=== PATIENT | female | born 1960 | race American Indian/Alaskan Native ===

== ENCOUNTER 2020-07-29 17:53 | Inpatient (IN) | payer MEDICAID ==
[2020-07-29] MEDS ORDERED: Morphine 4 MG/ML Syringe IVPUSH PRN (18:49)
[2020-07-29] MEDS ORDERED: Sodium Chloride 0.9% 10 ML Syringe FLUSH PRN (18:49)
[2020-07-29] MEDS ORDERED: Ondansetron 4 MG/2 ML SDV IVPUSH PRN (18:50)
[2020-07-29] MEDS ORDERED: Morphine 4 MG/ML Syringe IVPUSH ONE (19:54)
--- NOTE | 2020-07-29 20:31 | CRLCR ---
INDICATION: Right hip injury. Fell. TECHNIQUE: Two views of the right hip. COMPARISON: None. FINDINGS: No fracture or other abnormality. IMPRESSION: Negative right hip. Dictated by Jh Baca MD @ Jul 29 2020 8:28PM Signed by Dr. Jh Baca @ Jul 29 2020 8:29PM
[2020-07-29] MEDS ORDERED: Cyclobenzaprine 10 MG Tab PO ONE (21:18)
--- NOTE | 2020-07-29 21:26 | EDM.PDOC ---
ED HPI GENERAL MEDICAL PROBLEM - General Chief Complaint: Lower Extremity Injury/Pain Stated Complaint: RIGHT HIP PAIN Time Seen by Provider: 07/29/20 18:04 - History of Present Illness INITIAL COMMENTS - FREE TEXT/NARRATIVE: patient presents via POV from home due to fall approx 1830. She states she was getting out of vehicle and trying to step over dog leash when she slipped on ice and fell on right hip. she was unable to get up/bear weight after fall, she was/is unable to move anything except foot on right LE--can not lift leg, bend knee or otherwise move except wiggle foot/toes secondary to pain. she states that pain is 8-9/10 sharp stabbing in nature pointing to right hip/greater trochanter area. of note, daughter who patient is with tested + COVID 07/10, she states her isolation ended 07/24 PMH--COPD, DM2 oral meds, vertigo, HTN, HLP-doesnt take her meds for chol, GERD Meds--reviewed in EMR Allergies--compazine, PCN, codien, lortab, gabapentin; states she can take Morphine without any problems Tob-former smoker EtOH--rare Drugs--denies Right Hip Pain Score (Numeric/FACES): 10 - Related Data Allergies Allergy/AdvReac Type Severity Reaction Status Date / Time acetaminophen [From Lortab] Allergy Rash Verified 07/29/20 18:00 codeine Allergy Rash Verified 07/29/20 18:00 gabapentin Allergy Confusion Verified 07/29/20 18:00 hydrocodone [From Lortab] Allergy Rash Verified 07/29/20 18:00 Penicillins Allergy Rash Verified 07/29/20 18:00 prochlorperazine Allergy Anxiety Verified 07/29/20 18:00 [From Compazine] Home Meds: Home Meds Amitriptyline [Elavil] 10 mg PO BEDTIME 07/29/20 [History] DULoxetine [Cymbalta] 30 mg PO BEDTIME 07/29/20 [History] Meclizine [Antivert] 25 mg PO Q6H PRN 07/29/20 [History] glyBURIDE [Glyburide] 5 mg PO BID 07/29/20 [History] metFORMIN [Glucophage] 1,000 mg PO BIDMEALS 07/29/20 [History] Past Medical History Psychiatric History: Reports: Anxiety Endocrine/Metabolic History: Reports: Diabetes, Type II Other Endocrine/Metabolic History: vertigo - Past Surgical History Other Neurological Surgeries/Procedures: diabetic nerve fletcher Social & Family History - Tobacco Use Tobacco Use Status *Q: Never Tobacco User - Recreational Drug Use Recreational Drug Use: No Review of Systems - Review of Systems Review Of Systems: Comprehensive ROS is negative, except as noted in HPI. Constitutional: Reports: No Symptoms Eyes: Reports: No Symptoms Ears: Reports: No Symptoms Nose: Reports: No Symptoms Mouth/Throat: Reports: No Symptoms Respiratory: Reports: No Symptoms Cardiovascular: Reports: No Symptoms GI/Abdominal: Reports: No Symptoms Genitourinary: Reports: No Symptoms Musculoskeletal: Reports: Leg Pain, Joint Pain Skin: Reports: No Symptoms Neurological: Reports: No Symptoms (denies LOC/head injury) Psychiatric: Reports: No Symptoms ED EXAM, GENERAL - Physical Exam Exam: See Below Exam Limited By: No Limitations General Appearance: Alert, WD/WN, Moderate Distress (rates pain 8-9/10 especially sharp with movement) Eye Exam: Bilateral Eye: EOMI, Normal Inspection, PERRL Ears: Normal External Exam, Hearing Grossly Normal Nose: Normal Inspection Throat/Mouth: Normal Inspection, Normal Lips, Normal Oropharynx, No Airway Compromise Head: Atraumatic, Normocephalic Neck: Normal Inspection, Supple, Non-Tender, Full Range of Motion. No: Lymphadenopathy (R), Lymphadenopathy (L) Respiratory/Chest: No Respiratory Distress, Lungs Clear, Normal Breath Sounds, No Accessory Muscle Use, Chest Non-Tender Cardiovascular: Normal Peripheral Pulses, Regular Rate, Rhythm, No Edema, No Murmur GI/Abdominal: Normal Bowel Sounds, Non-Tender, No Distention, Other (obese) (Female) Exam: Deferred Rectal (Female) Exam: Deferred Back Exam: Normal Inspection. No: Paraspinal Tenderness, Vertebral Tenderness Extremities: No Pedal Edema, Normal Capillary Refill, Leg Pain (right greater trochanter/hip tender to light palpitation), Limited Range of Motion (R-LE unable to move at hip, lift off gurney/bend at knee-hip; able to wiggle toes/foot) Neurological: Alert, Oriented, Normal Cognition, Other (no sensory deficit noted on exam of LE-B) Psychiatric: Normal Affect, Normal Mood Skin Exam: Warm, Dry, Intact, Normal Color (no noted eccymosis of right hip area) Course - Vital Signs Text/Narrative:: 2039--update to patient/daughter at bedside; negative plain film of R-hip but due to continued inability to move recommend CT hip/pelvis for further evaluation. verbalized understanding/agreement 2155--case d/w Glen Casanova PA-C Orthopedics @ [facility]; recommended outpatient f/u in 1 week for nondisplaced acetabular fracture/repeat CT for stability at that time 2199--d/w Charlene Jorgensen NP Art Instructor service for admission here at [facility] for pain control, PT/OT evaluation, need for rehab evaluation/placement as patient is unable to be home byself as she currently is living. accepts for admission at this time 2209--d/w patient and daughter at bedside today's ER findings and recommendations in plan of care to include admission for pain control and further rehab evaluation/placement. verbalized understanding/agreement with plan of care at this time Last Recorded V/S: Last Vital Signs Temp 96.8 F L 07/29/20 18:04 Pulse 80 07/29/20 18:44 Resp 16 07/29/20 18:04 BP 125/73 07/29/20 18:44 Pulse Ox 94 L 07/29/20 18:44 - Orders/Labs/Meds Orders: Active Orders 24 hr Category Date Time Status Blood Glucose Check, Bedside [RC] ONETIME Care 07/29/20 18:49 Active Morphine Med 07/29/20 18:49 Active 4 mg IVPUSH Q4H PRN Ondansetron [Zofran] Med 07/29/20 18:50 Active 4 mg IVPUSH Q6H PRN Sodium Chloride 0.9% [Saline Flush] Med 07/29/20 18:49 Active 10 ml FLUSH ASDIRECTED PRN Saline Lock Insert [OM.PC] Routine Oth 07/29/20 18:49 Ordered Medication Orders Morphine Sulfate (Morphine) 4 mg IVPUSH Q4H PRN PRN Reason: Pain (moderate 4-6) Last Admin: 07/29/20 19:09 Dose: 4 mg Documented by: LUCILA Ondansetron HCl (Zofran) 4 mg IVPUSH Q6H PRN PRN Reason: Nausea/Vomiting Last Admin: 07/29/20 19:09 Dose: 4 mg Documented by: LUCILA Sodium Chloride (Saline Flush) 10 ml FLUSH ASDIRECTED PRN PRN Reason: Keep Vein Open Last Admin: 07/29/20 19:14 Dose: 10 ml Documented by: LUCILA Labs: Laboratory Tests 07/29/20 07/29/20 Range/Units 19:09 19:09 WBC 12.0 H (4.5-11.0) K/uL RBC 5.62 H (3.30-5.50) M/uL Hgb 15.7 H (12.0-15.0) g/dL Hct 47.3 (36.0-48.0) % MCV 84 (80-98) fL MCH 28 (27-31) pg MCHC 33 (32-36) % Plt Count 271 (150-400) K/uL Neut % (Auto) 76 H (36-66) % Lymph % (Auto) 17 L (24-44) % [place] % (Auto) 6 (2-6) % Eos % (Auto) 2 (2-4) % Baso % (Auto) 0 (0-1) % Sodium 134 L (140-148) mmol/L Potassium 4.3 (3.6-5.2) mmol/L Chloride 99 L (100-108) mmol/L Carbon Dioxide 25 (21-32) mmol/L Anion Gap 14.3 H (5.0-14.0) mmol/L BUN 19 H (7-18) mg/dL Creatinine 0.9 (0.6-1.0) mg/dL Est Cr Clr Drug Dosing 60.67 mL/min Estimated GFR (MDRD) > 60 (>60) Glucose 432 H* (74-106) mg/dL Calcium 8.6 (8.5-10.1) mg/dL Total Bilirubin 0.6 (0.2-1.0) mg/dL AST 18 (15-37) U/L ALT 37 (12-78) U/L Alkaline Phosphatase 144 H (46-116) U/L Total Protein 7.3 (6.4-8.2) g/dL Albumin 3.3 L (3.4-5.0) g/dL Globulin 4.0 H (2.3-3.5) g/dL Albumin/Globulin Ratio 0.8 L (1.2-2.2) Meds: Medications Generic Name Dose Route Start Last Admin Trade Name Freq PRN Reason Stop Dose Admin Morphine Sulfate 4 mg 07/29/20 18:49 07/29/20 19:09 Morphine IVPUSH 4 mg Q4H PRN Administration Pain (moderate 4-6) Ondansetron HCl 4 mg 07/29/20 18:50 07/29/20 19:09 Zofran IVPUSH 4 mg Q6H PRN Administration Nausea/Vomiting Sodium Chloride 10 ml 07/29/20 18:49 07/29/20 19:14 Saline Flush FLUSH 10 ml ASDIRECTED PRN Administration Keep Vein Open Discontinued Medications Generic Name Dose Route Start Last Admin Trade Name Freq PRN Reason Stop Dose Admin Cyclobenzaprine HCl 10 mg 07/29/20 21:18 07/29/20 21:24 Flexeril PO 07/29/20 21:19 10 mg ONETIME ONE Administration Morphine Sulfate 4 mg 07/29/20 19:54 07/29/20 20:00 Morphine IVPUSH 07/29/20 19:55 4 mg ONETIME ONE Administration - Radiology Interpretation Free Text/Narrative:: radiology report of CT pelvis/hip--1. acute near anatomically aligned R-ischial tuberosity fracture, 2. unusual acute nondisplaced fracture involving R-superior ischiopubic ring, R-acetabular roof & R-ileum CT Results Date: 07/29/20 Departure - Departure Time of Disposition: 22:17 Disposition: Admitted As Inpatient 64 Condition: Good Clinical Impression: Pelvic fracture, Fall on same level from tripping as cause of accidental injury, Type 2 diabetes mellitus with hyperglycemia, without long-term current use of insulin - Discharge Information *PRESCRIPTION DRUG MONITORING PROGRAM REVIEWED*: Not Applicable *COPY OF PRESCRIPTION DRUG MONITORING REPORT IN PATIENT KAEL: Not Applicable Referrals: PCP,None [Primary Care Provider] - Forms: ED Department Discharge Sepsis Event Note (ED) - Evaluation Sepsis Screening Result: No Definite Risk - Focused Exam Vital Signs: Vital Signs Temp Pulse Resp BP Pulse Ox 07/29/20 18:44 80 125/73 94 L 07/29/20 18:04 96.8 F L 88 16 143/92 H 95 07/29/20 17:58 96.8 F L 88 16 143/92 H 95 - My Orders Last 24 Hours: My Active Orders 07/29/20 18:49 Blood Glucose Check, Bedside [RC] ONETIME Morphine 4 mg IVPUSH Q4H PRN Sodium Chloride 0.9% [Saline Flush] 10 ml FLUSH ASDIRECTED PRN Saline Lock Insert [OM.PC] Routine 07/29/20 18:50 Ondansetron [Zofran] 4 mg IVPUSH Q6H PRN - Assessment/Plan Last 24 Hours: My Active Orders 07/29/20 18:49 Blood Glucose Check, Bedside [RC] ONETIME Morphine 4 mg IVPUSH Q4H PRN Sodium Chloride 0.9% [Saline Flush] 10 ml FLUSH ASDIRECTED PRN Saline Lock Insert [OM.PC] Routine 07/29/20 18:50 Ondansetron [Zofran] 4 mg IVPUSH Q6H PRN
--- NOTE | 2020-07-29 21:45 | CRLCT ---
INDICATION: Right hip pain post fall. Plain films negative. COMPARISON: Today`s right hip x-rays. TECHNIQUE: Volumetric helical scanning of the pelvis was performed without IV contrast material. FINDINGS: An acute near-anatomically aligned right ischial tuberosity fracture is demonstrated. An additional acute nondisplaced fracture extends from the right superior ischiopubic ring apparently across the roof of the acetabulum and into the right ilium. No other fracture is apparent. No subluxation/diastasis is noted. No free intraperitoneal blood is evident. The uterus and ovaries are grossly negative. No bowel abnormality or lymphadenopathy is apparent. IMPRESSION: 1. Acute near-anatomically aligned right ischial tuberosity fracture. 2. Unusual acute nondisplaced fracture involving the right superior ischiopubic ring, right acetabular roof and right ilium. Please note that all CT scans at this facility use dose modulation, iterative reconstruction, and/or weight-based dosing when appropriate to reduce radiation dose to as low as reasonably achievable. Dictated by Jh Baca MD @ Jul 29 2020 9:37PM Signed by Dr. Jh Baca @ Jul 29 2020 9:44PM
[2020-07-29] MEDS ORDERED: Glucagon,Human Recombinant 1 MG Vial IM PRN (22:22)
[2020-07-29] MEDS ORDERED: Insulin Regular, Human 100 Units/ML 3 ML Vial SUBCUT ONE (22:22)
[2020-07-29] MEDS ORDERED: 50% Dextrose in Water 50 ML Syringe IVPUSH PRN (22:22)
--- NOTE | 2020-07-29 23:48 | PCM.HP.2 ---
H&P History of Present Illness - General Date of Service: 07/29/20 Admit Problem/Dx: Admission Diagnosis/Problem Admission Diagnosis/Problem Fracture of pelvis Source of Information: Patient, Family (Daughter) History Limitations: Reports: No Limitations - History of Present Illness Initial Comments - Free Text/Narative: chief complaint: Fracture Pelvis, admission for PT/OT This is a 60 year old female present to ER via POV, reports at 5:15 pm today fell getting out of a car, tripped on the dog leash, since injury unable to stand or put any weight on right leg. Injury occurred at Daughter's home. Covid - reports daughter and her family had Covid on Jul 10 and were quarantine til July 24, 2020. report her House has 4 members all negative covid. Onset of Symptoms: Reports: Sudden Symptom Onset Date: 07/29/20 Symptom Onset Time: 17:15 Duration of Symptoms: Reports: Constant Location: Reports: Lower Extremity, Right Quality: Reports: Sharp, Stabbing Severity: Severe Improves with: Reports: Immobilization Worsens with: Reports: Movement Context: Reports: Other (fall at daughter's house) Associated Symptoms: Reports: No Other Symptoms Right Hip Pain Score (Numeric/FACES): 10 - Related Data Allergies/Adverse Reactions: Allergies Allergy/AdvReac Type Severity Reaction Status Date / Time acetaminophen [From Lortab] Allergy Rash Verified 07/29/20 18:00 codeine Allergy Rash Verified 07/29/20 18:00 gabapentin Allergy Confusion Verified 07/29/20 18:00 hydrocodone [From Lortab] Allergy Rash Verified 07/29/20 18:00 Penicillins Allergy Rash Verified 07/29/20 18:00 prochlorperazine Allergy Anxiety Verified 07/29/20 18:00 [From Compazine] Home Medications: Home Meds Amitriptyline [Elavil] 10 mg PO BEDTIME 07/29/20 [History] DULoxetine [Cymbalta] 30 mg PO BEDTIME 07/29/20 [History] Meclizine [Antivert] 25 mg PO Q6H PRN 07/29/20 [History] glyBURIDE [Glyburide] 5 mg PO BID 07/29/20 [History] metFORMIN [Glucophage] 1,000 mg PO BIDMEALS 07/29/20 [History] Past Medical History Psychiatric History: Reports: Anxiety Endocrine/Metabolic History: Reports: Diabetes, Type II Other Endocrine/Metabolic History: vertigo - Past Surgical History Other Neurological Surgeries/Procedures: diabetic nerve fletcher Social & Family History - Tobacco Use Tobacco Use Status *Q: Never Tobacco User - Recreational Drug Use Recreational Drug Use: No - Living Situation & Occupation Living situation: Reports: with Significant Other, with Family Occupation: Retired (lives with Partner of 27 years, 7 year old nephew, cousin, all in [place], [place].) H&P Review of Systems - Review of Systems: Review Of Systems: See Below General: Reports: Other (pelvis and right leg pain) HEENT: Reports: No Symptoms Pulmonary: Reports: No Symptoms Cardiovascular: Reports: No Symptoms Gastrointestinal: Reports: No Symptoms Genitourinary: Reports: No Symptoms Musculoskeletal: Reports: Muscle Pain (muscle spasm in right leg), Other (CT scan non displaced acetabular fracture) Skin: Reports: No Symptoms Psychiatric: Reports: No Symptoms Neurological: Reports: Difficulty Walking (due to pelvic fracture) Hematologic/Lymphatic: Reports: No Symptoms Immunologic: Reports: Other (multi drug allergies) Exam - Exam Exam: See Below - Vital Signs Vital Signs: Last Vital Signs Temp 36.0 C L 07/29/20 18:04 Pulse 88 07/29/20 23:30 Resp 16 07/29/20 18:04 BP 93/60 07/29/20 23:30 Pulse Ox 92 L 07/29/20 23:30 Weight: 86.183 kg - Exam Quality Assessment: Supplemental Oxygen, DVT Prophylaxis General: Sedated (given IV Valium 5 mg for muscle spasm, now sleepy) HEENT: PERRLA, EOMI, Hearing Intact, Mucosa Moist & Angostura, Nares Patent, Normal Nasal Septum, Posterior Pharynx Clear, TMs Clear Neck: Supple, Trachea Midline Lungs: Clear to Auscultation, Normal Respiratory Effort Cardiovascular: Regular Rate, Regular Rhythm, Normal S1, Normal S2 GI/Abdominal Exam: Normal Bowel Sounds, Soft, Non-Tender, Other (low abdomen severe pain with movement) (Female) Exam: Deferred Rectal (Female) Exam: Deferred Extremities: Normal Inspection, Leg Pain (rt), Limited Range of Motion (unable to perform ROM right leg due to pelvis fracture-Pain) Skin: Warm, Dry, Intact Neuro Extensive - Mental Status: Alert, Oriented x3, Normal Mood/Affect, Normal Cognition, Memory Intact Neuro Extensive - Motor, Sensory, Reflexes: Motor/Sensory Deficits Psychiatric: Alert, Normal Affect, Normal Mood Physical Exam Comments:: Lab: Covid-19 negative - Patient Data Lab Results Last 24 hrs: Laboratory Results - last 24 hr 07/29/20 07/29/20 Range/Units 19:09 19:09 WBC 12.0 H (4.5-11.0) K/uL RBC 5.62 H (3.30-5.50) M/uL Hgb 15.7 H (12.0-15.0) g/dL Hct 47.3 (36.0-48.0) % MCV 84 (80-98) fL MCH 28 (27-31) pg MCHC 33 (32-36) % Plt Count 271 (150-400) K/uL Neut % (Auto) 76 H (36-66) % Lymph % (Auto) 17 L (24-44) % [place] % (Auto) 6 (2-6) % Eos % (Auto) 2 (2-4) % Baso % (Auto) 0 (0-1) % Sodium 134 L (140-148) mmol/L Potassium 4.3 (3.6-5.2) mmol/L Chloride 99 L (100-108) mmol/L Carbon Dioxide 25 (21-32) mmol/L Anion Gap 14.3 H (5.0-14.0) mmol/L BUN 19 H (7-18) mg/dL Creatinine 0.9 (0.6-1.0) mg/dL Est Cr Clr Drug Dosing 60.67 mL/min Estimated GFR (MDRD) > 60 (>60) Glucose 432 H* (74-106) mg/dL Calcium 8.6 (8.5-10.1) mg/dL Total Bilirubin 0.6 (0.2-1.0) mg/dL AST 18 (15-37) U/L ALT 37 (12-78) U/L Alkaline Phosphatase 144 H (46-116) U/L Total Protein 7.3 (6.4-8.2) g/dL Albumin 3.3 L (3.4-5.0) g/dL Globulin 4.0 H (2.3-3.5) g/dL Albumin/Globulin Ratio 0.8 L (1.2-2.2) Result Diagrams: 07/29/20 19:09 07/29/20 19:09 Sepsis Event Note - Evaluation Sepsis Screening Result: No Definite Risk - Focused Exam Vital Signs: Vital Signs Temp Pulse Resp BP Pulse Ox 07/29/20 23:30 88 93/60 92 L 07/29/20 21:55 96 90/68 88 L 07/29/20 21:25 90 123/76 90 L 07/29/20 20:56 90 117/65 90 L 07/29/20 20:25 85 138/85 90 L 07/29/20 19:55 84 125/77 90 L 07/29/20 19:52 85 149/79 H 94 L 07/29/20 18:55 85 145/87 H 94 L 07/29/20 18:44 80 125/73 94 L 07/29/20 18:04 36.0 C L 88 16 143/92 H 95 07/29/20 17:58 36.0 C L 88 16 143/92 H 95 - Problem List (1) Pelvic fracture SNOMED Code(s): 48515911 ICD Code: S32.9XXA - FRACTURE OF UNSP PARTS OF LUMBOSACRAL SPINE AND PELVIS, INIT Status: Acute Priority: High Current Visit: Yes Qualifiers: Encounter type: initial encounter Pelvic bone location: multiple parts Fracture type: closed Fracture alignment: with stable disruption of pelvic ring Qualified Code(s): S32.810A - Multiple fractures of pelvis with stable disruption of pelvic ring, initial encounter for closed fracture (2) Type 2 diabetes mellitus with hyperglycemia, without long-term current use of insulin SNOMED Code(s): 36843730, 33349760 ICD Code: E11.65 - TYPE 2 DIABETES MELLITUS WITH HYPERGLYCEMIA Status: Acute Priority: High Current Visit: Yes Problem List Initiated/Reviewed/Updated: Yes Orders Last 24hrs: Active Orders 24 hr Category Date Time Status Patient Status Manage Transfer [TRANSFER] Routine ADT 07/29/20 23:34 Ordered Blood Glucose Check, Bedside [RC] ONETIME Care 07/29/20 18:49 Active CORONAVIRUS COVID-19 JUNG [MOLEC] Routine Lab 07/29/20 23:17 Received GLYCOSYLATED HEMOGLOBIN,HGBA1C [CHEM] Stat Lab 07/29/20 22:00 Received Dextrose 50% in Water Med 07/29/20 22:22 Active 50 ml IVPUSH ASDIRECTED PRN Glucagon,Human Recombinant [GlucaGen] Med 07/29/20 22:22 Active 1 mg IM ASDIRECTED PRN Morphine Med 07/29/20 18:49 Active 4 mg IVPUSH Q4H PRN Ondansetron [Zofran] Med 07/29/20 18:50 Active 4 mg IVPUSH Q6H PRN Sodium Chloride 0.9% [Saline Flush] Med 07/29/20 18:49 Active 10 ml FLUSH ASDIRECTED PRN Saline Lock Insert [OM.PC] Routine Oth 07/29/20 18:49 Ordered Resuscitation Status Routine Resus Stat 07/29/20 23:35 Ordered Medication Orders Dextrose/Water (Dextrose 50% In Water) 50 ml IVPUSH ASDIRECTED PRN PRN Reason: Hypoglycemia Glucagon (Glucagen) 1 mg IM ASDIRECTED PRN PRN Reason: Hypoglycemia Morphine Sulfate (Morphine) 4 mg IVPUSH Q4H PRN PRN Reason: Pain (moderate 4-6) Last Admin: 07/29/20 19:09 Dose: 4 mg Documented by: LUCILA Ondansetron HCl (Zofran) 4 mg IVPUSH Q6H PRN PRN Reason: Nausea/Vomiting Last Admin: 07/29/20 19:09 Dose: 4 mg Documented by: LUCILA Sodium Chloride (Saline Flush) 10 ml FLUSH ASDIRECTED PRN PRN Reason: Keep Vein Open Last Admin: 07/29/20 19:14 Dose: 10 ml Documented by: LUCILA Assessment/Plan Comment:: ASSESSMENT AND PLAN OF CARE - PELVIC FRACTURE This is a 60 year old female present to ER via POV, reports at 5:15 pm today fell getting out of a car, tripped on the dog leash, since injury unable to stand or put any weight on right leg. Injury occurred at Daughter's home. Covid - reports daughter and her family had Covid on Jul 10 and were quarantine til July 24, 2020. report her House has 4 members all negative covid. Imaging CT Scan of Pelvis An acute near-anatomically aligned right ischial tuberosity fracture is demonstrated. An additional acute nondisplaced fracture extends from the right superior ischiopubic ring apparently across the roof of the acetabulum and into the right ilium. No other fracture is apparent. No subluxation/diastasis is noted. No free intraperitoneal blood is evident. The uterus and ovaries are grossly negative. No bowel abnormality or lymphadenopathy is apparent. IMPRESSION: 1. Acute near-anatomically aligned right ischial tuberosity fracture. 2. Unusual acute nondisplaced fracture involving the right superior ischiopubic ring, right acetabular roof and right ilium. discussed with Mrs. Key and Daughter will admit for PT/OT and Pain Control. g iven IV Valium 5mg for muscle spasm and pain. She became sedated and comfortable. PELVIC FRACTURE secondary to fall at home. -pain control -Physical Therapy consult -Occupational Therapy consult -Pressure reduction mattress DIABETES TYPE 2 OUT OF CONTROL, NON INSULIN DEPENDENT- reports has had diabetes since age 23 years old (25 yrs), doesn't follow diet, has medications but doesn't always take as prescribed. No insulin at this time. blood glucose at ER 432- given Insulin regular 15 units. creat 0.9 anion gap 14.3 BUN 19, cl 99, K+ 4.3, Na++134, co2 25. hemoglobin A1c pending. -IV Normal Saline 125ml/hr -Insulin short acting medium dose sliding scale coverage -Blood glucose testing before meals and at bedtime Maintenance issues -Orders home meds: chronic medication -Nutrition: consistent carb diet -Sam catheter -not indicated at this time -DVT: SCD -PPI; IV Protonix 40mg daily -Covid Negative CODE STATUS: FULL Admission status: Admit to [address] [place] [address] Admission justification. This patient will be admitted for inpatient services and is medically appropriate meeting medical necessity for inpatient admission as outlined in my documentation. I reasonably expect the patient will require inpatient services that span. Time over 2 midnights. I reasonably expect this patient to be discharged or transferred within 96 hours after admission to the critical [facility]. Disposition: home with Family or Rehab [facility] [place]. Hospitalist: Dr. Lara - Mortality Measure Prognosis:: Good - Mortality Measure Prognosis:: Good
[2020-07-30] MEDS ORDERED: Meclizine 25 MG Tab PO PRN (00:23)
[2020-07-30] MEDS ORDERED: Albuterol 0.083% 2.5 MG/3 ML Neb Soln NEB PRN (00:23)
[2020-07-30] MEDS ORDERED: Bisacodyl 5 MG Tab PO PRN (00:23)
[2020-07-30] MEDS ORDERED: Sodium Chloride 0.9% 1,000 ML IV SCH (00:23)
[2020-07-30] MEDS ORDERED: Albuterol/Ipratropium 3.0-0.5 MG/3 ML Neb Soln NEB PRN (00:23)
[2020-07-30] MEDS: Morphine 2 MG/ML SYRINGE IVPUSH PRN ×4 (00:57→12:05)
[2020-07-30] MEDS ORDERED: LORazepam 2 MG/ML SDV IVPUSH PRN (01:05)
[2020-07-30] MEDS: Ketorolac 30 MG/ML SDV IVPUSH PRN ×3 (01:30→16:13)
[2020-07-30] MEDS ORDERED: Pantoprazole 40 MG Vial IV SCH (07:30)
[2020-07-30] MEDS: Insulin Lispro 100 Unit/ML 3 ML KwikPen SUBCUT SCH ×4 (08:03→21:20)
[2020-07-30] MEDS: Docusate Sodium 100 MG Cap PO SCH ×2 (08:04→21:20)
[2020-07-30 10:13] LABS: HEMOGLOBIN A1C > 14.0 % (4.5-6.2)
[2020-07-30] MEDS ORDERED: 50% Dextrose in Water 50 ML Syringe IVPUSH PRN (11:50)
[2020-07-30] MEDS ORDERED: Insulin Lispro 100 Units/ML 3 ML Vial SUBCUT ONE (11:50)
[2020-07-30] MEDS ORDERED: Glucagon,Human Recombinant 1 MG Vial IM PRN (11:50)
--- NOTE | 2020-07-30 13:43 | PCM.PN ---
- General Info Date of Service: 07/30/20 Subjective Update: Ms. Key is a 60-year-old woman who was admitted through the emergency department last night after she fell at home and experience significant pelvic pain. On evaluation in the emergency department was found to have evidence of a pelvic fracture and was admitted for pain control as well as intermediate placement. Does have a known and longstanding history of type 2 diabetes mellitus with very poor control, blood sugars have been significantly elevated since admission. Functional Status: Reports: Tolerating Diet, Urinating. Denies: Ambulating - Review of Systems General: Reports: Weakness, Fatigue. Denies: Fever, Chills Pulmonary: Reports: No Symptoms Cardiovascular: Reports: No Symptoms Gastrointestinal: Reports: No Symptoms Genitourinary: Reports: No Symptoms Musculoskeletal: Reports: Other (Pelvic pain) - Patient Data Vitals - Most Recent: Last Vital Signs Temp 96.8 F L 07/30/20 11:36 Pulse 69 07/30/20 11:36 Resp 16 07/30/20 11:36 BP 96/62 07/30/20 11:36 Pulse Ox 96 07/30/20 13:30 Weight - Most Recent: 213 lb 9.6 oz I&O - Last 24 Hours: Intake & Output 07/29/20 07/30/20 07/30/20 22:59 06:59 14:59 Intake Total 1087 Output Total 900 Balance 187 Lab Results Last 24 Hours: Laboratory Results - last 24 hr 07/29/20 07/29/20 07/29/20 Range/Units 19:09 19:09 22:00 WBC 12.0 H (4.5-11.0) K/uL RBC 5.62 H (3.30-5.50) M/uL Hgb 15.7 H (12.0-15.0) g/dL Hct 47.3 (36.0-48.0) % MCV 84 (80-98) fL MCH 28 (27-31) pg MCHC 33 (32-36) % Plt Count 271 (150-400) K/uL Neut % (Auto) 76 H (36-66) % Lymph % (Auto) 17 L (24-44) % [place] % (Auto) 6 (2-6) % Eos % (Auto) 2 (2-4) % Baso % (Auto) 0 (0-1) % Sodium 134 L (140-148) mmol/L Potassium 4.3 (3.6-5.2) mmol/L Chloride 99 L (100-108) mmol/L Carbon Dioxide 25 (21-32) mmol/L Anion Gap 14.3 H (5.0-14.0) mmol/L BUN 19 H (7-18) mg/dL Creatinine 0.9 (0.6-1.0) mg/dL Est Cr Clr Drug Dosing 60.67 mL/min Estimated GFR (MDRD) > 60 (>60) Glucose 432 H* (74-106) mg/dL POC Glucose (74-106) MG/DL Hemoglobin A1c > 14.0 H (4.5-6.2) % Calcium 8.6 (8.5-10.1) mg/dL Total Bilirubin 0.6 (0.2-1.0) mg/dL AST 18 (15-37) U/L ALT 37 (12-78) U/L Alkaline Phosphatase 144 H (46-116) U/L Total Protein 7.3 (6.4-8.2) g/dL Albumin 3.3 L (3.4-5.0) g/dL Globulin 4.0 H (2.3-3.5) g/dL Albumin/Globulin Ratio 0.8 L (1.2-2.2) SARS-CoV-2 RNA (JUNG) (NEGATIVE) 07/29/20 07/30/20 07/30/20 Range/Units 23:17 00:30 05:10 WBC 11.2 H (4.5-11.0) K/uL RBC 5.03 (3.30-5.50) M/uL Hgb 14.1 (12.0-15.0) g/dL Hct 43.0 (36.0-48.0) % MCV 86 (80-98) fL MCH 28 (27-31) pg MCHC 33 (32-36) % Plt Count 256 (150-400) K/uL Neut % (Auto) 68 H (36-66) % Lymph % (Auto) 23 L (24-44) % [place] % (Auto) 7 H (2-6) % Eos % (Auto) 1 L (2-4) % Baso % (Auto) 0 (0-1) % Sodium (140-148) mmol/L Potassium (3.6-5.2) mmol/L Chloride (100-108) mmol/L Carbon Dioxide (21-32) mmol/L Anion Gap (5.0-14.0) mmol/L BUN (7-18) mg/dL Creatinine (0.6-1.0) mg/dL Est Cr Clr Drug Dosing mL/min Estimated GFR (MDRD) (>60) Glucose (74-106) mg/dL POC Glucose 345 H (74-106) MG/DL Hemoglobin A1c (4.5-6.2) % Calcium (8.5-10.1) mg/dL Total Bilirubin (0.2-1.0) mg/dL AST (15-37) U/L ALT (12-78) U/L Alkaline Phosphatase (46-116) U/L Total Protein (6.4-8.2) g/dL Albumin (3.4-5.0) g/dL Globulin (2.3-3.5) g/dL Albumin/Globulin Ratio (1.2-2.2) SARS-CoV-2 RNA (JUNG) Negative (NEGATIVE) 07/30/20 07/30/20 07/30/20 Range/Units 05:10 07:30 11:45 WBC (4.5-11.0) K/uL RBC (3.30-5.50) M/uL Hgb (12.0-15.0) g/dL Hct (36.0-48.0) % MCV (80-98) fL MCH (27-31) pg MCHC (32-36) % Plt Count (150-400) K/uL Neut % (Auto) (36-66) % Lymph % (Auto) (24-44) % [place] % (Auto) (2-6) % Eos % (Auto) (2-4) % Baso % (Auto) (0-1) % Sodium 137 L (140-148) mmol/L Potassium 4.2 (3.6-5.2) mmol/L Chloride 103 (100-108) mmol/L Carbon Dioxide 26 (21-32) mmol/L Anion Gap 12.2 (5.0-14.0) mmol/L BUN 23 H (7-18) mg/dL Creatinine 1.2 H (0.6-1.0) mg/dL Est Cr Clr Drug Dosing 45.50 mL/min Estimated GFR (MDRD) 46 L (>60) Glucose 349 H (74-106) mg/dL POC Glucose 303 H 466 H (74-106) MG/DL Hemoglobin A1c (4.5-6.2) % Calcium 8.1 L (8.5-10.1) mg/dL Total Bilirubin (0.2-1.0) mg/dL AST (15-37) U/L ALT (12-78) U/L Alkaline Phosphatase (46-116) U/L Total Protein (6.4-8.2) g/dL Albumin (3.4-5.0) g/dL Globulin (2.3-3.5) g/dL Albumin/Globulin Ratio (1.2-2.2) SARS-CoV-2 RNA (JUNG) (NEGATIVE) Med Orders - Current: Current Medications Acetaminophen (Tylenol) 650 mg PO Q4H PRN PRN Reason: Pain Albuterol (Proventil Neb Soln) 2.5 mg NEB Q4H PRN PRN Reason: Shortness Of Breath/wheezing Albuterol/Ipratropium (Duoneb 3.0-0.5 Mg/3 Ml) 3 ml NEB QID PRN PRN Reason: Shortness Of Breath/wheezing Amitriptyline HCl (Elavil) 10 mg PO BEDTIME ULYSSES Bisacodyl (Dulcolax) 5 mg PO DAILY PRN PRN Reason: Constipation Dextrose/Water (Dextrose 50% In Water) 50 ml IVPUSH ASDIRECTED PRN PRN Reason: Hypoglycemia Docusate Sodium (Colace) 100 mg PO BID [facility] Last Admin: 07/30/20 08:04 Dose: 100 mg Documented by: Duloxetine HCl (Cymbalta) 30 mg PO BEDTIME [facility] Glucagon (Glucagen) 1 mg IM ASDIRECTED PRN PRN Reason: Hypoglycemia Glyburide (Micronase) 5 mg PO BIDMEALS [facility] Last Admin: 07/30/20 08:04 Dose: 5 mg Documented by: Influenza Virus Vaccine (Fluzone Quad [id number] Syringe) 60 mcg IM .ONCE ONE Stop: 07/31/20 09:01 Insulin Glargine (Lantus Solostar) 24 units SUBCUT BEDTIME [facility] Insulin Human Lispro (Humalog) 0 unit SUBCUT QIDACANDBED [facility]; Protocol Ketorolac Tromethamine (Toradol) 30 mg IVPUSH Q6H PRN PRN Reason: Pain Stop: 08/04/20 01:04 Last Admin: 07/30/20 08:30 Dose: 30 mg Documented by: Meclizine HCl (Antivert) 25 mg PO Q6H PRN PRN Reason: Dizziness Metformin [facility] (Glucophage) [facility] Ondansetron HCl (Zofran) 4 mg IVPUSH Q6H PRN PRN Reason: Nausea/Vomiting Last Admin: 07/29/20 19:09 Dose: 4 mg Documented by: Ondansetron HCl (Zofran Odt) 4 mg PO Q6H PRN PRN Reason: Nausea able to take PO Oxycodone HCl (Oxycodone) 10 mg PO Q4H PRN PRN Reason: Pain Pantoprazole Sodium (Protonix) 40 mg PO ACBREAKFAST [facility] Discontinued Medications Cyclobenzaprine HCl (Flexeril) 10 mg PO ONETIME ONE Stop: 07/29/20 21:19 Last Admin: 07/29/20 21:24 Dose: 10 mg Documented by: Diazepam (Valium) 5 mg IVPUSH ONETIME ONE Stop: 07/29/20 22:41 Last Admin: 07/29/20 22:46 Dose: 5 mg Documented by: Sodium Chloride (Normal Saline) 1,000 mls @ 125 mls/hr IV ASDIRECTED [facility] Last Admin: 07/30/20 01:23 Dose: 125 mls/hr Documented by: Influenza Virus Vaccine (Pharmacy To Dose - Influenza Vaccine) 1 each IM ONETIME ONE Stop: 07/31/20 09:01 Insulin Human Lispro (Humalog) 0 unit SUBCUT QIDACANDBED [facility]; Protocol Last Admin: 07/30/20 11:51 Dose: Not Given Documented by: Insulin Human Lispro (Humalog) 12 unit SUBCUT ONETIME ONE Stop: 07/30/20 11:51 Last Admin: 07/30/20 12:02 Dose: 12 units Documented by: Insulin Human Regular (Humulin R) 15 unit SUBCUT ONETIME ONE Stop: 07/29/20 22:23 Last Admin: 07/29/20 22:47 Dose: 15 units Documented by: Lorazepam (Ativan) 0.5 - 1 mg IVPUSH Q4H PRN PRN Reason: Anxiety Last Admin: 07/30/20 01:30 Dose: 1 mg Documented by: Morphine Sulfate (Morphine) 4 mg IVPUSH Q4H PRN PRN Reason: Pain (moderate 4-6) Last Admin: 07/29/20 19:09 Dose: 4 mg Documented by: Morphine Sulfate (Morphine) 4 mg IVPUSH ONETIME ONE Stop: 07/29/20 19:55 Last Admin: 07/29/20 20:00 Dose: 4 mg Documented by: Morphine Sulfate (Morphine) 2 mg IVPUSH Q2H PRN PRN Reason: Pain (severe 7-10) Last Admin: 07/30/20 12:05 Dose: 2 mg Documented by: Pantoprazole Sodium (Protonix Iv) 40 mg IV ACBREAKFAST ULYSSES Last Admin: 07/30/20 08:04 Dose: 40 mg Documented by: Sodium Chloride (Saline Flush) 10 ml FLUSH ASDIRECTED PRN PRN Reason: Keep Vein Open Last Admin: 07/29/20 19:14 Dose: 10 ml Documented by: - Exam Quality Assessment: DVT Prophylaxis General: Alert, Oriented, Cooperative, Moderate Distress Lungs: Clear to Auscultation, Normal Respiratory Effort Cardiovascular: Regular Rate, Regular Rhythm, No Murmurs GI/Abdominal Exam: Soft, Non-Tender, No Organomegaly, No Distention Extremities: Non-Tender, No Pedal Edema Sepsis Event Note - Evaluation Sepsis Screening Result: No Definite Risk - Focused Exam Vital Signs: Vital Signs Temp Pulse Resp BP Pulse Ox 07/30/20 13:30 96 07/30/20 11:36 96.8 F L 69 16 96/62 96 07/30/20 07:03 96 F L 67 16 95/55 L 97 - Problem List Review Problem List Initiated/Reviewed/Updated: Yes - My Orders Last 24 Hours: My Active Orders 07/30/20 13:38 Acetaminophen [TylenoL] 650 mg PO Q4H PRN oxyCODONE 10 mg PO Q4H PRN 07/30/20 13:40 Convert IV to Saline Lock [OM.PC] Routine 07/30/20 16:30 GLUCOSE POC LAB TO COLLECT JPM [POC] QIDACANDBED 07/30/20 17:00 Insulin Lispro [HumaLOG] See Protocol SUBCUT QIDACANDBED metFORMIN [Glucophage] 500 mg PO BIDMEALS 07/30/20 21:00 GLUCOSE POC LAB TO COLLECT JPM [POC] QIDACANDBED Insulin Glarg,Human.Rec.Analog [LantUS Solostar] 24 units SUBCUT BEDTIME 07/31/20 05:00 BASIC METABOLIC PANEL,BMP [CHEM] Timed CBC WITH AUTO DIFF [HEME] Timed 07/31/20 07:30 GLUCOSE POC LAB TO COLLECT JPM [POC] QIDACANDBED 07/31/20 09:00 Flu Vacc [id number](6Mos Up)/Pf [Fluzone Quad Syringe] 60 mcg IM .ONCE ONE 07/31/20 11:30 GLUCOSE POC LAB TO COLLECT JPM [POC] QIDACANDBED 07/31/20 16:30 GLUCOSE POC LAB TO COLLECT JPM [POC] QIDACANDBED 07/31/20 21:00 GLUCOSE POC LAB TO COLLECT JPM [POC] QIDACANDBED 08/01/20 07:30 GLUCOSE POC LAB TO COLLECT JPM [POC] QIDACANDBED 08/01/20 11:30 GLUCOSE POC LAB TO COLLECT JPM [POC] QIDACANDBED 08/01/20 16:30 GLUCOSE POC LAB TO COLLECT JPM [POC] QIDACANDBED 08/01/20 21:00 GLUCOSE POC LAB TO COLLECT JPM [POC] QIDACANDBED 08/02/20 07:30 GLUCOSE POC LAB TO COLLECT JPM [POC] QIDACANDBED 08/02/20 11:30 GLUCOSE POC LAB TO COLLECT JPM [POC] QIDACANDBED 08/02/20 16:30 GLUCOSE POC LAB TO COLLECT JPM [POC] QIDACANDBED 08/02/20 21:00 GLUCOSE POC LAB TO COLLECT JPM [POC] QIDACANDBED 08/03/20 07:30 GLUCOSE POC LAB TO COLLECT JPM [POC] QIDACANDBED 08/03/20 11:30 GLUCOSE POC LAB TO COLLECT JPM [POC] QIDACANDBED 08/03/20 16:30 GLUCOSE POC LAB TO COLLECT JPM [POC] QIDACANDBED 08/03/20 21:00 GLUCOSE POC LAB TO COLLECT JPM [POC] QIDACANDBED 08/04/20 07:30 GLUCOSE POC LAB TO COLLECT JPM [POC] QIDACANDBED - Plan Plan:: ASSESSMENT AND PLAN OF CARE PELVIC FRACTURE secondary to fall at home. Reviewed by orthopedic surgery, no surgical indication -Conservative management -pain control -Physical Therapy consult -Occupational Therapy consult -Pressure reduction mattress DIABETES TYPE 2 OUT OF CONTROL, NON INSULIN DEPENDENT- reports has had diabetes since age 23 years old (25 yrs), doesn't follow diet, has medications but doesn't always take as prescribed. A1c significantly elevated at 14, blood sugars elevated since admission -Start Lantus 24 units subcu nightly -Start Metformin 500 mg p.o. twice daily -Saline lock IV -Insulin short acting medium dose sliding scale coverage -Blood glucose testing before meals and at bedtime Maintenance issues -Nutrition: consistent carb diet -Sam catheter -not indicated at this time -DVT: Over Bear 40 mg subcu daily -PPI; IV Protonix 40mg daily -Covid Negative CODE STATUS: FULL Admission justification. This patient will be admitted for inpatient services and is medically appropriate meeting medical necessity for inpatient admission as outlined in my documentation. I reasonably expect the patient will require inpatient services that span. Time over 2 midnights. I reasonably expect this patient to be discharged or transferred within 96 hours after admission to the critical access hospital. Disposition: Will require intermediate placement for acute rehab Primary care provider: Dr. Nandini Montoya, [facility] [place]. and [facility] [place]. Hospitalist: Dr. Lara - Mortality Measure Prognosis:: Good
[2020-07-30] MEDS: oxyCODONE 5 MG Tab PO PRN ×2 (13:52→19:50)
[2020-07-30] MEDS: Enoxaparin 40 MG/0.4 ML Syringe SUBCUT SCH (13:53)
[2020-07-30] MEDS: metFORMIN 500 MG Tab PO SCH (17:12)
[2020-07-30] MEDS: Acetaminophen 325 MG Tab PO PRN (19:50)
[2020-07-30] MEDS ORDERED: Insulin Glargine,Human Rec. Analog 100 Units/ML 3 ML Pen SUBCUT SCH (21:00)
[2020-07-30] MEDS: Amitriptyline 10 MG Tab PO SCH (21:21)
[2020-07-30] MEDS: DULoxetine 30 MG Cap PO SCH (21:21)
[2020-07-31] MEDS: Ketorolac 30 MG/ML SDV IVPUSH PRN ×2 (00:13→06:02)
[2020-07-31] MEDS: Acetaminophen 325 MG Tab PO PRN ×2 (00:14→06:02)
[2020-07-31] MEDS: oxyCODONE 5 MG Tab PO PRN ×3 (00:14→09:57)
[2020-07-31] MEDS: Pantoprazole 40 MG Tab.CR PO SCH (07:55)
[2020-07-31] MEDS: Insulin Lispro 100 Unit/ML 3 ML KwikPen SUBCUT SCH ×4 (08:24→21:36)
[2020-07-31] MEDS: metFORMIN 500 MG Tab PO SCH ×2 (08:25→17:24)
[2020-07-31] MEDS: Docusate Sodium 100 MG Cap PO SCH ×2 (08:26→20:40)
[2020-07-31] MEDS ORDERED: FLU VACC QS2020-21(6MOS UP)/PF 60 MCG/0.5 ML SYRINGE IM ONE (09:00)
[2020-07-31] MEDS: Ondansetron 4 MG Tab.DIS PO PRN ×2 (10:55→15:41)
[2020-07-31] MEDS ORDERED: tiZANidine 4 MG Tab PO PRN (11:39)
--- NOTE | 2020-07-31 11:41 | PCM.PN ---
- General Info Date of Service: 07/31/20 Subjective Update: No acute events overnight. Pain is a little better today but still having a fair amount of pain in the right hip and groin area. She is struggling with vertigo today and has significant nausea and dizziness. Both of these are better when she lays down and keeps her eyes closed. She still is having difficulty bearing weight on the right hip. Blood sugars are still quite elevated but seem to be slowly coming down. Functional Status: Reports: Pain Controlled, Tolerating Diet - Review of Systems Gastrointestinal: Reports: Nausea Neurological: Reports: Dizziness - Patient Data Vitals - Most Recent: Last Vital Signs Temp 36.0 C L 07/31/20 07:47 Pulse 67 07/31/20 07:47 Resp 18 07/31/20 07:47 BP 102/63 07/31/20 07:47 Pulse Ox 97 07/31/20 07:47 Weight - Most Recent: 96.887 kg I&O - Last 24 Hours: Intake & Output 07/30/20 07/31/20 07/31/20 22:59 06:59 14:59 Intake Total 1700 450 Output Total 700 600 100 Balance -700 1100 350 Lab Results Last 24 Hours: Laboratory Results - last 24 hr 07/30/20 07/30/20 07/30/20 Range/Units 11:45 16:54 21:08 WBC (4.5-11.0) K/uL RBC (3.30-5.50) M/uL Hgb (12.0-15.0) g/dL Hct (36.0-48.0) % MCV (80-98) fL MCH (27-31) pg MCHC (32-36) % Plt Count (150-400) K/uL Neut % (Auto) (36-66) % Lymph % (Auto) (24-44) % [place] % (Auto) (2-6) % Eos % (Auto) (2-4) % Baso % (Auto) (0-1) % Sodium (140-148) mmol/L Potassium (3.6-5.2) mmol/L Chloride (100-108) mmol/L Carbon Dioxide (21-32) mmol/L Anion Gap (5.0-14.0) mmol/L BUN (7-18) mg/dL Creatinine (0.6-1.0) mg/dL Est Cr Clr Drug Dosing mL/min Estimated GFR (MDRD) (>60) Glucose (74-106) mg/dL POC Glucose 466 H 325 H 320 H (74-106) MG/DL Calcium (8.5-10.1) mg/dL 07/31/20 07/31/20 07/31/20 Range/Units 03:55 03:55 07:30 WBC 10.8 (4.5-11.0) K/uL RBC 4.84 (3.30-5.50) M/uL Hgb 13.7 (12.0-15.0) g/dL Hct 42.0 (36.0-48.0) % MCV 87 (80-98) fL MCH 28 (27-31) pg MCHC 33 (32-36) % Plt Count 222 (150-400) K/uL Neut % (Auto) 64 (36-66) % Lymph % (Auto) 25 (24-44) % [place] % (Auto) 8 H (2-6) % Eos % (Auto) 3 (2-4) % Baso % (Auto) 0 (0-1) % Sodium 135 L (140-148) mmol/L Potassium 4.0 (3.6-5.2) mmol/L Chloride 101 (100-108) mmol/L Carbon Dioxide 25 (21-32) mmol/L Anion Gap 13.0 (5.0-14.0) mmol/L BUN 26 H (7-18) mg/dL Creatinine 1.0 (0.6-1.0) mg/dL Est Cr Clr Drug Dosing 54.60 mL/min Estimated GFR (MDRD) 56 L (>60) Glucose 281 H (74-106) mg/dL POC Glucose 391 H (74-106) MG/DL Calcium 7.9 L (8.5-10.1) mg/dL 07/31/20 Range/Units 11:30 WBC (4.5-11.0) K/uL RBC (3.30-5.50) M/uL Hgb (12.0-15.0) g/dL Hct (36.0-48.0) % MCV (80-98) fL MCH (27-31) pg MCHC (32-36) % Plt Count (150-400) K/uL Neut % (Auto) (36-66) % Lymph % (Auto) (24-44) % [place] % (Auto) (2-6) % Eos % (Auto) (2-4) % Baso % (Auto) (0-1) % Sodium (140-148) mmol/L Potassium (3.6-5.2) mmol/L Chloride (100-108) mmol/L Carbon Dioxide (21-32) mmol/L Anion Gap (5.0-14.0) mmol/L BUN (7-18) mg/dL Creatinine (0.6-1.0) mg/dL Est Cr Clr Drug Dosing mL/min Estimated GFR (MDRD) (>60) Glucose (74-106) mg/dL POC Glucose 286 H (74-106) MG/DL Calcium (8.5-10.1) mg/dL Med Orders - Current: Current Medications Acetaminophen (Tylenol) 650 mg PO Q4H PRN PRN Reason: Pain Last Admin: 07/31/20 06:02 Dose: 650 mg Documented by: Albuterol (Proventil Neb Soln) 2.5 mg NEB Q4H PRN PRN Reason: Shortness Of Breath/wheezing Albuterol/Ipratropium (Duoneb 3.0-0.5 Mg/3 Ml) 3 ml NEB QID PRN PRN Reason: Shortness Of Breath/wheezing Amitriptyline HCl (Elavil) 10 mg PO BEDTIME [facility] Last Admin: 07/30/20 21:21 Dose: 10 mg Documented by: Bisacodyl (Dulcolax) 5 mg PO DAILY PRN PRN Reason: Constipation Dextrose/Water (Dextrose 50% In Water) 50 ml IVPUSH ASDIRECTED PRN PRN Reason: Hypoglycemia Docusate Sodium (Colace) 100 mg PO BID [facility] Last Admin: 07/31/20 08:26 Dose: 100 mg Documented by: Duloxetine HCl (Cymbalta) 30 mg PO BEDTIME [facility] Last Admin: 07/30/20 21:21 Dose: 30 mg Documented by: Enoxaparin Sodium (Lovenox) 40 mg SUBCUT Q24H [facility] Last Admin: 07/30/20 13:53 Dose: 40 mg Documented by: Glucagon (Glucagen) 1 mg IM ASDIRECTED PRN PRN Reason: Hypoglycemia Glyburide (Micronase) 5 mg PO BIDMEALS [facility] Last Admin: 07/31/20 08:25 Dose: 5 mg Documented by: Ketorolac Tromethamine (Toradol) 30 mg IVPUSH Q6H PRN PRN Reason: Pain Stop: 08/04/20 01:04 Last Admin: 07/31/20 06:02 Dose: 30 mg Documented by: Meclizine HCl (Antivert) 25 mg PO Q6H PRN PRN Reason: Dizziness Metformin HCl (Glucophage) 500 mg PO BIDMEALS [facility] Last Admin: 07/31/20 08:25 Dose: 500 mg Documented by: Ondansetron HCl (Zofran) 4 mg IVPUSH Q6H PRN PRN Reason: Nausea/Vomiting Last Admin: 07/29/20 19:09 Dose: 4 mg Documented by: Ondansetron HCl (Zofran Odt) 4 mg PO Q6H PRN PRN Reason: Nausea able to take PO Last Admin: 07/31/20 10:55 Dose: 4 mg Documented by: Oxycodone HCl (Oxycodone) 10 mg PO Q4H PRN PRN Reason: Pain Last Admin: 07/31/20 09:57 Dose: 10 mg Documented by: Pantoprazole [facility]ix) [facility] Last Admin: 07/31/20 07:55 Dose: 40 mg Documented by: Discontinued Medications Cyclobenzaprine HCl (Flexeril) 10 mg PO ONETIME ONE Stop: 07/29/20 21:19 Last Admin: 07/29/20 21:24 Dose: 10 mg Documented by: Diazepam (Valium) 5 mg IVPUSH ONETIME ONE Stop: 07/29/20 22:41 Last Admin: 07/29/20 22:46 Dose: 5 mg Documented by: Sodium Chloride (Normal Saline) 1,000 mls @ 125 mls/hr IV ASDIRECTED [facility] Last Admin: 07/30/20 01:23 Dose: 125 mls/hr Documented by: Influenza Virus Vaccine (Pharmacy To Dose - Influenza Vaccine) 1 each IM ONETIME ONE Stop: 07/31/20 09:01 Influenza Virus Vaccine (Fluzone Quad [id number] Syringe) 60 mcg IM .ONCE ONE Stop: 07/31/20 09:01 Last Admin: 07/31/20 09:50 Dose: 60 mcg Documented by: Insulin Glargine (Lantus Solostar) 24 units SUBCUT BEDTIME ULYSSES Last Admin: 07/30/20 21:21 Dose: 24 units Documented by: Insulin Human Lispro (Humalog) 0 unit SUBCUT QIDACANDBED [facility]; Protocol Last Admin: 07/30/20 11:51 Dose: Not Given Documented by: Insulin Human Lispro (Humalog) 12 unit SUBCUT ONETIME ONE Stop: 07/30/20 11:51 Last Admin: 07/30/20 12:02 Dose: 12 units Documented by: Insulin Human Lispro (Humalog) 0 unit SUBCUT QIDACANDBED [facility]; Protocol Last Admin: 07/31/20 08:24 Dose: 10 units Documented by: Insulin Human Regular (Humulin R) 15 unit SUBCUT ONETIME ONE Stop: 07/29/20 22:23 Last Admin: 07/29/20 22:47 Dose: 15 units Documented by: Lorazepam (Ativan) 0.5 - 1 mg IVPUSH Q4H PRN PRN Reason: Anxiety Last Admin: 07/30/20 01:30 Dose: 1 mg Documented by: Morphine Sulfate (Morphine) 4 mg IVPUSH Q4H PRN PRN Reason: Pain (moderate 4-6) Last Admin: 07/29/20 19:09 Dose: 4 mg Documented by: Morphine Sulfate (Morphine) 4 mg IVPUSH ONETIME ONE Stop: 07/29/20 19:55 Last Admin: 07/29/20 20:00 Dose: 4 mg Documented by: Morphine Sulfate (Morphine) 2 mg IVPUSH Q2H PRN PRN Reason: Pain (severe 7-10) Last Admin: 07/30/20 12:05 Dose: 2 mg Documented by: Pantoprazole Sodium (Protonix Iv) 40 mg IV ACBREAKFAST ULYSSES Last Admin: 07/30/20 08:04 Dose: 40 mg Documented by: Sodium Chloride (Saline Flush) 10 ml FLUSH ASDIRECTED PRN PRN Reason: Keep Vein Open Last Admin: 07/29/20 19:14 Dose: 10 ml Documented by: - Exam Quality Assessment: No: Supplemental Oxygen General: Alert, Cooperative, Mild Distress Lungs: Normal Respiratory Effort. No: Wheezing GI/Abdominal Exam: Soft, No Distention Extremities: No Pedal Edema. No: Increased Warmth Skin: Warm, Dry Psy/Mental Status: Alert, Normal Affect Sepsis Event Note - Evaluation Sepsis Screening Result: No Definite Risk - Focused Exam Vital Signs: Vital Signs Temp Pulse Resp BP Pulse Ox 07/31/20 07:47 36.0 C L 67 18 102/63 97 07/31/20 04:00 35.7 C L 81 16 120/68 96 07/31/20 00:00 36.7 C 71 18 130/53 L 96 - Problem List Review Problem List Initiated/Reviewed/Updated: Yes - My Orders Last 24 Hours: My Active Orders 07/31/20 11:39 tiZANidine [Zanaflex] 2 mg PO Q6H PRN 07/31/20 17:00 Insulin Lispro [HumaLOG] See Protocol SUBCUT QIDACANDBED 07/31/20 21:00 Insulin Glarg,Human.Rec.Analog [LantUS Solostar] 30 units SUBCUT BEDTIME 08/01/20 01:15 Insert Sam Catheter [Insert Urinary Catheter] [OM.PC] Q24H 08/01/20 05:00 BASIC METABOLIC PANEL,BMP [CHEM] Timed - Plan Plan:: ASSESSMENT AND PLAN OF CARE PELVIC FRACTURE-secondary to fall at home. Reviewed by orthopedic surgery, no surgical indication. Pain is a little better today. -Conservative management -pain control -Physical Therapy consult -Occupational Therapy consult -Pressure reduction mattress DIABETES TYPE 2, poorly controlled- A1c significantly elevated at 14. Blood sugar still quite elevated but slowly trending down. -Increase Lantus to 30 units at bedtime -Continue metformin 500 mg p.o. twice daily -Saline lock IV -Insulin short acting high dose sliding scale coverage -Blood glucose testing before meals and at bedtime Maintenance issues -Nutrition: consistent carb diet -DVT: Enoxaparin 40 mg subcu daily -GI; IV Protonix 40mg daily Disposition: Will require [facility] placement for acute rehab Primary care provider: Dr[facility] Nandini Montoya, [facility] Dominic Benjamin MD
[2020-07-31] MEDS: Enoxaparin 40 MG/0.4 ML Syringe SUBCUT SCH (15:00)
[2020-07-31] MEDS: tiZANidine 2 MG Tab PO PRN (16:18)
[2020-07-31] MEDS: Amitriptyline 10 MG Tab PO SCH (20:40)
[2020-07-31] MEDS: DULoxetine 30 MG Cap PO SCH (20:40)
[2020-07-31] MEDS ORDERED: Insulin Glargine,Human Rec. Analog 100 Units/ML 3 ML Pen SUBCUT SCH (21:00)
[2020-08-01] MEDS: oxyCODONE 5 MG Tab PO PRN ×5 (00:09→18:21)
[2020-08-01] MEDS: tiZANidine 2 MG Tab PO PRN ×2 (00:10→12:41)
[2020-08-01] MEDS: Ketorolac 30 MG/ML SDV IVPUSH PRN ×2 (00:23→21:49)
[2020-08-01] MEDS: Acetaminophen 325 MG Tab PO PRN (04:18)
[2020-08-01] MEDS: Insulin Lispro 100 Unit/ML 3 ML KwikPen SUBCUT SCH ×4 (07:29→21:44)
[2020-08-01] MEDS: metFORMIN 500 MG Tab PO SCH ×2 (07:30→16:53)
[2020-08-01] MEDS: Pantoprazole 40 MG Tab.CR PO SCH (07:30)
[2020-08-01] MEDS: Docusate Sodium 100 MG Cap PO SCH ×2 (09:12→21:44)
--- NOTE | 2020-08-01 12:00 | PCM.PN ---
- General Info Date of Service: 08/01/20 Subjective Update: Patient had some difficulty with increased pain overnight due to muscle spasm. Pain is better today but she is still having some intermittent difficulties with muscle spasm. She has difficulty bearing weight but is doing better today than yesterday. Her vertigo has resolved and she is no longer nauseated. Blood sugars have been improving and her blood sugar this morning was in the 160 range. She has not had any fevers. She says overall she is feeling better. Functional Status: Reports: Pain Controlled, Tolerating Diet - Review of Systems General: Denies: Fever Musculoskeletal: Reports: Leg Pain (right hip ) - Patient Data Vitals - Most Recent: Last Vital Signs Temp 36.1 C 08/01/20 11:10 Pulse 79 08/01/20 11:10 Resp 16 08/01/20 11:10 BP 100/60 08/01/20 11:10 Pulse Ox 90 L 08/01/20 11:10 Weight - Most Recent: 96.887 kg I&O - Last 24 Hours: Intake & Output 07/31/20 08/01/20 08/01/20 22:59 06:59 14:59 Intake Total 620 440 Output Total 450 950 Balance 170 -950 440 Lab Results Last 24 Hours: Laboratory Results - last 24 hr 07/31/20 07/31/20 08/01/20 Range/Units 16:30 21:00 05:46 Sodium 136 L (140-148) mmol/L Potassium 4.0 (3.6-5.2) mmol/L Chloride 100 (100-108) mmol/L Carbon Dioxide 25 (21-32) mmol/L Anion Gap 15.0 H (5.0-14.0) mmol/L BUN 23 H (7-18) mg/dL Creatinine 0.9 (0.6-1.0) mg/dL Est Cr Clr Drug Dosing 61.00 mL/min Estimated GFR (MDRD) > 60 (>60) Glucose 143 H (74-106) mg/dL POC Glucose 258 H 273 H (74-106) MG/DL Calcium 8.3 L (8.5-10.1) mg/dL 08/01/20 08/01/20 Range/Units 07:30 11:30 Sodium (140-148) mmol/L Potassium (3.6-5.2) mmol/L Chloride (100-108) mmol/L Carbon Dioxide (21-32) mmol/L Anion Gap (5.0-14.0) mmol/L BUN (7-18) mg/dL Creatinine (0.6-1.0) mg/dL Est Cr Clr Drug Dosing mL/min Estimated GFR (MDRD) (>60) Glucose (74-106) mg/dL POC Glucose 156 H 278 H (74-106) MG/DL Calcium (8.5-10.1) mg/dL Med Orders - Current: Current Medications Acetaminophen (Tylenol) 650 mg PO Q4H PRN PRN Reason: Pain Last Admin: 08/01/20 04:18 Dose: 650 mg Documented by: Albuterol (Proventil Neb Soln) 2.5 mg NEB Q4H PRN PRN Reason: Shortness Of Breath/wheezing Amitriptyline HCl (Elavil) 10 mg PO BEDTIME [facility] Last Admin: 07/31/20 20:40 Dose: 10 mg Documented by: Bisacodyl (Dulcolax) 5 mg PO DAILY PRN PRN Reason: Constipation Dextrose/Water (Dextrose 50% In Water) 50 ml IVPUSH ASDIRECTED PRN PRN Reason: Hypoglycemia Docusate Sodium (Colace) 100 mg PO BID [facility] Last Admin: 08/01/20 09:12 Dose: Not Given Documented by: Duloxetine HCl (Cymbalta) 30 mg PO BEDTIME [facility] Last Admin: 07/31/20 20:40 Dose: 30 mg Documented by: Enoxaparin Sodium (Lovenox) 40 mg SUBCUT Q24H [facility] Last Admin: 07/31/20 15:00 Dose: 40 mg Documented by: Glucagon (Glucagen) 1 mg IM ASDIRECTED PRN PRN Reason: Hypoglycemia Glyburide (Micronase) 5 mg PO BIDMEALS [facility] Last Admin: 08/01/20 07:31 Dose: 5 mg Documented by: Insulin Human Lispro (Humalog) 0 unit SUBCUT QIDACANDBED [facility]; Protocol Last Admin: 08/01/20 11:21 Dose: 6 units Documented by: Ketorolac Tromethamine (Toradol) 30 mg IVPUSH Q6H PRN PRN Reason: Pain Stop: 08/04/20 01:04 Last Admin: 08/01/20 00:23 Dose: 30 mg Documented by: Meclizine HCl (Antivert) 25 mg PO Q6H PRN PRN Reason: Dizziness Last Admin: 07/31/20 15:41 Dose: 25 mg Documented by: Metformin HCl (Glucophage) 500 mg PO BIDMEALS [facility] Last Admin: 08/01/20 07:30 Dose: 500 mg Documented by: Ondansetron HCl (Zofran) 4 mg IVPUSH Q6H PRN PRN Reason: Nausea/Vomiting Last Admin: 07/29/20 19:09 Dose: 4 mg Documented by: Ondansetron HCl (Zofran Odt) 4 mg PO Q6H PRN PRN Reason: Nausea able to take PO Last Admin: 07/31/20 15:41 Dose: 4 mg Documented by: Oxycodone HCl (Oxycodone) 10 mg PO Q4H PRN PRN Reason: Pain Last Admin: 08/01/20 09:15 Dose: 10 mg Documented by: Pantoprazole Sodium (Protonix) 40 mg PO ACBREAKFAST [facility] Last Admin: 08/01/20 07:30 Dose: 40 mg Documented by: Tizanidine HCl (Zanaflex) 2 mg PO Q6H PRN PRN Reason: Muscle Spasm Last Admin: 08/01/20 00:10 Dose: 2 mg Documented by: Discontinued Medications Albuterol/Ipratropium (Duoneb 3.0-0.5 Mg/3 Ml) 3 ml NEB QID PRN PRN Reason: Shortness Of Breath/wheezing Cyclobenzaprine HCl (Flexeril) 10 mg PO ONETIME ONE Stop: 07/29/20 21:19 Last Admin: 07/29/20 21:24 Dose: 10 mg Documented by: Diazepam (Valium) 5 mg IVPUSH ONETIME ONE Stop: 07/29/20 22:41 Last Admin: 07/29/20 22:46 Dose: 5 mg Documented by: Sodium Chloride (Normal Saline) 1,000 mls @ 125 mls/hr IV ASDIRECTED [facility] Last Admin: 07/30/20 01:23 Dose: 125 mls/hr Documented by: Influenza Virus Vaccine (Pharmacy To Dose - Influenza Vaccine) 1 each IM ONETIME ONE Stop: 07/31/20 09:01 Influenza Virus Vaccine (Fluzone Quad Syringe) 60 mcg IM .ONCE ONE Stop: 07/31/20 09:01 Last Admin: 07/31/20 09:50 Dose: 60 mcg Documented by: Insulin Glargine (Lantus Solostar) 24 units SUBCUT BEDTIME [facility] Last Admin: 07/30/20 21:21 Dose: 24 units Documented by: Insulin Glargine (Lantus Solostar) 30 units SUBCUT BEDTIME [facility] Last Admin: 07/31/20 21:35 Dose: 30 units Documented by: Insulin Glargine (Lantus Solostar) 35 units SUBCUT BEDTIME [facility] Insulin Human Lispro (Humalog) 0 unit SUBCUT QIDACANDBED [facility]; Protocol Last Admin: 07/30/20 11:51 Dose: Not Given Documented by: Insulin Human Lispro (Humalog) 12 unit SUBCUT ONETIME ONE Stop: 07/30/20 11:51 Last Admin: 07/30/20 12:02 Dose: 12 units Documented by: Insulin Human Lispro (Humalog) 0 unit SUBCUT QIDACANDBED [facility]; Protocol Last Admin: 07/31/20 11:50 Dose: 6 units Documented by: Insulin Human Lispro (Humalog) 0 unit SUBCUT QIDACANDBED [facility]; Protocol Last Admin: 08/01/20 07:29 Dose: 3 units Documented by: Insulin Human Regular (Humulin R) 15 unit SUBCUT ONETIME ONE Stop: 07/29/20 22:23 Last Admin: 07/29/20 22:47 Dose: 15 units Documented by: Lorazepam (Ativan) 0.5 - 1 mg IVPUSH Q4H PRN PRN Reason: Anxiety Last Admin: 07/30/20 01:30 Dose: 1 mg Documented by: Morphine Sulfate (Morphine) 4 mg IVPUSH Q4H PRN PRN Reason: Pain (moderate 4-6) Last Admin: 07/29/20 19:09 Dose: 4 mg Documented by: Morphine Sulfate (Morphine) 4 mg IVPUSH ONETIME ONE Stop: 07/29/20 19:55 Last Admin: 07/29/20 20:00 Dose: 4 mg Documented by: Morphine Sulfate (Morphine) 2 mg IVPUSH Q2H PRN PRN Reason: Pain (severe 7-10) Last Admin: 07/30/20 12:05 Dose: 2 mg Documented by: Pantoprazole Sodium (Protonix Iv) 40 mg IV ACBREAKFAST [facility] Last Admin: 07/30/20 08:04 Dose: 40 mg Documented by: Sodium Chloride (Saline Flush) 10 ml FLUSH ASDIRECTED PRN PRN Reason: Keep Vein Open Last Admin: 07/29/20 19:14 Dose: 10 ml Documented by: - Exam Quality Assessment: No: Supplemental Oxygen General: Alert, Oriented, Cooperative, Mild Distress Lungs: Normal Respiratory Effort GI/Abdominal Exam: Soft, No Distention Extremities: No Pedal Edema Skin: Warm, Dry Psy/Mental Status: Alert, Normal Affect Sepsis Event Note - Evaluation Sepsis Screening Result: No Definite Risk - Focused Exam Vital Signs: Vital Signs Temp Temp Temp Pulse Resp BP Pulse Ox 08/01/20 11:10 36.1 C 79 16 100/60 90 L 08/01/20 07:18 96/60 08/01/20 07:06 36.4 C 68 16 83/40 L 92 L 08/01/20 04:48 37.3 C 08/01/20 04:32 37.3 C 08/01/20 04:00 08/01/20 02:58 37.6 C 79 14 102/57 L 95 Pulse Ox 08/01/20 11:10 08/01/20 07:18 08/01/20 07:06 08/01/20 04:48 08/01/20 04:32 08/01/20 04:00 94 L 08/01/20 02:58 - Problem List Review Problem List Initiated/Reviewed/Updated: Yes - My Orders Last 24 Hours: My Active Orders 07/31/20 11:52 tiZANidine [Zanaflex] 2 mg PO Q6H PRN 07/31/20 17:00 Peripheral IV Discontinue [OM.PC] Routine 08/01/20 08:21 Up With Assistance [RC] ASDIRECTED 08/01/20 11:00 Insulin Lispro [HumaLOG] See Protocol SUBCUT QIDACANDBED 08/01/20 21:00 Insulin Glarg,Human.Rec.Analog [LantUS Solostar] 40 units SUBCUT BEDTIME 08/02/20 01:15 Insert Sam Catheter [Insert Urinary Catheter] [OM.PC] Q24H - Plan Plan:: ASSESSMENT AND PLAN OF CARE PELVIC FRACTURE-secondary to fall at home. Reviewed by orthopedic surgery, no surgical indication. Pain is seems to be slowly improving but she is not moving well as of yet. -Conservative management -pain control -Physical Therapy consult -Occupational Therapy consult -Pressure reduction mattress DIABETES TYPE 2, poorly controlled- A1c significantly elevated at 14. Blood sugar level has been improving. -Increase Lantus to 40 units at bedtime -Continue metformin 500 mg p.o. twice daily -Saline lock IV -Insulin short acting high dose sliding scale coverage -Blood glucose testing before meals and at bedtime Maintenance issues -Nutrition: consistent carb diet -DVT: Enoxaparin 40 mg subcu daily -GI; IV Protonix 40mg daily Disposition: Will require [facility] placement for acute rehab [facility] [place]. Dominic Benjamin MD
[2020-08-01] MEDS: Enoxaparin 40 MG/0.4 ML Syringe SUBCUT SCH (14:30)
[2020-08-01] MEDS ORDERED: Insulin Glargine,Human Rec. Analog 100 Units/ML 3 ML Pen SUBCUT SCH ×2 (21:00)
[2020-08-01] MEDS: Amitriptyline 10 MG Tab PO SCH (21:44)
[2020-08-01] MEDS: DULoxetine 30 MG Cap PO SCH (21:44)
[2020-08-02] MEDS: oxyCODONE 5 MG Tab PO PRN ×6 (01:21→21:02)
[2020-08-02] MEDS: metFORMIN 500 MG Tab PO SCH ×2 (07:36→17:56)
[2020-08-02] MEDS: Pantoprazole 40 MG Tab.CR PO SCH (07:36)
[2020-08-02] MEDS: Ketorolac 30 MG/ML SDV IVPUSH PRN (08:37)
[2020-08-02] MEDS: Insulin Lispro 100 Unit/ML 3 ML KwikPen SUBCUT SCH ×4 (09:03→21:07)
[2020-08-02] MEDS: Docusate Sodium 100 MG Cap PO SCH ×2 (09:06→21:03)
--- NOTE | 2020-08-02 12:46 | PCM.PN ---
- General Info Date of Service: 08/02/20 Subjective Update: No acute events overnight. Pain control is steadily improving. She still requires the assist of 1 or 2 people to move but is moving a little better today. No vertigo or nausea today. Appetite improving. No fevers. Overall she is doing well. Functional Status: Reports: Pain Controlled, Tolerating Diet - Patient Data Vitals - Most Recent: Last Vital Signs Temp 37.1 C 08/02/20 11:54 Pulse 83 08/02/20 11:54 Resp 18 08/02/20 11:54 BP 97/61 08/02/20 11:54 Pulse Ox 91 L 08/02/20 11:54 Weight - Most Recent: 96.887 kg I&O - Last 24 Hours: Intake & Output 08/01/20 08/02/20 08/02/20 22:59 06:59 14:59 Intake Total 950 760 Output Total 750 750 Balance 200 -750 760 Lab Results Last 24 Hours: Laboratory Results - last 24 hr 08/01/20 08/01/20 08/02/20 Range/Units 16:30 21:06 07:24 POC Glucose 221 H 232 H 166 H (74-106) MG/DL 08/02/20 Range/Units 11:30 POC Glucose 196 H (74-106) MG/DL Med Orders - Current: Current Medications Acetaminophen (Tylenol) 650 mg PO Q4H PRN PRN Reason: Pain Last Admin: 08/01/20 04:18 Dose: 650 mg Documented by: Albuterol (Proventil Neb Soln) 2.5 mg NEB Q4H PRN PRN Reason: Shortness Of Breath/wheezing Amitriptyline HCl (Elavil) 10 mg PO BEDTIME [facility] Last Admin: 08/01/20 21:44 Dose: 10 mg Documented by: Bisacodyl (Dulcolax) 5 mg PO DAILY PRN PRN Reason: Constipation Dextrose/Water (Dextrose 50% In Water) 50 ml IVPUSH ASDIRECTED PRN PRN Reason: Hypoglycemia Docusate Sodium (Colace) 100 mg PO BID [facility] Last Admin: 08/02/20 09:06 Dose: 100 mg Documented by: Duloxetine HCl (Cymbalta) 30 mg PO BEDTIME [facility] Last Admin: 08/01/20 21:44 Dose: 30 mg Documented by: Enoxaparin Sodium (Lovenox) 40 mg SUBCUT Q24H [facility] Last Admin: 08/01/20 14:30 Dose: 40 mg Documented by: Glucagon (Glucagen) 1 mg IM ASDIRECTED PRN PRN Reason: Hypoglycemia Glyburide (Micronase) 5 mg PO BIDMEALS [facility] Last Admin: 08/02/20 07:37 Dose: 5 mg Documented by: Insulin Glargine (Lantus Solostar) 40 units SUBCUT BEDTIME [facility] Last Admin: 08/01/20 21:45 Dose: 40 units Documented by: Insulin Human Lispro (Humalog) 0 unit SUBCUT QIDACANDBED [facility]; Protocol Last Admin: 08/02/20 12:00 Dose: 2 units Documented by: Ketorolac Tromethamine (Toradol) 30 mg IVPUSH Q6H PRN PRN Reason: Pain Stop: 08/04/20 01:04 Last Admin: 08/02/20 08:37 Dose: 30 mg Documented by: Meclizine HCl (Antivert) 25 mg PO Q6H PRN PRN Reason: Dizziness Last Admin: 07/31/20 15:41 Dose: 25 mg Documented by: Metformin HCl (Glucophage) 500 mg PO BIDMEALS [facility] Last Admin: 08/02/20 07:36 Dose: 500 mg Documented by: Ondansetron HCl (Zofran) 4 mg IVPUSH Q6H PRN PRN Reason: Nausea/Vomiting Last Admin: 07/29/20 19:09 Dose: 4 mg Documented by: Ondansetron HCl (Zofran Odt) 4 mg PO Q6H PRN PRN Reason: Nausea able to take PO Last Admin: 07/31/20 15:41 Dose: 4 mg Documented by: Oxycodone HCl (Oxycodone) 10 mg PO Q4H PRN PRN Reason: Pain Last Admin: 08/02/20 09:05 Dose: 10 mg Documented by: Pantoprazole Sodium (Protonix) 40 mg PO ACBREAKFAST [facility] Last Admin: 08/02/20 07:36 Dose: 40 mg Documented by: Tizanidine HCl (Zanaflex) 2 mg PO Q6H PRN PRN Reason: Muscle Spasm Last Admin: 08/01/20 12:41 Dose: 2 mg Documented by: Discontinued Medications Albuterol/Ipratropium (Duoneb 3.0-0.5 Mg/3 Ml) 3 ml NEB QID PRN PRN Reason: Shortness Of Breath/wheezing Cyclobenzaprine HCl (Flexeril) 10 mg PO ONETIME ONE Stop: 07/29/20 21:19 Last Admin: 07/29/20 21:24 Dose: 10 mg Documented by: Diazepam (Valium) 5 mg IVPUSH ONETIME ONE Stop: 07/29/20 22:41 Last Admin: 07/29/20 22:46 Dose: 5 mg Documented by: Sodium Chloride (Normal Saline) 1,000 mls @ 125 mls/hr IV ASDIRECTED [facility] Last Admin: 07/30/20 01:23 Dose: 125 mls/hr Documented by: Influenza Virus Vaccine (Pharmacy To Dose - Influenza Vaccine) 1 each IM ONETIME ONE Stop: 07/31/20 09:01 Influenza Virus Vaccine (Fluzone Quad [id number] Syringe) 60 mcg IM .ONCE ONE Stop: 07/31/20 09:01 Last Admin: 07/31/20 09:50 Dose: 60 mcg Documented by: Insulin Glargine (Lantus Solostar) 24 units SUBCUT BEDTIME [facility] Last Admin: 07/30/20 21:21 Dose: 24 units Documented by: Insulin Glargine (Lantus Solostar) 30 units SUBCUT BEDTIME [facility] Last Admin: 07/31/20 21:35 Dose: 30 units Documented by: Insulin Glargine (Lantus Solostar) 35 units SUBCUT BEDTIME [facility] Insulin Human Lispro (Humalog) 0 unit SUBCUT QIDACANDBED [facility]; Protocol Last Admin: 07/30/20 11:51 Dose: Not Given Documented by: Insulin Human Lispro (Humalog) 12 unit SUBCUT ONETIME ONE Stop: 07/30/20 11:51 Last Admin: 07/30/20 12:02 Dose: 12 units Documented by: Insulin Human Lispro (Humalog) 0 unit SUBCUT QIDACANDBED [facility]; Protocol Last Admin: 07/31/20 11:50 Dose: 6 units Documented by: Insulin Human Lispro (Humalog) 0 unit SUBCUT QIDACANDBED [facility]; Protocol Last Admin: 08/01/20 07:29 Dose: 3 units Documented by: Insulin Human Regular (Humulin R) 15 unit SUBCUT ONETIME ONE Stop: 07/29/20 22:23 Last Admin: 07/29/20 22:47 Dose: 15 units Documented by: Lorazepam (Ativan) 0.5 - 1 mg IVPUSH Q4H PRN PRN Reason: Anxiety Last Admin: 07/30/20 01:30 Dose: 1 mg Documented by: Morphine Sulfate (Morphine) 4 mg IVPUSH Q4H PRN PRN Reason: Pain (moderate 4-6) Last Admin: 07/29/20 19:09 Dose: 4 mg Documented by: Morphine Sulfate (Morphine) 4 mg IVPUSH ONETIME ONE Stop: 07/29/20 19:55 Last Admin: 07/29/20 20:00 Dose: 4 mg Documented by: Morphine Sulfate (Morphine) 2 mg IVPUSH Q2H PRN PRN Reason: Pain (severe 7-10) Last Admin: 07/30/20 12:05 Dose: 2 mg Documented by: Pantoprazole Sodium (Protonix Iv) 40 mg IV ACBREAKFAST [facility] Last Admin: 07/30/20 08:04 Dose: 40 mg Documented by: Sodium Chloride (Saline Flush) 10 ml FLUSH ASDIRECTED PRN PRN Reason: Keep Vein Open Last Admin: 07/29/20 19:14 Dose: 10 ml Documented by: - Exam Quality Assessment: No: Supplemental Oxygen General: Alert, Oriented, Cooperative, No Acute Distress Lungs: Normal Respiratory Effort Cardiovascular: Regular Rate, Regular Rhythm GI/Abdominal Exam: Soft, No Distention Extremities: No Pedal Edema Skin: Warm, Dry Psy/Mental Status: Alert, Normal Affect Sepsis Event Note - Evaluation Sepsis Screening Result: No Definite Risk - Focused Exam Vital Signs: Vital Signs Temp Pulse Resp BP Pulse Ox 08/02/20 11:54 37.1 C 83 18 97/61 91 L 08/02/20 07:29 37.6 C 79 18 127/59 L 90 L 08/02/20 03:00 36.1 C 75 16 102/50 L 93 L - Problem List Review Problem List Initiated/Reviewed/Updated: Yes - My Orders Last 24 Hours: My Active Orders 08/01/20 21:00 Insulin Glarg,Human.Rec.Analog [LantUS Solostar] 40 units SUBCUT BEDTIME 08/02/20 12:45 DC Sam Catheter [Urinary Catheter Removal] [RC] PER UNIT ROUTINE 08/02/20 17:00 Insulin Lispro [HumaLOG] See Protocol SUBCUT QIDACANDBED 08/02/20 21:00 Insulin Glarg,Human.Rec.Analog [LantUS Solostar] 45 units SUBCUT BEDTIME - Plan Plan:: ASSESSMENT AND PLAN OF CARE PELVIC FRACTURE-secondary to fall at home. Reviewed by orthopedic surgery, no surgical indication. Pain is slowly and steadily improving but still requires a fair amount of assistance and would benefit from subacute rehab. -Nonsurgical management -pain control with acetaminophen, oxycodone and NSAIDs -Physical Therapy consult -Occupational Therapy consult -Pressure reduction mattress DIABETES TYPE 2, poorly controlled- A1c significantly elevated at 14. Blood sugar level has been improving. -Increase Lantus to 45 units at bedtime -Continue metformin and glyburide twice daily -Saline lock IV -Insulin short acting low dose sliding scale coverage -Blood glucose testing before meals and at bedtime Maintenance issues -Nutrition: consistent carb diet -DVT: Enoxaparin 40 mg subcu daily -GI: PPI Disposition: I anticipate discharge to [facility]acute [facility]hab tomorrow if stable overnight Primary care provider: Dr. Nandini Montoya, [facility]. and [facility]. Dominic Benjamin MD
[2020-08-02] MEDS: Enoxaparin 40 MG/0.4 ML Syringe SUBCUT SCH (13:05)
[2020-08-02] MEDS: tiZANidine 2 MG Tab PO PRN ×2 (15:23→21:02)
[2020-08-02] MEDS: Ondansetron 4 MG Tab.DIS PO PRN (19:35)
[2020-08-02] MEDS ORDERED: Insulin Glargine,Human Rec. Analog 100 Units/ML 3 ML Pen SUBCUT SCH (21:00)
[2020-08-02] MEDS: Amitriptyline 10 MG Tab PO SCH (21:03)
[2020-08-02] MEDS: DULoxetine 30 MG Cap PO SCH (21:03)
[2020-08-03] MEDS: Ketorolac 30 MG/ML SDV IVPUSH PRN (07:13)
[2020-08-03] MEDS: oxyCODONE 5 MG Tab PO PRN ×2 (07:16→11:44)
[2020-08-03] MEDS: Insulin Lispro 100 Unit/ML 3 ML KwikPen SUBCUT SCH (08:03)
[2020-08-03] MEDS: metFORMIN 500 MG Tab PO SCH (08:04)
[2020-08-03] MEDS: Pantoprazole 40 MG Tab.CR PO SCH (08:04)
[2020-08-03] MEDS: Docusate Sodium 100 MG Cap PO SCH (08:04)
[2020-08-03] MEDS: tiZANidine 2 MG Tab PO PRN (10:12)
--- NOTE | 2020-08-03 10:25 | PCM.DCSUM1 ---
Discharge Summary - Hospital Course Brief History: 60-year-old female with obesity and poorly controlled diabetes mellitus type 2 who presented with right hip pain after falling at home. She is admitted for management of a pelvic fracture involving the acetabulum as well as poorly controlled diabetes mellitus with a hemoglobin A1c of 14. Diagnosis: Stroke: No - Discharge Data Discharge Date: 08/03/20 Discharge Disposition: DC/Tfer to SNF 03 Event(s) Leading to Patient's *Q: weight bearing as tolerated Condition: Fair - Referral to Home Health Primary Care Physician: PCP None - Discharge Diagnosis/Problem(s) (1) Pelvic fracture SNOMED Code(s): 93837196 ICD Code: S32.9XXA - FRACTURE OF UNSP PARTS OF LUMBOSACRAL SPINE AND PELVIS, INIT Status: Acute Priority: High Qualifiers: Encounter type: initial encounter Pelvic bone location: multiple parts Fracture type: closed Fracture alignment: with stable disruption of pelvic ring Qualified Code(s): S32.810A - Multiple fractures of pelvis with stable disruption of pelvic ring, initial encounter for closed fracture (2) Type 2 diabetes mellitus with hyperglycemia SNOMED Code(s): 739881277602243, 464499096844834 ICD Code: E11.65 - TYPE 2 DIABETES MELLITUS WITH HYPERGLYCEMIA Status: Acute Qualifiers: Diabetes mellitus usp insulin use: with usp use Qualified Code(s): E11.65 - Type 2 diabetes mellitus with hyperglycemia; Z79.4 - long term (current) use of insulin - Patient Summary/Data Consults: Consultations 07/30/20 00:23 OT Evaluation and Treatment [CONS] Routine Please Evaluate and Treat. OT Reason for Consult: Discharge Planning Special Instructions: pelvis fracture This query below is only for informational purposes and is not editable. PT Evaluation and Treatment [CONS] Routine Please Evaluate and Treat. PT Reason for Consult: Ambulation Special Instructions: pelvis fracture This query below is only for informational purposes and is not editable. Hospital Course: Dedra presented to the emergency room with right hip pain after tripping and falling getting out of the car. Work-up in the emergency room revealed evidence for a right-sided pelvic fracture involving the acetabulum. Orthopedic surgery was consulted and they felt that this was a nonsurgical fracture. She was also noted to have a hemoglobin A1c greater than 14 with significant hyperglycemia noted on baseline laboratory studies. The patient was admitted to the hospital for pain management as well as management of her poorly controlled type 2 diabetes. Regarding the hip fracture, she was started on pain control with a combination of oxycodone as well as Toradol and acetaminophen. Physical therapy was consulted. For the poorly controlled diabetes she was started on insulin in addition to her glyburide and Metformin. Over the next couple of days we did see slow but steady improvement in her right hip pain and mobility. We did see steady improvements in her blood sugars with increasing doses of the long- acting insulin that was initiated at the time of admission. Throughout the hospital stay we did see significant improvement in pain control utilizing mostly oxycodone and a muscle relaxer to help with some leg spasms. We have settled on a bedtime dose of 45 units with her Lantus. She is also on the Metformin and glyburide. She is feeling a fair amount better but still quite limited with her ambulation because of the severity of her right hip pain. I think she would benefit from subacute rehab as she continues to recover from her pelvis fracture. She was interested in subacute rehab. She is stable and safe for discharge to the correction at this time for ongoing rehab. We will continue the oxycodone, acetaminophen and muscle relaxer for pain control. She will be working with physical and Occupational Therapy. - Patient Instructions Diet: Diabetic Diet Activity: As Tolerated Activity, Other: weight bearing as tolerated Showering/Bathing: May Shower Notify Provider of: Fever, Increased Pain Other/Special Instructions: 1. You were in the hospital for management of a pelvic fracture caused by a fall. Your condition has been improving with pain control and physical therapy. You may bear weight on both legs as tolerated. Our current pain control regimen consists of scheduled acetaminophen and as needed oxycodone as well as a muscle relaxer that you can use as needed. 2. Your diabetes has not been well controlled. We have initiated a long-acting ins ulin called Lantus. This has provided improved control of your diabetes. I recommend that you continue to take the Metformin, glyburide as well as the Lantus. We may need to make some minor adjustments to the dose of the Lantus so we will be checking your blood sugars 4 times daily while you are in the correction. I did provide prescriptions for a glucometer as well as insulin testing supplies that you can fill after your discharge from the correction. 3. Code status - FULL CODE. 4. Referral to PT and OT for strengthening after a fall that resulted in a pelvic fracture. - Discharge Plan *PRESCRIPTION DRUG MONITORING PROGRAM REVIEWED*: Not Applicable *COPY OF PRESCRIPTION DRUG MONITORING REPORT IN PATIENT KAEL: Not Applicable Prescriptions/Med Rec: Acetaminophen [Acetaminophen Extra Strength] 1,000 mg PO TID #200 tablet Insulin Glarg,Human.Rec.Analog [Lantus Solostar] 45 units SUBCUT BEDTIME #5 pen oxyCODONE HCl [Oxycodone HCl] 10 mg PO Q4H PRN #100 tablet PRN Reason: Pain tiZANidine [Zanaflex] 2 mg PO Q6H PRN #40 tablet PRN Reason: Muscle Spasm Home Medications: Home Meds Amitriptyline [Elavil] 10 mg PO BEDTIME 07/29/20 [History] DULoxetine [Cymbalta] 30 mg PO BEDTIME 07/29/20 [History] Meclizine [Antivert] 25 mg PO Q6H PRN 07/29/20 [History] glyBURIDE [Glyburide] 5 mg PO BID 07/29/20 [History] metFORMIN [Glucophage] 1,000 mg PO BIDMEALS 07/29/20 [History] Acetaminophen [Acetaminophen Extra Strength] 1,000 mg PO TID #200 tablet 08/03/20 [Rx] Insulin Glarg,Human.Rec.Analog [Lantus Solostar] 45 units SUBCUT BEDTIME #5 pen 08/03/20 [Rx] oxyCODONE HCl [Oxycodone HCl] 10 mg PO Q4H PRN #100 tablet 08/03/20 [Rx] tiZANidine [Zanaflex] 2 mg PO Q6H PRN #40 tablet 08/03/20 [Rx] Oxygen Therapy Mode: Room Air Patient Handouts: Oxycodone tablets or capsules, Simple Pelvic Fracture, Adult Referrals: PCP,None [Primary Care Provider] - (f/u as needed with your primary care after your NH stay ) - Discharge Summary/Plan Comment DC Time >30 min.: Yes (45-new correction discharge) - Patient Data Vitals - Most Recent: Last Vital Signs Temp 36.8 C 08/03/20 08:05 Pulse 80 08/03/20 07:14 Resp 20 08/03/20 07:14 BP 108/47 L 08/03/20 07:14 Pulse Ox 92 L 08/03/20 07:14 Weight - Most Recent: 96.887 kg I&O - Last 24 hours: Intake & Output 08/02/20 08/03/20 08/03/20 22:59 06:59 14:59 Intake Total 280 600 Output Total 700 300 Balance -700 280 300 Lab Results - Last 24 hrs: Laboratory Results - last 24 hr 08/02/20 08/02/20 08/02/20 Range/Units 11:30 16:30 21:00 POC Glucose 196 H 203 H 193 H (74-106) MG/DL 08/03/20 Range/Units 07:30 POC Glucose 125 H (74-106) MG/DL Med Orders - Current: Current Medications Acetaminophen (Tylenol) 650 mg PO Q4H PRN PRN Reason: Pain Last Admin: 08/01/20 04:18 Dose: 650 mg Documented by: Albuterol (Proventil Neb Soln) 2.5 mg NEB Q4H PRN PRN Reason: Shortness Of Breath/wheezing Amitriptyline HCl (Elavil) 10 mg PO BEDTIME [facility] Last Admin: 08/02/20 21:03 Dose: 10 mg Documented by: Bisacodyl (Dulcolax) 5 mg PO DAILY PRN PRN Reason: Constipation Dextrose/Water (Dextrose 50% In Water) 50 ml IVPUSH ASDIRECTED PRN PRN Reason: Hypoglycemia Docusate Sodium (Colace) 100 mg PO BID [facility] Last Admin: 08/03/20 08:04 Dose: 100 mg Documented by: Duloxetine HCl (Cymbalta) 30 mg PO BEDTIME [facility] Last Admin: 08/02/20 21:03 Dose: 30 mg Documented by: Enoxaparin Sodium (Lovenox) 40 mg SUBCUT Q24H [facility] Last Admin: 08/02/20 13:05 Dose: 40 mg Documented by: Glucagon (Glucagen) 1 mg IM ASDIRECTED PRN PRN Reason: Hypoglycemia Glyburide (Micronase) 5 mg PO BIDMEALS [facility] Last Admin: 08/03/20 08:04 Dose: 5 mg Documented by: Insulin Glargine (Lantus Solostar) 45 units SUBCUT BEDTIME [facility] Last Admin: 08/02/20 21:08 Dose: 45 units Documented by: Insulin Human Lispro (Humalog) 0 unit SUBCUT QIDACANDBED [facility]; Protocol Last Admin: 08/03/20 08:03 Dose: Not Given Documented by: Ketorolac Tromethamine (Toradol) 30 mg IVPUSH Q6H PRN PRN Reason: Pain Stop: 08/04/20 01:04 Last Admin: 08/03/20 07:13 Dose: 30 mg Documented by: Meclizine HCl (Antivert) 25 mg PO Q6H PRN PRN Reason: Dizziness Last Admin: 07/31/20 15:41 Dose: 25 mg Documented by: Metformin HCl (Glucophage) 500 mg PO BIDMEALS [facility] Last Admin: 08/03/20 08:04 Dose: 500 mg Documented by: Ondansetron HCl (Zofran) 4 mg IVPUSH Q6H PRN PRN Reason: Nausea/Vomiting Last Admin: 07/29/20 19:09 Dose: 4 mg Documented by: Ondansetron HCl (Zofran Odt) 4 mg PO Q6H PRN PRN Reason: Nausea able to take PO Last Admin: 08/02/20 19:35 Dose: 4 mg Documented by: Oxycodone HCl (Oxycodone) 10 mg PO Q4H PRN PRN Reason: Pain Last Admin: 08/03/20 07:16 Dose: 10 mg Documented by: Pantoprazole Sodium (Protonix) 40 mg PO ACBREAKFAST [facility] Last Admin: 08/03/20 08:04 Dose: 40 mg Documented by: Tizanidine HCl (Zanaflex) 2 mg PO Q6H PRN PRN Reason: Muscle Spasm Last Admin: 08/03/20 10:12 Dose: 2 mg Documented by: Discontinued Medications Albuterol/Ipratropium (Duoneb 3.0-0.5 Mg/3 Ml) 3 ml NEB QID PRN PRN Reason: Shortness Of Breath/wheezing Cyclobenzaprine HCl (Flexeril) 10 mg PO ONETIME ONE Stop: 07/29/20 21:19 Last Admin: 07/29/20 21:24 Dose: 10 mg Documented by: Diazepam (Valium) 5 mg IVPUSH ONETIME ONE Stop: 07/29/20 22:41 Last Admin: 07/29/20 22:46 Dose: 5 mg Documented by: Sodium Chloride (Normal Saline) 1,000 mls @ 125 mls/hr IV ASDIRECTED [facility] Last Admin: 07/30/20 01:23 Dose: 125 mls/hr Documented by: Influenza Virus Vaccine (Pharmacy To Dose - Influenza Vaccine) 1 each IM ONETIME ONE Stop: 07/31/20 09:01 Influenza Virus Vaccine (Fluzone Quad [id number] Syringe) 60 mcg IM .ONCE ONE Stop: 07/31/20 09:01 Last Admin: 07/31/20 09:50 Dose: 60 mcg Documented by: Insulin Glargine (Lantus Solostar) 24 units SUBCUT BEDTIME [facility] Last Admin: 07/30/20 21:21 Dose: 24 units Documented by: Insulin Glargine (Lantus Solostar) 30 units SUBCUT BEDTIME [facility] Last Admin: 07/31/20 21:35 Dose: 30 units Documented by: Insulin Glargine (Lantus Solostar) 35 units SUBCUT BEDTIME [facility] Insulin Glargine (Lantus Solostar) 40 units SUBCUT BEDTIME [facility] Last Admin: 08/01/20 21:45 Dose: 40 units Documented by: Insulin Human Lispro (Humalog) 0 unit SUBCUT QIDACANDBED [facility]; Protocol Last Admin: 07/30/20 11:51 Dose: Not Given Documented by: Insulin Human Lispro (Humalog) 12 unit SUBCUT ONETIME ONE Stop: 07/30/20 11:51 Last Admin: 07/30/20 12:02 Dose: 12 units Documented by: Insulin Human Lispro (Humalog) 0 unit SUBCUT QIDACANDBED [facility]; Protocol Last Admin: 07/31/20 11:50 Dose: 6 units Documented by: Insulin Human Lispro (Humalog) 0 unit SUBCUT QIDACANDBED [facility]; Protocol Last Admin: 08/01/20 07:29 Dose: 3 units Documented by: Insulin Human Lispro (Humalog) 0 unit SUBCUT QIDACANDBED [facility]; Protocol Last Admin: 08/02/20 12:00 Dose: 2 units Documented by: Insulin Human Regular (Humulin R) 15 unit SUBCUT ONETIME ONE Stop: 07/29/20 22:23 Last Admin: 07/29/20 22:47 Dose: 15 units Documented by: Lorazepam (Ativan) 0.5 - 1 mg IVPUSH Q4H PRN PRN Reason: Anxiety Last Admin: 07/30/20 01:30 Dose: 1 mg Documented by: Morphine Sulfate (Morphine) 4 mg IVPUSH Q4H PRN PRN Reason: Pain (moderate 4-6) Last Admin: 07/29/20 19:09 Dose: 4 mg Documented by: Morphine Sulfate (Morphine) 4 mg IVPUSH ONETIME ONE Stop: 07/29/20 19:55 Last Admin: 07/29/20 20:00 Dose: 4 mg Documented by: Morphine Sulfate (Morphine) 2 mg IVPUSH Q2H PRN PRN Reason: Pain (severe 7-10) Last Admin: 07/30/20 12:05 Dose: 2 mg Documented by: Pantoprazole Sodium (Protonix Iv) 40 mg IV ACBREAKFAST [facility] Last Admin: 07/30/20 08:04 Dose: 40 mg Documented by: Sodium Chloride (Saline Flush) 10 ml FLUSH ASDIRECTED PRN PRN Reason: Keep Vein Open Last Admin: 07/29/20 19:14 Dose: 10 ml Documented by:
== END 2020-08-03 13:17 | DRG 536 ==
LOC: JP.ED 17:53 → JP.MS 23:34
PROVIDERS: ADMIT Hospitalist; ATTEND Internal Medicine
DX: S32.810A Multiple fractures of pelvis with stable disruption of pelvic ring, initial encounter for closed fracture (principal); E11.65 Type 2 diabetes mellitus with hyperglycemia; F41.9 Anxiety disorder, unspecified; J44.9 Chronic obstructive pulmonary disease, unspecified; Z20.828 Contact with and (suspected) exposure to other viral communicable diseases; I10 Essential (primary) hypertension; E78.5 Hyperlipidemia, unspecified; K21.9 Gastro-esophageal reflux disease without esophagitis; Z79.4 Long term (current) use of insulin; Z88.6 Allergy status to analgesic agent; Z88.5 Allergy status to narcotic agent; Z88.0 Allergy status to penicillin; W01.0XXA Fall on same level from slipping, tripping and stumbling without subsequent striking against object, initial encounter; Y92.009 Unspecified place in unspecified non-institutional (private) residence as the place of occurrence of the external cause
CPT/HCPCS: 36415; 51702; 73502-RT; 73700-RT; 80048; 80053; 82962; 83036; 85025; 90686; 94762; 96374; 96375; 96376; 97110-GP; 97161-GP; 97165-GO; 97530-GP; 99285; 99285-25; A9270-GY; C9113; G0008; J1650; J1815; J1815-GY; J1885; J2060; J2270; J2405; J3360; J7030; U0002

== ENCOUNTER 2020-08-06 10:33 | Emergency (ER) | payer MEDICAID ==
[2020-08-06] MEDS ORDERED: Sodium Chloride 0.9% 10 ML Syringe FLUSH PRN (10:37)
--- NOTE | 2020-08-06 10:42 | EDM.PDOC ---
ED HPI GENERAL MEDICAL PROBLEM - General Chief Complaint: Respiratory Problem Stated Complaint: LOW O2, FEVER [facility]ICAL [facility] Time Seen by Provider: 08/06/20 10:39 Source of Information: Reports: Patient, EMS, Old Records History Limitations: Reports: No Limitations - History of Present Illness INITIAL COMMENTS - FREE TEXT/NARRATIVE: 60 yo female convalescing at a local assisted living facility after incurring a pelvic fx. Now has hypoxia, a low grade fever, weakness and anorexia. Was negative for Covid on 07/29/2020 and has a second test pending since then. Oxygen sats in the mid 80's today before oxygen was started. Quit smoking 2 yrs ago after smoking most of her life. Did not feel SOB before being sent to the ER. Has a cough with colored sputum. Onset: Today, Gradual Onset Date: 08/06/20 Duration: Hour(s): Location: Reports: Chest Quality: Reports: Other (no pain) Severity: Moderate Improves with: Reports: None Worsens with: Reports: Other (time) Context: Reports: Other (See HPI) Associated Symptoms: Reports: Cough, Fever/Chills, Loss of Appetite, Malaise. 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: Other (see below) (none) Pelvic Pain Score (Numeric/FACES): 8 - Related Data Allergies Allergy/AdvReac Type Severity Reaction Status Date / Time codeine Allergy Rash Verified 08/06/20 11:13 gabapentin Allergy Confusion Verified 08/06/20 11:13 hydrocodone [From Lortab] Allergy Rash Verified 08/06/20 11:13 Penicillins Allergy Rash Verified 08/06/20 11:13 prochlorperazine Allergy Anxiety Verified 08/06/20 11:13 [From Compazine] Home Meds: Home Meds Amitriptyline [Elavil] 10 mg PO BEDTIME 07/29/20 [History] DULoxetine [Cymbalta] 30 mg PO BEDTIME 07/29/20 [History] Meclizine [Antivert] 25 mg PO Q6H PRN 07/29/20 [History] glyBURIDE [Glyburide] 5 mg PO BID 07/29/20 [History] metFORMIN [Glucophage] 1,000 mg PO BIDMEALS 07/29/20 [History] Acetaminophen [Acetaminophen Extra Strength] 1,000 mg PO TID #200 tablet 08/03/20 [Rx] Insulin Glarg,Human.Rec.Analog [Lantus Solostar] 45 units SUBCUT BEDTIME #5 pen 08/03/20 [Rx] oxyCODONE HCl [Oxycodone HCl] 10 mg PO Q4H PRN #100 tablet 08/03/20 [Rx] tiZANidine [Zanaflex] 2 mg PO Q6H PRN #40 tablet 08/03/20 [Rx] cephALEXin [Cephalexin] 500 mg PO TID #15 capsule 08/06/20 [Rx] diphenhydrAMINE [Benadryl] 25 mg PO Q4H PRN 08/06/20 [History] ondansetron HCL [Zofran] 4 mg PO Q8H PRN 08/06/20 [History] Past Medical History Respiratory History: Reports: Asthma Gastrointestinal History: Reports: GERD [employer]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: Psychiatric History: Reports: Anxiety Endocrine/Metabolic History: Reports: Diabetes, Type II Other Endocrine/Metabolic History: vertigo - Past Surgical History Other Neurological Surgeries/Procedures: 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 Denies: Diaphoresis HEENT: Reports: No Symptoms Respiratory: Reports: Cough, Sputum. Denies: Wheezing, Pleuritic Chest Pain, Hemoptysis Cardiovascular: Reports: No Symptoms Endocrine: Reports: No Symptoms GI/Abdominal: Reports: Decreased Appetite : Reports: No Symptoms Musculoskeletal: Reports: Other (pelvic pain due to recent fx) Skin: Reports: No Symptoms Neurological: Reports: No Symptoms Psychiatric: Reports: No Symptoms ED EXAM, GENERAL - Physical Exam Exam: See Below Exam Limited By: No Limitations General Appearance: Alert, WD/WN, No Apparent Distress Eye Exam: Bilateral Eye: Normal Inspection Ears: Normal External Exam, Normal Canal, Hearing Grossly Normal, Normal TMs Ear Exam: Bilateral Ear: Auricle Normal, Canal Normal, TM normal Nose: Normal Inspection, No Blood Throat/Mouth: Normal Inspection, Normal Lips, Normal Oropharynx, Normal Voice, No Airway Compromise Head: Atraumatic, Normocephalic Neck: Normal Inspection Respiratory/Chest: No Respiratory Distress, Lungs Clear, Normal Breath Sounds, No Accessory Muscle Use Cardiovascular: Regular Rate, Rhythm, No Edema GI/Abdominal: Normal Bowel Sounds, Soft, Non-Tender, No Distention Extremities: Normal Inspection, Normal Range of Motion, Non-Tender, No Pedal Edema Neurological: Alert, Oriented, CN II-XII Intact, Normal Cognition, No Motor/Sensory Deficits Psychiatric: Normal Affect, Normal Mood Course - Vital Signs Last Recorded V/S: Last Vital Signs Temp 38.4 C H 08/06/20 12:45 Pulse 85 08/06/20 12:45 Resp 18 08/06/20 10:58 BP 139/71 08/06/20 12:45 Pulse Ox 91 L 08/06/20 12:45 - Orders/Labs/Meds Orders: Active Orders 24 hr Category Date Time Status Oxygen Therapy Adult [Oxygen Therapy, ED] [RC] Care 08/06/20 10:37 Active ASDIRECTED Chest 1V Frontal [CR] Stat Exams 08/06/20 10:37 Taken CULTURE URINE [RM] Stat Lab 08/06/20 13:16 Ordered Sodium Chloride 0.9% [Saline Flush] Med 08/06/20 10:37 Active 10 ml FLUSH ASDIRECTED PRN Saline Lock Insert [OM.PC] Routine Oth 08/06/20 10:37 Ordered Medication Orders Sodium Chloride (Saline Flush) 10 ml FLUSH ASDIRECTED PRN PRN Reason: Keep Vein Open Last Admin: 08/06/20 11:21 Dose: 10 ml Documented by: YVON Labs: Laboratory Tests 08/06/20 08/06/20 08/06/20 Range/Units 10:49 10:55 10:55 WBC 11.3 H (4.5-11.0) K/uL RBC 4.29 (3.30-5.50) M/uL Hgb 11.9 L (12.0-15.0) g/dL Hct 37.0 (36.0-48.0) % MCV 86 (80-98) fL MCH 28 (27-31) pg MCHC 32 (32-36) % Plt Count 352 (150-400) K/uL Sodium 135 L (140-148) mmol/L Potassium 3.8 (3.6-5.2) mmol/L Chloride 96 L (100-108) mmol/L Carbon Dioxide 29 (21-32) mmol/L Anion Gap 13.8 (5.0-14.0) mmol/L BUN 6 L D (7-18) mg/dL Creatinine 0.7 (0.6-1.0) mg/dL Est Cr Clr Drug Dosing TNP Estimated GFR (MDRD) > 60 (>60) Glucose 123 H (74-106) mg/dL Calcium 8.3 L (8.5-10.1) mg/dL Total Bilirubin 1.0 D (0.2-1.0) mg/dL AST 30 (15-37) U/L ALT 32 (12-78) U/L Alkaline Phosphatase 282 H D (46-116) U/L Total Protein 6.5 (6.4-8.2) g/dL Albumin 2.1 L (3.4-5.0) g/dL Globulin 4.4 H (2.3-3.5) g/dL Albumin/Globulin Ratio 0.5 L (1.2-2.2) Urine Color (YELLOW) Urine Appearance (CLEAR) Urine pH (5.0-8.0) Ur Specific [place] (1.008-1.030) Urine Protein (NEGATIVE) mg/dL Urine Glucose (UA) (NEGATIVE) mg/dL Urine Ketones (NEGATIVE) mg/dL Urine Occult Blood (NEGATIVE) Urine Nitrite (NEGATIVE) Urine Bilirubin (NEGATIVE) Urine Urobilinogen (0.2-1.0) EU/dL Ur Leukocyte Esterase (NEGATIVE) Urine RBC (0-5) Urine WBC (0-5) Ur Epithelial Cells Amorphous Sediment Urine Bacteria Urine Mucus SARS CoV-2 RNA Rapid JUNG Negative 08/06/20 Range/Units 12:41 WBC (4.5-11.0) K/uL RBC (3.30-5.50) M/uL Hgb (12.0-15.0) g/dL Hct (36.0-48.0) % MCV (80-98) fL MCH (27-31) pg MCHC (32-36) % Plt Count (150-400) K/uL Sodium (140-148) mmol/L Potassium (3.6-5.2) mmol/L Chloride (100-108) mmol/L Carbon Dioxide (21-32) mmol/L Anion Gap (5.0-14.0) mmol/L BUN (7-18) mg/dL Creatinine (0.6-1.0) mg/dL Est Cr Clr Drug Dosing Estimated GFR (MDRD) (>60) Glucose (74-106) mg/dL Calcium (8.5-10.1) mg/dL Total Bilirubin (0.2-1.0) mg/dL AST (15-37) U/L ALT (12-78) U/L Alkaline Phosphatase (46-116) U/L Total Protein (6.4-8.2) g/dL Albumin (3.4-5.0) g/dL Globulin (2.3-3.5) g/dL Albumin/Globulin Ratio (1.2-2.2) Urine Color Yellow (YELLOW) Urine Appearance Cloudy A (CLEAR) Urine pH 5.5 (5.0-8.0) Ur Specific [place] 1.025 (1.008-1.030) Urine Protein 30 H (NEGATIVE) mg/dL Urine Glucose (UA) Negative (NEGATIVE) mg/dL Urine Ketones Negative (NEGATIVE) mg/dL Urine Occult Blood Small H (NEGATIVE) Urine Nitrite Negative (NEGATIVE) Urine Bilirubin Small H (NEGATIVE) Urine Urobilinogen >=8.0 H (0.2-1.0) EU/dL Ur Leukocyte Esterase Small H (NEGATIVE) Urine RBC 5-10 H (0-5) Urine WBC Packed H (0-5) Ur Epithelial Cells Not seen Amorphous Sediment Not seen Urine Bacteria Many Urine Mucus Not seen SARS CoV-2 RNA Rapid JUNG Meds: Medications Generic Name Dose Route Start Last Admin Trade Name Freq PRN Reason Stop Dose Admin Sodium Chloride 10 ml 08/06/20 10:37 08/06/20 11:21 Saline Flush FLUSH 10 ml ASDIRECTED PRN Administration Keep Vein Open Discontinued Medications Generic Name Dose Route Start Last Admin Trade Name Freq PRN Reason Stop Dose Admin Ceftriaxone Sodium 1 gm 08/06/20 13:17 Rocephin IM 08/06/20 13:18 ONETIME ONE Ibuprofen 400 mg 08/06/20 11:10 08/06/20 12:01 Motrin PO 08/06/20 11:11 400 mg ONETIME ONE Administration - Radiology Interpretation Free Text/Narrative:: CXR- Departure - Departure Time of Disposition: 13:40 Disposition: Home, Self-Care 01 Condition: Fair Clinical Impression: UTI (urinary tract infection) Qualifiers: Urinary tract infection type: site unspecified Hematuria presence: without hematuria Qualified Code(s): N39.0 - Urinary tract infection, site not specified - Discharge Information *PRESCRIPTION DRUG MONITORING PROGRAM REVIEWED*: Not Applicable *COPY OF PRESCRIPTION DRUG MONITORING REPORT IN PATIENT KAEL: Not Applicable Prescriptions: cephALEXin [Cephalexin] 500 mg PO TID #15 capsule Referrals: PCP,None [Primary Care Provider] - Forms: ED Department Discharge Additional Instructions: Start cephalexin tomorrow and use as directed. Check with your provider in 3 days regarding your urine culture to see if you need an antibiotic change. Return as needed. Sepsis Event Note (ED) - Focused Exam Vital Signs: Vital Signs Temp Pulse Resp BP Pulse Ox 08/06/20 12:45 38.4 C H 85 139/71 91 L 08/06/20 12:15 76 148/76 H 92 L 08/06/20 11:45 73 143/79 H 91 L 08/06/20 11:16 75 132/71 91 L 08/06/20 10:58 38.0 C 80 18 136/76 92 L - My Orders Last 24 Hours: My Active Orders 08/06/20 10:37 Oxygen Therapy Adult [Oxygen Therapy, ED] [RC] ASDIRECTED Chest 1V Frontal [CR] Stat Sodium Chloride 0.9% [Saline Flush] 10 ml FLUSH ASDIRECTED PRN Saline Lock Insert [OM.PC] Routine 08/06/20 13:16 CULTURE URINE [RM] Stat - Assessment/Plan Last 24 Hours: My Active Orders 08/06/20 10:37 Oxygen Therapy Adult [Oxygen Therapy, ED] [RC] ASDIRECTED Chest 1V Frontal [CR] Stat Sodium Chloride 0.9% [Saline Flush] 10 ml FLUSH ASDIRECTED PRN Saline Lock Insert [OM.PC] Routine 08/06/20 13:16 CULTURE URINE [RM] Stat
[2020-08-06] MEDS ORDERED: Ibuprofen 400 MG Tab PO ONE (11:10)
[2020-08-06] MEDS ORDERED: cefTRIAXone 1 GM Vial IM ONE (13:17)
--- NOTE | 2020-08-07 09:58 | CR ---
CHEST: Portable 08/06/2020 at 11:40 AM CLINICAL HISTORY:Hypoxia COMPARISON:None FINDINGS: There is less than optimal inspiration. There is moderate elevation of the right hemidiaphragm. There is some air under the right hemidiaphragm which is likely within interposed bowel loops. Heart is mildly enlarged. Pulmonary vascular is normal. No infiltrates are seen. IMPRESSION: Moderate elevation of the right hemidiaphragm is likely chronic Air under the right hemidiaphragm is likely interposed bowel loops Mild cardiomegaly
== END 2020-08-06 14:10 ==
LOC: JP.ED 10:33
DX: N39.0 Urinary tract infection, site not specified (principal); E11.9 Type 2 diabetes mellitus without complications; J45.909 Unspecified asthma, uncomplicated; F41.9 Anxiety disorder, unspecified; Z79.4 Long term (current) use of insulin; Z20.828 Contact with and (suspected) exposure to other viral communicable diseases; Z88.5 Allergy status to narcotic agent; Z88.0 Allergy status to penicillin; Z88.8 Allergy status to other drugs, medicaments and biological substances; Z79.899 Other long term (current) drug therapy
CPT/HCPCS: 36415; 71045; 71045-26; 80053; 81001; 85027; 87086; 87088; 87186; 96372; 99283; 99284-25; A9270-GY; J0696; J2001; U0002

== ENCOUNTER 2021-06-18 02:03 | Emergency (ER) | payer MEDICAID ==
[2021-06-18] MEDS ORDERED: HYDROmorphone 0.5 MG/0.5 ML Syringe IVPUSH ONE ×2 (02:26→03:52)
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
[2021-06-18] MEDS ORDERED: Sodium Chloride 0.9% 10 ML Syringe FLUSH PRN (02:57)
[2021-06-18] MEDS ORDERED: Sodium Chloride 0.9% 1,000 ML IV SCH (03:00)
[2021-06-18] MEDS ORDERED: Methocarbamol 500 MG Tab PO ONE (04:52)
--- NOTE | 2021-06-18 10:33 | CR ---
Hip Min 2V or 3V w Pelvis Rt CLINICAL HISTORY: Pain FINDINGS: There is a comminuted displaced intertrochanteric fracture of the right femur. There is abduction of the proximal aspect IMPRESSION: Displaced intertrochanteric fracture right femur
== END 2021-06-18 05:05 ==
LOC: JP.ED 02:03
DX: S72.141A Displaced intertrochanteric fracture of right femur, initial encounter for closed fracture (principal); E11.65 Type 2 diabetes mellitus with hyperglycemia; E11.40 Type 2 diabetes mellitus with diabetic neuropathy, unspecified; E11.21 Type 2 diabetes mellitus with diabetic nephropathy; Z88.5 Allergy status to narcotic agent; Z72.0 Tobacco use; Z88.0 Allergy status to penicillin; Z88.6 Allergy status to analgesic agent; Z79.84 Long term (current) use of oral hypoglycemic drugs; Y04.8XXA Assault by other bodily force, initial encounter; Y93.01 Activity, walking, marching and hiking; Y92.008 Other place in unspecified non-institutional (private) residence as the place of occurrence of the external cause; Z20.822 Contact with and (suspected) exposure to COVID-19
CPT/HCPCS: 73502; 87635; 96374; 96376; 99285; A9270; J1170; J7030; U0002

== ENCOUNTER 2021-07-05 10:58 | Inpatient (IN) | payer MEDICAID ==
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
[2021-07-05] MEDS: oxyCODONE 5 MG Tab PO PRN ×2 (12:49→18:51)
[2021-07-05] MEDS ORDERED: Dimethicone 20%/Zinc Oxide 25% 56 GM Spray Bottle TOP PRN (13:23)
[2021-07-05] MEDS: fentaNYL 100 MCG/2 ML SDV IVPUSH PRN ×2 (14:34→18:52)
[2021-07-05] MEDS ORDERED: oxyCODONE 5 MG Tab PO PRN (15:50)
[2021-07-05] MEDS ORDERED: Non-Formulary Medication 1 Each (Omeprazole [Omeprazole] 20 MG Capsule.Dr) PO SCH (16:00)
[2021-07-05] MEDS: Ferrous Sulfate 325 MG Tab PO SCH (16:24)
[2021-07-05] MEDS: GLYBURIDE 5 MG PO SCH ×2 (16:24→21:37)
[2021-07-05] MEDS ORDERED: Non-Formulary Medication 1 Each (Metformin [Glucophage] 1,000 MG Tablet) PO SCH (17:00)
[2021-07-05 18:05] LABS: CORONAVIRUS COVID-19 NAA NEGATIVE (NEGATIVE)
--- NOTE | 2021-07-05 19:15 | PCM.HP.2 ---
H&P History of Present Illness - General Date of Service: 07/05/21 Admit Problem/Dx: Admission Diagnosis/Problem Admission Diagnosis/Problem Rehabilitation therapy Source of Information: Patient, EMS Notes Reviewed, Provider, RN History Limitations: Reports: No Limitations - History of Present Illness Initial Comments - Free Text/Narative: chief complaint- right hip and right knee pain copy from ER Note. 61-year-old female presents emergency department today complaint of ongoing pain, she had presented to the emergency department here on May 19 with a intertrochanteric fracture subsequently transferred to [facility] for surgical intervention. After the intervention they were unable to secure a re[facility] facility [facility] [place] [facility] for [facility] care and treatment she stayed in the hospital an additional week and then was discharged home. She has been home for a week unfortunately she has done well she is unable to do any rehab at home has been staying in her recliner most of the time she is currently out of her pain medications. Family members are in today hoping to find some further treatment options or [facility]ent[facility] placement for rehab. Right Hip Pain Score (Numeric/FACES): 7 Onset of Symptoms: Reports: Gradual Symptom Onset Date: 06/18/21 (right hip fracture 05/19/2021) Duration of Symptoms: Reports: Week(s):, Constant Location: Reports: Lower Extremity, Right Quality: Reports: Ache, Sharp Improves with: Reports: Cold Therapy, Medication Worsens with: Reports: Movement Context: Reports: Other (right hip orif, right knee fracture immobilizer) Associated Symptoms: Reports: Malaise, Weakness Right Hip Pain Score (Numeric/FACES): 7 - Related Data Allergies/Adverse Reactions: Allergies Allergy/AdvReac Type Severity Reaction Status Date / Time acetaminophen Allergy Airway Verified 07/05/21 11:14 Tightness codeine Allergy Rash Verified 07/05/21 11:14 gabapentin Allergy Confusion Verified 07/05/21 11:14 hydrocodone [From Lortab] Allergy Rash Verified 07/05/21 11:14 Penicillins Allergy Rash Verified 07/05/21 11:14 prochlorperazine Allergy Anxiety Verified 07/05/21 11:14 [From Compazine] tramadol [From Ultram] Allergy Airway Verified 07/05/21 11:14 Tightness Home Medications: Home Meds Amitriptyline [Elavil] 10 mg PO BEDTIME 07/29/20 [History] DULoxetine [Cymbalta] 30 mg PO BEDTIME 07/29/20 [History] Meclizine [Antivert] 25 mg PO Q6H PRN 07/29/20 [History] glyBURIDE [Glyburide] 7.5 mg PO BID 07/29/20 [History] metFORMIN [Glucophage] 1,000 mg PO BIDMEALS 07/29/20 [History] diphenhydrAMINE [Benadryl] 25 mg PO Q4H PRN 08/06/20 [History] Ferrous Sulfate [Ferosul] 325 mg PO DAILY 07/05/21 [History] Omeprazole 20 mg PO DAILY 07/05/21 [History] Sennosides/Docusate Sodium [Stool Softener-Laxative] 2 tab PO DAILY PRN 07/05/21 [History] oxyCODONE 5 mg PO Q6H PRN 07/05/21 [History] Past Medical History HEENT History: Reports: Impaired Vision, Other (See Below) Other HEENT History: glasses Respiratory History: Reports: Asthma Gastrointestinal History: Reports: GERD Genitourinary History: Reports: Diabetic Nephropathy 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: Musculoskeletal History: Reports: Fracture Neurological History: Reports: Neuropathy, Diabetic, Vertigo Psychiatric History: Reports: Anxiety Endocrine/Metabolic History: Reports: Diabetes, Type II, Other (See Below) Other Endocrine/Metabolic History: vertigo Dermatologic History: Reports: Cellulitis - Infectious Disease History Infectious Disease History: Reports: Chicken Pox, Measles - Past Surgical History Female Surgical History: Reports: Tubal Ligation Neurological Surgical History: Reports: Other (See Below) Other Neurological Surgeries/Procedures: diabetic nerve pain Musculoskeletal Surgical History: Reports: ORIF, Other (See Below) Other Musculoskeletal Surgeries/Procedures:: right hip orif. Social & Family History - Tobacco Use Tobacco Use Status *Q: Current Every Day Tobacco User Years of Tobacco use: 45 Packs/Tins Daily: 0.2 - Caffeine Use Caffeine Use: Reports: None - Recreational Drug Use Recreational Drug Use: Yes Recreational Drug Type: Reports: Marijuana/Hashish Recreational Drug Use Frequency: Weekly - Living Situation & Occupation Living situation: Reports: with Significant Other, with Family Occupation: Retired (lives with Partner of 27 years, 7 year old nephew, cousin, all in [place], [place].) H&P Review of Systems - Review of Systems: Review Of Systems: See Below General: Reports: Weakness, Decreased Appetite (didnt eat much for the past week because was stuck in a recyliner and did want to get out of chair due to pain), Weight Loss HEENT: Reports: Glasses Pulmonary: Reports: No Symptoms Cardiovascular: Reports: No Symptoms Gastrointestinal: Reports: No Symptoms Genitourinary: Reports: No Symptoms Musculoskeletal: Reports: Back Pain, Leg Pain (s/p orif of right fracture), Joint Pain (right knee fractue) Skin: Reports: Rash, Lesions (low back and coccyx with blister type rash and ski n breakdown), Other (surgerical dressing to the right lateral hip) Psychiatric: Reports: Anxiety Neurological: Reports: Weakness Hematologic/Lymphatic: Reports: No Symptoms Immunologic: Reports: No Symptoms Exam - Exam Exam: See Below - Vital Signs Vital Signs: Last Vital Signs Temp 98.1 F 07/05/21 11:30 Pulse 84 07/05/21 18:03 Resp 14 07/05/21 16:18 BP 102/53 L 07/05/21 18:03 Pulse Ox 96 07/05/21 16:18 Weight: 209 lb - Exam Quality Assessment: DVT Prophylaxis, Skin Breakdown General: Alert, Oriented, Cooperative, Mild Distress HEENT: PERRLA, Hearing Intact, Mucosa Moist & Stamps, Nares Patent, Normal Nasal Septum, Posterior Pharynx Clear, Conjunctiva Clear, EOMI, EACs Clear, TMs Clear Neck: Supple, Trachea Midline, 2 Lungs: Clear to Auscultation, Normal Respiratory Effort Cardiovascular: Regular Rate, Regular Rhythm GI/Abdominal Exam: Normal Bowel Sounds, Soft, Non-Tender, No Organomegaly, No Distention, No Abnormal Bruit, No Mass, Pelvis Stable (Female) Exam: Normal External Exam Rectal (Female) Exam: Normal Exam Back Exam: Normal Inspection, Full Range of Motion, Other (rash and skin breakdown noted to lower back and coccyx) Extremities: No Pedal Edema, Joint Swelling (right knee with mild edema), Limited Range of Motion (recent orif of right hip and right knee fracture) Peripheral Pulses: 2+: Radial (L), Radial (R), Dorsalis Pedis (L), Dorsalis Pedis (R) Skin: Warm, Dry, Rash (lower back and coccyx), Incision (right lateral hek-acw-ksabk-intact), Decubitis (coccyx) Neurological: Normal Speech, Normal Tone Neuro Extensive - Mental Status: Alert, Oriented x3, Normal Mood/Affect, Normal Cognition, Memory Intact Neuro Extensive - Motor, Sensory, Reflexes: Motor/Sensory Deficits Psychiatric: Alert, Normal Affect, Normal Mood, Anxious - Patient Data Lab Results Last 24 hrs: Laboratory Results - last 24 hr 07/05/21 Range/Units 17:24 Influenza Type A RNA Negative (NEGATIVE) RSV RNA (INAAT) Negative (NEGATIVE) Influenza Type B RNA Negative (NEGATIVE) SARS-CoV-2 RNA (JUNG) Negative (NEGATIVE) Sepsis Event Note - Evaluation Sepsis Screening Result: No Definite Risk - Focused Exam Vital Signs: Vital Signs Temp Pulse Resp BP Pulse Ox 07/05/21 18:03 84 102/53 L 07/05/21 16:22 82 109/62 07/05/21 16:18 82 14 109/62 96 07/05/21 14:41 89 128/61 07/05/21 13:36 87 121/64 94 L 07/05/21 11:30 98.1 F 90 16 127/59 L 91 L - Problem List (1) S/P ORIF (open reduction internal fixation) fracture SNOMED Code(s): 275410623 ICD Code: Z98.890 - OTHER SPECIFIED POSTPROCEDURAL STATES; Z87.81 - PERSONAL HISTORY OF (HEALED) TRAUMATIC FRACTURE Status: Acute Priority: High Current Visit: Yes (2) Fracture of right knee region SNOMED Code(s): 716937477, [id number] ICD Code: [id number] - Status: Acute Priority: High Current Visit: Yes (3) Type 2 diabetes mellitus with hyperglycemia, without long-term current use of insulin SNOMED Code(s): 85796159, 74778588 ICD Code: E11.65 - TYPE 2 DIABETES MELLITUS WITH HYPERGLYCEMIA Status: Chronic Priority: High Current Visit: Yes (4) Anxiety SNOMED Code(s): 97334912 ICD Code: F41.9 - ANXIETY DISORDER, UNSPECIFIED Status: Acute Priority: High Current Visit: Yes (5) Tobacco dependence SNOMED Code(s): 01460266 ICD Code: F17.200 - NICOTINE DEPENDENCE, UNSPECIFIED, UNCOMPLICATED Status: Acute Priority: Low Current Visit: Yes Problem List Initiated/Reviewed/Updated: Yes Orders Last 24hrs: Active Orders 24 hr Category Date Time Status Patient Status Manage Transfer [TRANSFER] Routine ADT 07/05/21 18:56 Active Patient Status [ADT] Routine ADT 07/05/21 15:49 Active Up With Assistance [RC] ASDIRECTED Care 07/05/21 15:49 Active Vital Signs [RC] Q4H Care 07/05/21 15:49 Active Consult to Physical Therapy [PT Evaluation and Cons 07/05/21 15:34 Active Treatment] [CONS] Routine OT Evaluation and Treatment [CONS] Routine Cons 07/05/21 15:34 Active Regular Diet [DIET] Diet 07/05/21 Dinner Active CULTURE URINE [RM] Urgent Lab 07/05/21 14:11 Received Amitriptyline [Elavil] Med 07/05/21 21:00 Active 10 mg PO BEDTIME DULoxetine [Cymbalta] Med 07/05/21 21:00 Active 30 mg PO BEDTIME Dimethicone/Zinc Oxide [Rash Relief-Zinc Oxide [place]] Med 07/05/21 13:23 Active 1 gm TOP ASDIRECTED PRN Docusate Sodium/Sennosides [Senna Plus] Med 07/05/21 15:50 Active 2 tab PO DAILY PRN Ferrous Sulfate Med 07/05/21 16:00 Active 325 mg PO DAILY Meclizine [Antivert] Med 07/05/21 15:50 Active 25 mg PO Q6H PRN Omeprazole [Omeprazole] Med 07/05/21 16:00 Active 20 mg PO DAILY diphenhydrAMINE [Benadryl] Med 07/05/21 15:50 Active 25 mg PO Q4H PRN fentaNYL [Sublimaze] Med 07/05/21 14:27 Active 50 mcg IVPUSH Q4H PRN glyBURIDE [Glyburide] Med 07/05/21 16:00 Active 7.5 mg PO BID metFORMIN [Glucophage] Med 07/05/21 17:00 Active 1,000 mg PO BIDMEALS oxyCODONE Med 07/05/21 12:40 Active 5 mg PO Q6H PRN oxyCODONE Med 07/05/21 15:50 Active 5 mg PO Q6H PRN Isolation [COMM] Stat Oth 07/05/21 17:15 Ordered Pressure Reduction Mattress [OM.PC] Routine Oth 07/05/21 19:08 Ordered Resuscitation Status Routine Resus Stat 07/05/21 15:49 Ordered Medication Orders Amitriptyline HCl (Amitriptyline 10 Mg Tab) 10 mg PO BEDTIME [facility] Dimethicone/Zinc Oxide (Dimethicone 20%/Zinc Oxide 25% 56 Gm [place] Bottle) 1 gm TOP ASDIRECTED PRN PRN Reason: Rash Last Admin: 07/05/21 14:34 Dose: 1 applic Documented by: YVON Diphenhydramine HCl (Diphenhydramine 25 Mg Cap) 25 mg PO Q4H PRN PRN Reason: Itching Duloxetine HCl (Duloxetine 30 Mg Cap) 30 mg PO BEDTIME [facility] Fentanyl (Fentanyl 100 Mcg/2 Ml Sdv) 50 mcg IVPUSH Q4H PRN PRN Reason: Pain (severe 7-10) Last Admin: 07/05/21 18:52 Dose: 50 mcg Documented by: Admin: 07/05/21 14:34 Dose: 50 mcg Documented by: YVON Ferrous Sulfate (Ferrous Sulfate 325 Mg Tab) 325 mg PO DAILY [facility] Last Admin: 07/05/21 16:24 Dose: 325 mg Documented by: YVON Meclizine HCl (Meclizine 25 Mg Tab) 25 mg PO Q6H PRN PRN Reason: Dizziness Non-Formulary Medication (Glyburide [Glyburide]) 7.5 mg PO BID [facility] Last Admin: 07/05/21 16:24 Dose: 7.5 mg Documented by: YVON Non-Formulary Medication (Metformin [Glucophage]) 1,000 mg PO BIDMEALS [facility] Last Admin: 07/05/21 16:24 Dose: 1,000 mg Documented by: YVON Non-Formulary Medication (Omeprazole [Omeprazole]) 20 mg PO DAILY [facility] Last Admin: 07/05/21 16:24 Dose: 20 mg Documented by: YVON Oxycodone HCl (Oxycodone 5 Mg Tab) 5 mg PO Q6H PRN PRN Reason: Pain Last Admin: 07/05/21 18:51 Dose: 5 mg Documented by: Admin: 07/05/21 12:49 Dose: 5 mg Documented by: YVON Oxycodone HCl (Oxycodone 5 Mg Tab) 5 mg PO Q6H PRN PRN Reason: Pain Senna/Docusate Sodium (Docusate Sodium/Sennosides 50-8.6 Mg Tab) 2 tab PO DAILY PRN PRN Reason: Constipation Assessment/Plan Comment:: Assessment/Plan Comment:: S/P ORIF RIGHT HIP FRACTURE , FRACTURE RIGHT KNEE, DIABETES TYPE 2, ANXIETY DISORDER, TOBACCO S/P ORIF RIGHT HIP FRACTURE ON 05/19/2021, RIGHT KNEE FRACTURE 05/19/2021 This is a 61 year old female who unfortunately fracture her right hip and right knee. She had ORIF of right hip at [facility], she stayed in the hospital for one week. She was unable to be admitted to Rehab due to shortage of beds. She went home and sat in her recliner for one week. She did not get out of the recliner due to pain and weakness in the right knee. She ate and drank very little as to not need the bathroom. she was using depends for bladder and bowel. She finally called for Ambulance because could not stand the pain any longer and was out of pain medications. -Admit to [address] [place] [address] for further monitoring -IV Fluids for rehydration NS at 125 ml/hr -oxygen to keep sats greater than 95% -vaccinated for Covid 19, one hour Covid 19 virus test in ER is negative -consult to PT -consult to OT -urine sample pending -And a.m. labs: CBC, CMP, Mg+ Diabetes type 2- reports blood glucose have been in the mid 200's. -POC blood glucose testing before meals -Sliding scale insulin - low dose -continue Metformin and Glyburide Tobacco dependence - smokes two cigarettes at night for the past 45 years- no interest in quitting. -declines gum or patch -encouraged to quit smoking Anxiety -continue outpatient medications Maintenance issues -Orders home meds: chronic medication -Nutrition: consistent carb diet -Sam catheter -not indicated at this time -DVT - Lovenox 30 mg subcut daily -PPI - Protonix 40mg po daily CODE STATUS: FULL Admission status: Admit to [address] [place] [address] Admission justification. This patient will be admitted for inpatient services and is medically appropriate meeting medical necessity for inpatient admission as outlined in my documentation. I reasonably expect the patient will require inpatient services that span. Time over 2 midnights. I reasonably expect this patient to be discharged or transferred within 96 hours after admission to the critical access hospital hospital. Disposition: home or extended care facility Primary care provider: Dr. Nandini Montoya, [facility] Hospitalist: Dr. Benjamin - Mortality Measure Prognosis:: Good - Mortality Measure Prognosis:: Good
[2021-07-05] MEDS ORDERED: LORazepam 2 MG/ML SDV IV PRN (19:51)
[2021-07-05] MEDS ORDERED: Albuterol/Ipratropium 3.0-0.5 MG/3 ML Neb Soln NEB PRN (19:51)
[2021-07-05] MEDS ORDERED: Bisacodyl 5 MG Tab PO PRN (19:51)
[2021-07-05] MEDS ORDERED: Albuterol 0.083% 2.5 MG/3 ML Neb Soln NEB PRN (19:51)
[2021-07-05] MEDS: Sodium Chloride 0.9% 1,000 ML IV SCH (20:05)
[2021-07-05] MEDS: DULoxetine 30 MG Cap PO SCH (20:15)
[2021-07-05] MEDS: Amitriptyline 10 MG Tab PO SCH (20:15)
[2021-07-05] MEDS: Docusate Sodium 100 MG Cap PO SCH ×2 (20:15→20:18)
[2021-07-05] MEDS: cefTRIAXone 1 GM in Sodium Chloride 0.9% 50 ML IV SCH (21:40)
[2021-07-06] MEDS: oxyCODONE 5 MG Tab PO PRN ×4 (01:52→23:38)
[2021-07-06] MEDS: Sodium Chloride 0.9% 1,000 ML IV SCH (04:19)
[2021-07-06] MEDS: Pantoprazole 40 MG Tab.CR PO SCH (07:53)
[2021-07-06] MEDS: metFORMIN 500 MG Tab PO SCH ×2 (07:53→17:45)
[2021-07-06] MEDS: Docusate Sodium 100 MG Cap PO SCH ×2 (08:44→20:26)
[2021-07-06] MEDS: Ferrous Sulfate 325 MG Tab PO SCH (08:44)
[2021-07-06] MEDS: Enoxaparin 40 MG/0.4 ML Syringe SUBCUT SCH (08:45)
[2021-07-06] MEDS ORDERED: Enoxaparin 30 MG/0.3 ML Syringe SUBCUT SCH (09:00)
[2021-07-06] MEDS: Ondansetron 4 MG Tab.DIS PO PRN (09:38)
[2021-07-06] MEDS: fentaNYL 100 MCG/2 ML SDV IVPUSH PRN ×2 (10:43→19:46)
--- NOTE | 2021-07-06 11:31 | PCM.PN ---
- General Info Date of Service: 07/06/21 Subjective Update: No acute events overnight following admission. Patient reports ongoing significant pain in her back, right hip and right knee area. She also has pain in the left chest under her left breast. She is worried she may have a rib fracture in that area from a fall a few weeks ago. The pain has been present but is not going away. She did have a lower blood sugar this morning. She is interested in increasing her pain control regimen and thinks that our current approach is not adequate for good pain control. She does appear uncomfortable. Functional Status: Reports: Tolerating Diet. Denies: Pain Controlled - Review of Systems General: Reports: Weakness Cardiovascular: Reports: Chest Pain Musculoskeletal: Reports: Back Pain, Leg Pain - Patient Data Vitals - Most Recent: Last Vital Signs Temp 36.3 C 07/06/21 11:11 Pulse 94 07/06/21 11:11 Resp 16 07/06/21 11:11 BP 132/61 07/06/21 11:11 Pulse Ox 90 L 07/06/21 11:11 Weight - Most Recent: 92.533 kg I&O - Last 24 Hours: Intake & Output 07/05/21 07/06/21 07/06/21 22:59 06:59 14:59 Intake Total 1050 853 Balance 1050 853 Lab Results Last 24 Hours: Laboratory Results - last 24 hr 07/05/21 07/05/21 07/05/21 Range/Units 17:24 19:51 20:56 WBC (4.5-11.0) K/uL RBC (3.30-5.50) M/uL Hgb (12.0-15.0) g/dL Hct (36.0-48.0) % MCV (80-98) fL MCH (27-31) pg MCHC (32-36) % Plt Count (150-400) K/uL Neut % (Auto) (36-66) % Lymph % (Auto) (24-44) % [place] % (Auto) (2-6) % Eos % (Auto) (2-4) % Baso % (Auto) (0-1) % Sodium (140-148) mmol/L Potassium (3.6-5.2) mmol/L Chloride (100-108) mmol/L Carbon Dioxide (21-32) mmol/L Anion Gap (5.0-14.0) mmol/L BUN (7-18) mg/dL Creatinine (0.6-1.0) mg/dL Est Cr Clr Drug Dosing mL/min Estimated GFR (MDRD) (>60) Glucose (74-106) mg/dL POC Glucose 122 H (74-106) mg/dL Calcium (8.5-10.1) mg/dL Magnesium (1.8-2.4) mg/dL Total Bilirubin (0.2-1.0) mg/dL AST (15-37) U/L ALT (12-78) U/L Alkaline Phosphatase (46-116) U/L Total Protein (6.4-8.2) g/dL Albumin (3.4-5.0) g/dL Globulin (2.3-3.5) g/dL Albumin/Globulin Ratio (1.2-2.2) Urine Color Yellow (YELLOW) Urine Appearance Turbid A (CLEAR) Urine pH 5.5 (5.0-8.0) Ur Specific [place] >= 1.030 (1.008-1.030) Urine Protein 30 H (NEGATIVE) mg/dL Urine Glucose (UA) Negative (NEGATIVE) mg/dL Urine Ketones Negative (NEGATIVE) mg/dL Urine Occult Blood Trace-intact H (NEGATIVE) Urine Nitrite Positive H (NEGATIVE) Urine Bilirubin Negative (NEGATIVE) Urine Urobilinogen 1.0 (0.2-1.0) EU/dL Ur Leukocyte Esterase Small H (NEGATIVE) Urine RBC 5-10 H (0-5) Urine WBC 10-20 H (0-5) Ur Epithelial Cells Few Amorphous Sediment Few Urine Bacteria Many Urine Mucus Few Influenza Type A RNA Negative (NEGATIVE) RSV RNA (INAAT) Negative (NEGATIVE) Influenza Type B RNA Negative (NEGATIVE) SARS-CoV-2 RNA (JUNG) Negative (NEGATIVE) 07/06/21 07/06/21 07/06/21 Range/Units 04:41 04:41 07:17 WBC 13.2 H (4.5-11.0) K/uL RBC 3.22 L (3.30-5.50) M/uL Hgb 8.6 L D (12.0-15.0) g/dL Hct 27.8 L (36.0-48.0) % MCV 86 (80-98) fL MCH 27 (27-31) pg MCHC 31 L (32-36) % Plt Count 709 H (150-400) K/uL Neut % (Auto) 71.4 H (36-66) % Lymph % (Auto) 15.9 L (24-44) % [place] % (Auto) 6.4 H (2-6) % Eos % (Auto) 6.0 H (2-4) % Baso % (Auto) 0.3 (0-1) % Sodium 140 (140-148) mmol/L Potassium 4.1 (3.6-5.2) mmol/L Chloride 103 (100-108) mmol/L Carbon Dioxide 29 (21-32) mmol/L Anion Gap 7.9 (5.0-14.0) mmol/L BUN 13 D (7-18) mg/dL Creatinine 0.5 L (0.6-1.0) mg/dL Est Cr Clr Drug Dosing 107.81 mL/min Estimated GFR (MDRD) > 60 (>60) Glucose 87 (74-106) mg/dL POC Glucose 59 L (74-106) mg/dL Calcium 8.4 L (8.5-10.1) mg/dL Magnesium 1.7 L (1.8-2.4) mg/dL Total Bilirubin 1.0 (0.2-1.0) mg/dL AST 16 (15-37) U/L ALT 16 (12-78) U/L Alkaline Phosphatase 157 H (46-116) U/L Total Protein 5.8 L (6.4-8.2) g/dL Albumin 2.4 L (3.4-5.0) g/dL Globulin 3.4 (2.3-3.5) g/dL Albumin/Globulin Ratio 0.7 L (1.2-2.2) Urine Color (YELLOW) Urine Appearance (CLEAR) Urine pH (5.0-8.0) Ur Specific [place] (1.008-1.030) Urine Protein (NEGATIVE) mg/dL Urine Glucose (UA) (NEGATIVE) mg/dL Urine Ketones (NEGATIVE) mg/dL Urine Occult Blood (NEGATIVE) Urine Nitrite (NEGATIVE) Urine Bilirubin (NEGATIVE) Urine Urobilinogen (0.2-1.0) EU/dL Ur Leukocyte Esterase (NEGATIVE) Urine RBC (0-5) Urine WBC (0-5) Ur Epithelial Cells Amorphous Sediment Urine Bacteria Urine Mucus Influenza Type A RNA (NEGATIVE) RSV RNA (INAAT) (NEGATIVE) Influenza Type B RNA (NEGATIVE) SARS-CoV-2 RNA (JUNG) (NEGATIVE) Jesu Results Last 24 Hours: Microbiology 07/05/21 14:11 Urine Culture - Preliminary Urine, Catheterized Med Orders - Current: Current Medications Albuterol (Albuterol 0.083% 2.5 Mg/3 Ml Neb Soln) 2.5 mg NEB Q4H PRN PRN Reason: Shortness Of Breath/wheezing Amitriptyline HCl (Amitriptyline 10 Mg Tab) 10 mg PO BEDTIME [facility] Last Admin: 07/05/21 20:15 Dose: 10 mg Documented by: Bisacodyl (Bisacodyl 5 Mg Tab) 5 mg PO DAILY PRN PRN Reason: Constipation Dimethicone/Zinc Oxide (Dimethicone 20%/Zinc Oxide 25% 56 Gm [place] Bottle) 1 gm TOP ASDIRECTED PRN PRN Reason: Rash Last Admin: 07/05/21 14:34 Dose: 1 applic Documented by: Diphenhydramine HCl (Diphenhydramine 25 Mg Cap) 25 mg PO Q4H PRN PRN Reason: Itching Docusate Sodium (Docusate Sodium 100 Mg Cap) 100 mg PO BID [facility] Last Admin: 07/06/21 08:44 Dose: 100 mg Documented by: Duloxetine HCl (Duloxetine 30 Mg Cap) 30 mg PO BEDTIME [facility] Last Admin: 07/05/21 20:15 Dose: 30 mg Documented by: Enoxaparin Sodium (Enoxaparin 40 Mg/0.4 Ml Syringe) 40 mg SUBCUT DAILY [facility] Last Admin: 07/06/21 08:45 Dose: 40 mg Documented by: Fentanyl (Fentanyl 100 Mcg/2 Ml Sdv) 50 mcg IVPUSH Q4H PRN PRN Reason: Pain Last Admin: 07/06/21 10:43 Dose: 50 mcg Documented by: Ferrous Sulfate (Ferrous Sulfate 325 Mg Tab) 325 mg PO DAILY [facility] Last Admin: 07/06/21 08:44 Dose: 325 mg Documented by: Glyburide (Glyburide 2.5 Mg Tab) 7.5 mg PO BID [facility] Ceftriaxone Sodium 1 gm/ (Sodium Chloride) 50 mls @ 100 mls/hr IV Q24H [facility] Last Admin: 07/05/21 21:40 Dose: 100 mls/hr Documented by: Lorazepam (Lorazepam 2 Mg/Ml Sdv) 1 mg IV Q6H PRN PRN Reason: Nausea/Vomiting Meclizine HCl (Meclizine 25 Mg Tab) 25 mg PO Q6H PRN PRN Reason: Dizziness Metformin HCl (Metformin 500 Mg Tab) 1,000 mg PO BIDMEALS [facility] Last Admin: 07/06/21 07:53 Dose: 1,000 mg Documented by: Ondansetron HCl (Ondansetron 4 Mg Tab.Dis) 4 mg PO Q6H PRN PRN Reason: Nausea able to take PO Last Admin: 07/06/21 09:38 Dose: 4 mg Documented by: Pantoprazole Sodium (Pantoprazole 40 Mg Tab.Cr) 40 mg PO ACBREAKFAST [facility] Last Admin: 07/06/21 07:53 Dose: 40 mg Documented by: Senna/Docusate Sodium (Docusate Sodium/Sennosides 50-8.6 Mg Tab) 2 tab PO DAILY PRN PRN Reason: Constipation Discontinued Medications Albuterol/Ipratropium (Albuterol/Ipratropium 3.0-0.5 Mg/3 Ml Neb Soln) 3 ml NEB QID PRN PRN Reason: Shortness Of Breath/wheezing Glyburide (Glyburide 2.5 Mg Tab) Confirm Administered Dose 2.5 mg .ROUTE .STK- MED ONE Stop: 07/05/21 21:22 Last Admin: 07/05/21 21:38 Dose: Not Given Documented by: Sodium Chloride (Normal Saline) 1,000 mls @ 125 mls/hr IV ASDIRECTED [facility] Last Admin: 07/06/21 04:19 Dose: 125 mls/hr Documented by: Influenza Virus Vaccine (Pharmacy To Dose - Influenza Vaccine) 1 each IM ONETIME ONE Stop: 07/05/21 20:33 Influenza Virus Vaccine (Flu Vacc [id number](6mos Up)/Pf 60 Mcg/0.5 Ml Syringe) 60 mcg IM .ONCE ONE Stop: 07/05/21 21:01 Last Admin: 07/06/21 06:09 Dose: Not Given Documented by: Non-Formulary Medication (Glyburide [Glyburide]) 7.5 mg PO BID [facility] Last Admin: 07/05/21 21:37 Dose: 7.5 mg Documented by: Non-Formulary Medication (Metformin [Glucophage]) 1,000 mg PO BIDMEALS [facility] Last Admin: 07/05/21 16:24 Dose: 1,000 mg Documented by: Non-Formulary Medication (Omeprazole [Omeprazole]) 20 mg PO DAILY [facility] Last Admin: 07/05/21 16:24 Dose: 20 mg Documented by: Oxycodone HCl (Oxycodone 5 Mg Tab) 5 mg PO Q6H PRN PRN Reason: Pain Last Admin: 07/06/21 07:53 Dose: 5 mg Documented by: Oxycodone HCl (Oxycodone 5 Mg Tab) 5 mg PO Q6H PRN PRN Reason: Pain - Exam Quality Assessment: No: Supplemental Oxygen General: Alert, Oriented, Cooperative, No Acute Distress Lungs: Normal Respiratory Effort GI/Abdominal Exam: Soft, No Distention Extremities: No Pedal Edema, Increased Warmth (mild right knee ) Skin: Warm, Dry Psy/Mental Status: Alert, Normal Affect - Patient Data Lab Results Last 24 hrs: Laboratory Results - last 24 hr 07/05/21 07/05/21 07/05/21 Range/Units 17:24 19:51 20:56 WBC (4.5-11.0) K/uL RBC (3.30-5.50) M/uL Hgb (12.0-15.0) g/dL Hct (36.0-48.0) % MCV (80-98) fL MCH (27-31) pg MCHC (32-36) % Plt Count (150-400) K/uL Neut % (Auto) (36-66) % Lymph % (Auto) (24-44) % [place] % (Auto) (2-6) % Eos % (Auto) (2-4) % Baso % (Auto) (0-1) % Sodium (140-148) mmol/L Potassium (3.6-5.2) mmol/L Chloride (100-108) mmol/L Carbon Dioxide (21-32) mmol/L Anion Gap (5.0-14.0) mmol/L BUN (7-18) mg/dL Creatinine (0.6-1.0) mg/dL Est Cr Clr Drug Dosing mL/min Estimated GFR (MDRD) (>60) Glucose (74-106) mg/dL POC Glucose 122 H (74-106) mg/dL Calcium (8.5-10.1) mg/dL Magnesium (1.8-2.4) mg/dL Total Bilirubin (0.2-1.0) mg/dL AST (15-37) U/L ALT (12-78) U/L Alkaline Phosphatase (46-116) U/L Total Protein (6.4-8.2) g/dL Albumin (3.4-5.0) g/dL Globulin (2.3-3.5) g/dL Albumin/Globulin Ratio (1.2-2.2) Urine Color Yellow (YELLOW) Urine Appearance Turbid A (CLEAR) Urine pH 5.5 (5.0-8.0) Ur Specific [place] >= 1.030 (1.008-1.030) Urine Protein 30 H (NEGATIVE) mg/dL Urine Glucose (UA) Negative (NEGATIVE) mg/dL Urine Ketones Negative (NEGATIVE) mg/dL Urine Occult Blood Trace-intact H (NEGATIVE) Urine Nitrite Positive H (NEGATIVE) Urine Bilirubin Negative (NEGATIVE) Urine Urobilinogen 1.0 (0.2-1.0) EU/dL Ur Leukocyte Esterase Small H (NEGATIVE) Urine RBC 5-10 H (0-5) Urine WBC 10-20 H (0-5) Ur Epithelial Cells Few Amorphous Sediment Few Urine Bacteria Many Urine Mucus Few Influenza Type A RNA Negative (NEGATIVE) RSV RNA (INAAT) Negative (NEGATIVE) Influenza Type B RNA Negative (NEGATIVE) SARS-CoV-2 RNA (JUNG) Negative (NEGATIVE) 07/06/21 07/06/21 07/06/21 Range/Units 04:41 04:41 07:17 WBC 13.2 H (4.5-11.0) K/uL RBC 3.22 L (3.30-5.50) M/uL Hgb 8.6 L D (12.0-15.0) g/dL Hct 27.8 L (36.0-48.0) % MCV 86 (80-98) fL MCH 27 (27-31) pg MCHC 31 L (32-36) % Plt Count 709 H (150-400) K/uL Neut % (Auto) 71.4 H (36-66) % Lymph % (Auto) 15.9 L (24-44) % [place] % (Auto) 6.4 H (2-6) % Eos % (Auto) 6.0 H (2-4) % Baso % (Auto) 0.3 (0-1) % Sodium 140 (140-148) mmol/L Potassium 4.1 (3.6-5.2) mmol/L Chloride 103 (100-108) mmol/L Carbon Dioxide 29 (21-32) mmol/L Anion Gap 7.9 (5.0-14.0) mmol/L BUN 13 D (7-18) mg/dL Creatinine 0.5 L (0.6-1.0) mg/dL Est Cr Clr Drug Dosing 107.81 mL/min Estimated GFR (MDRD) > 60 (>60) Glucose 87 (74-106) mg/dL POC Glucose 59 L (74-106) mg/dL Calcium 8.4 L (8.5-10.1) mg/dL Magnesium 1.7 L (1.8-2.4) mg/dL Total Bilirubin 1.0 (0.2-1.0) mg/dL AST 16 (15-37) U/L ALT 16 (12-78) U/L Alkaline Phosphatase 157 H (46-116) U/L Total Protein 5.8 L (6.4-8.2) g/dL Albumin 2.4 L (3.4-5.0) g/dL Globulin 3.4 (2.3-3.5) g/dL Albumin/Globulin Ratio 0.7 L (1.2-2.2) Urine Color (YELLOW) Urine Appearance (CLEAR) Urine pH (5.0-8.0) Ur Specific [place] (1.008-1.030) Urine Protein (NEGATIVE) mg/dL Urine Glucose (UA) (NEGATIVE) mg/dL Urine Ketones (NEGATIVE) mg/dL Urine Occult Blood (NEGATIVE) Urine Nitrite (NEGATIVE) Urine Bilirubin (NEGATIVE) Urine Urobilinogen (0.2-1.0) EU/dL Ur Leukocyte Esterase (NEGATIVE) Urine RBC (0-5) Urine WBC (0-5) Ur Epithelial Cells Amorphous Sediment Urine Bacteria Urine Mucus Influenza Type A RNA (NEGATIVE) RSV RNA (INAAT) (NEGATIVE) Influenza Type B RNA (NEGATIVE) SARS-CoV-2 RNA (JUNG) (NEGATIVE) Result Diagrams: 07/06/21 04:41 07/06/21 04:41 Jesu Results Last 24 hrs: Microbiology 07/05/21 14:11 Urine Culture - Preliminary Urine, Catheterized Sepsis Event Note - Evaluation Sepsis Screening Result: No Definite Risk - Focused Exam Vital Signs: Vital Signs Temp Pulse Resp BP Pulse Ox 07/06/21 11:11 36.3 C 94 16 132/61 90 L 07/06/21 07:41 94 L 07/06/21 06:56 36.4 C 79 18 131/58 L 95 07/06/21 02:39 35.9 C L 84 18 138/67 94 L 07/06/21 00:34 93 L 07/05/21 23:42 95 - Problem List Review Problem List Initiated/Reviewed/Updated: Yes - My Orders Last 24 Hours: My Active Orders 07/06/21 07:39 Consult to Occupational Therapy [OT Evaluation and Treatment] [CONS] Routine PT Evaluation and Treatment [CONS] Routine 07/06/21 11:29 Discontinue Telemetry Monitoring [Cardiac Monitoring Discontinue] [RC] Click to Edit Magnesium Sulfate/Water [Magnesium Sulfate in Water 2 GM/50 ML] 2 gm Premix Bag 1 bag IV ONETIME Convert IV to Saline Lock [OM.PC] Routine [place] Sutures Removal [RC] ROUTINE 07/06/21 11:30 GLUCOSE POC LAB TO COLLECT JPM [POC] QIDACANDBED Celecoxib [CeleBREX] 200 mg PO DAILY 07/06/21 11:30 oxyCODONE 10 mg PO Q6H PRN 07/06/21 16:30 GLUCOSE POC LAB TO COLLECT JPM [POC] QIDACANDBED 07/06/21 21:00 GLUCOSE POC LAB TO COLLECT JPM [POC] QIDACANDBED 07/07/21 05:00 BASIC METABOLIC PANEL,BMP [CHEM] Timed CBC W/O DIFF,HEMOGRAM [HEME] Timed (1) 07/07/21 07:30 GLUCOSE POC LAB TO COLLECT JPM [POC] QIDACANDBED 07/07/21 11:30 GLUCOSE POC LAB TO COLLECT JPM [POC] QIDACANDBED 07/07/21 16:30 GLUCOSE POC LAB TO COLLECT JPM [POC] QIDACANDBED 07/07/21 21:00 GLUCOSE POC LAB TO COLLECT JPM [POC] QIDACANDBED 07/08/21 07:30 GLUCOSE POC LAB TO COLLECT JPM [POC] QIDACANDBED 07/08/21 11:30 GLUCOSE POC LAB TO COLLECT JPM [POC] QIDACANDBED 07/08/21 16:30 GLUCOSE POC LAB TO COLLECT JPM [POC] QIDACANDBED 07/08/21 21:00 GLUCOSE POC LAB TO COLLECT JPM [POC] QIDACANDBED 07/09/21 07:30 GLUCOSE POC LAB TO COLLECT JPM [POC] QIDACANDBED 07/09/21 11:30 GLUCOSE POC LAB TO COLLECT JPM [POC] QIDACANDBED 07/09/21 16:30 GLUCOSE POC LAB TO COLLECT JPM [POC] QIDACANDBED 07/09/21 21:00 GLUCOSE POC LAB TO COLLECT JPM [POC] QIDACANDBED 07/10/21 07:30 GLUCOSE POC LAB TO COLLECT JPM [POC] QIDACANDBED 07/10/21 11:30 GLUCOSE POC LAB TO COLLECT JPM [POC] QIDACANDBED 07/10/21 16:30 GLUCOSE POC LAB TO COLLECT JPM [POC] QIDACANDBED 07/10/21 21:00 GLUCOSE POC LAB TO COLLECT JPM [POC] QIDACANDBED 07/11/21 07:30 GLUCOSE POC LAB TO COLLECT JPM [POC] QIDACANDBED 07/11/21 11:30 GLUCOSE POC LAB TO COLLECT JPM [POC] QIDACANDBED 07/11/21 16:30 GLUCOSE POC LAB TO COLLECT JPM [POC] QIDACANDBED 07/11/21 21:00 GLUCOSE POC LAB TO COLLECT JPM [POC] QIDACANDBED 07/12/21 07:30 GLUCOSE POC LAB TO COLLECT JPM [POC] QIDACANDBED 07/12/21 11:30 GLUCOSE POC LAB TO COLLECT JPM [POC] QIDACANDBED 07/12/21 16:30 GLUCOSE POC LAB TO COLLECT JPM [POC] QIDACANDBED 07/12/21 21:00 GLUCOSE POC LAB TO COLLECT JPM [POC] QIDACANDBED 07/13/21 07:30 GLUCOSE POC LAB TO COLLECT JPM [POC] QIDACANDBED 07/13/21 11:30 GLUCOSE POC LAB TO COLLECT JPM [POC] QIDACANDBED - Plan Plan:: ASSESSMENT AND PLAN - S/P ORIF RIGHT HIP FRACTURE ON 05/19/2021, RIGHT KNEE FRACTURE 05/19/2021-still having significant pain. Not doing well with rehab at home because of the pain and nonweightbearing status on the right leg. -Saline lock IV -Increase oxycodone to 10 mg -Scheduled Celebrex -consult to PT -consult to OT -Nonweightbearing right leg Acute cystitis without hematuria-urinalysis collected after admission suggestive of infection. -Continue ceftriaxone until culture final Stage II pressure ulcer of the sacral region-mild skin breakdown and redness. Present on admission. Likely related to sitting in her chair for the past week. -Local wound cares Diabetes mellitus type 2-blood sugar low this morning. -POC blood glucose testing before meals -continue Metformin and Glyburide Tobacco dependence - smokes two cigarettes at night for the past 45 years- no interest in quitting. -declines gum or patch -encouraged to quit smoking Anxiety-stable. -continue outpatient medications Maintenance issues -Nutrition: consistent carb diet -DVT -enoxaparin -GI - Protonix 40mg po daily Disposition: I anticipate [facility] a [facility] for rehab versus possibly home with home care Primary care provider: Dr. Nandini Montoya, [facility], Fletcher Benjamin MD
[2021-07-06] MEDS: Meclizine 25 MG Tab PO PRN (12:16)
[2021-07-06] MEDS ORDERED: Magnesium Sulfate/Water 2 GM in Premix Bag 1 BAG IV ONE (12:30)
[2021-07-06] MEDS: Celecoxib 200 MG Cap PO SCH (12:32)
--- NOTE | 2021-07-06 14:28 | LETTER ---
07/06/2021 RE: DEDRA MOROCHO : 1960 To Whom It May Concern Mrs. Dedra Morocho is currently admitted to the hospital at [facility] in [place]. She has recently suffered a right hip and right fibula fracture. Because of these fractures, she is not able to bear any weight on her right leg. She requires the use of a wheelchair for mobility until her fractures heal, which unfortunately is not in the foreseeable future. She would benefit from a ramp into her residence that will allow her to be able to enter the house in a wheelchair. Sincerely, /[phone]
--- NOTE | 2021-07-06 15:37 | CR ---
CHEST: Portable 07/06/2021 at 1430 CLINICAL HISTORY:Left chest pain COMPARISON:2019 FINDINGS: There is moderate chronic elevation right hemidiaphragm. There is some streaky right basal atelectasis. No infiltrate effusion or pneumothorax is seen. No obvious rib fracture identified. Impression: Chronic elevation right hemidiaphragm No acute cardiopulmonary process
[2021-07-06] MEDS: Amitriptyline 10 MG Tab PO SCH (20:26)
[2021-07-06] MEDS: DULoxetine 30 MG Cap PO SCH (20:27)
[2021-07-06] MEDS: cefTRIAXone 1 GM in Sodium Chloride 0.9% 50 ML IV SCH (22:13)
[2021-07-07] MEDS: Pantoprazole 40 MG Tab.CR PO SCH (07:25)
[2021-07-07] MEDS: oxyCODONE 5 MG Tab PO PRN ×3 (07:25→19:48)
[2021-07-07] MEDS: Meclizine 25 MG Tab PO PRN (07:25)
[2021-07-07] MEDS: Docusate Sodium 100 MG Cap PO SCH ×2 (08:13→20:53)
[2021-07-07] MEDS: Ferrous Sulfate 325 MG Tab PO SCH (08:13)
[2021-07-07] MEDS: metFORMIN 500 MG Tab PO SCH ×2 (08:13→17:22)
[2021-07-07] MEDS: Enoxaparin 40 MG/0.4 ML Syringe SUBCUT SCH (08:14)
[2021-07-07] MEDS: Celecoxib 200 MG Cap PO SCH (09:26)
--- NOTE | 2021-07-07 10:58 | PCM.PN ---
- General Info Date of Service: 07/07/21 Subjective Update: There were no acute events overnight. Patient reports improved pain control today with the changes made yesterday. Still having some slow bleeding from the most superior wound from her hip surgery. This appears to be slow drainage from a hematoma. No fevers. Blood sugars have been well controlled. She is able to move both feet at the ankles without any pain today. She is in better spirits today. Urine culture grew out E. coli sensitive to cephalosporins. Functional Status: Reports: Pain Controlled, Tolerating Diet - Patient Data Vitals - Most Recent: Last Vital Signs Temp 35.8 C L 07/07/21 10:10 Pulse 82 07/07/21 10:10 Resp 18 07/07/21 10:10 BP 110/56 L 07/07/21 10:10 Pulse Ox 91 L 07/07/21 10:10 Weight - Most Recent: 92.533 kg I&O - Last 24 Hours: Intake & Output 07/06/21 07/07/21 07/07/21 22:59 06:59 14:59 Intake Total 690 240 Output Total 900 850 Balance -210 -850 240 Lab Results Last 24 Hours: Laboratory Results - last 24 hr 07/06/21 07/06/21 07/06/21 Range/Units 12:04 16:29 21:19 WBC (4.5-11.0) K/uL RBC (3.30-5.50) M/uL Hgb (12.0-15.0) g/dL Hct (36.0-48.0) % MCV (80-98) fL MCH (27-31) pg MCHC (32-36) % Plt Count (150-400) K/uL Sodium (140-148) mmol/L Potassium (3.6-5.2) mmol/L Chloride (100-108) mmol/L Carbon Dioxide (21-32) mmol/L Anion Gap (5.0-14.0) mmol/L BUN (7-18) mg/dL Creatinine (0.6-1.0) mg/dL Est Cr Clr Drug Dosing mL/min Estimated GFR (MDRD) (>60) Glucose (74-106) mg/dL POC Glucose 218 H 105 138 H (74-106) mg/dL Calcium (8.5-10.1) mg/dL 07/07/21 07/07/21 07/07/21 Range/Units 05:40 05:40 07:37 WBC 11.8 H (4.5-11.0) K/uL RBC 3.41 (3.30-5.50) M/uL Hgb 9.0 L (12.0-15.0) g/dL Hct 29.4 L (36.0-48.0) % MCV 86 (80-98) fL MCH 26 L (27-31) pg MCHC 31 L (32-36) % Plt Count 761 H (150-400) K/uL Sodium 139 L (140-148) mmol/L Potassium 4.2 (3.6-5.2) mmol/L Chloride 103 (100-108) mmol/L Carbon Dioxide 27 (21-32) mmol/L Anion Gap 13.2 (5.0-14.0) mmol/L BUN 8 (7-18) mg/dL Creatinine 0.5 L (0.6-1.0) mg/dL Est Cr Clr Drug Dosing 107.81 mL/min Estimated GFR (MDRD) > 60 (>60) Glucose 128 H (74-106) mg/dL POC Glucose 124 H (74-106) mg/dL Calcium 8.3 L (8.5-10.1) mg/dL Jesu Results Last 24 Hours: Microbiology 07/05/21 14:11 Urine Culture - Final Urine, Catheterized Escherichia Coli Med Orders - Current: Current Medications Albuterol (Albuterol 0.083% 2.5 Mg/3 Ml Neb Soln) 2.5 mg NEB Q4H PRN PRN Reason: Shortness Of Breath/wheezing Amitriptyline HCl (Amitriptyline 10 Mg Tab) 10 mg PO BEDTIME [facility] Last Admin: 07/06/21 20:26 Dose: 10 mg Documented by: Bisacodyl (Bisacodyl 5 Mg Tab) 5 mg PO DAILY PRN PRN Reason: Constipation Last Admin: 07/07/21 08:13 Dose: 5 mg Documented by: Celecoxib (Celecoxib 200 Mg Cap) 200 mg PO DAILY [facility] Last Admin: 07/07/21 09:26 Dose: 200 mg Documented by: Dimethicone/Zinc Oxide (Dimethicone 20%/Zinc Oxide 25% 56 Gm Antimony Bottle) 1 gm TOP ASDIRECTED PRN PRN Reason: Rash Last Admin: 07/05/21 14:34 Dose: 1 applic Documented by: Diphenhydramine HCl (Diphenhydramine 25 Mg Cap) 25 mg PO Q4H PRN PRN Reason: Itching Docusate Sodium (Docusate Sodium 100 Mg Cap) 100 mg PO BID [facility] Last Admin: 07/07/21 08:13 Dose: 100 mg Documented by: Duloxetine HCl (Duloxetine 30 Mg Cap) 30 mg PO BEDTIME [facility] Last Admin: 07/06/21 20:27 Dose: 30 mg Documented by: Enoxaparin Sodium (Enoxaparin 40 Mg/0.4 Ml Syringe) 40 mg SUBCUT DAILY [facility] Last Admin: 07/07/21 08:14 Dose: 40 mg Documented by: Fentanyl (Fentanyl 100 Mcg/2 Ml Sdv) 50 mcg IVPUSH Q4H PRN PRN Reason: Pain Last Admin: 07/06/21 19:46 Dose: 50 mcg Documented by: Ferrous Sulfate (Ferrous Sulfate 325 Mg Tab) 325 mg PO DAILY [facility] Last Admin: 07/07/21 08:13 Dose: 325 mg Documented by: Glyburide (Glyburide 2.5 Mg Tab) 7.5 mg PO BID [facility] Lorazepam (Lorazepam 2 Mg/Ml Sdv) 1 mg IV Q6H PRN PRN Reason: Nausea/Vomiting Meclizine HCl (Meclizine 25 Mg Tab) 25 mg PO Q6H PRN PRN Reason: Dizziness Last Admin: 07/07/21 07:25 Dose: 25 mg Documented by: Metformin HCl (Metformin 500 Mg Tab) 1,000 mg PO BIDMEALS [facility] Last Admin: 07/07/21 08:13 Dose: 1,000 mg Documented by: Ondansetron HCl (Ondansetron 4 Mg Tab.Dis) 4 mg PO Q6H PRN PRN Reason: Nausea able to take PO Last Admin: 07/06/21 09:38 Dose: 4 mg Documented by: Oxycodone HCl (Oxycodone 5 Mg Tab) 10 mg PO Q6H PRN PRN Reason: Pain Last Admin: 07/07/21 07:25 Dose: 10 mg Documented by: Pantoprazole Sodium (Pantoprazole 40 Mg Tab.Cr) 40 mg PO ACBREAKFAST [facility] Last Admin: 07/07/21 07:25 Dose: 40 mg Documented by: Senna/Docusate Sodium (Docusate Sodium/Sennosides 50-8.6 Mg Tab) 2 tab PO DAILY PRN PRN Reason: Constipation Discontinued Medications Albuterol/Ipratropium (Albuterol/Ipratropium 3.0-0.5 Mg/3 Ml Neb Soln) 3 ml NEB QID PRN PRN Reason: Shortness Of Breath/wheezing Glyburide (Glyburide 2.5 Mg Tab) Confirm Administered Dose 2.5 mg .ROUTE .STK- MED ONE Stop: 07/05/21 21:22 Last Admin: 07/05/21 21:38 Dose: Not Given Documented by: Sodium Chloride (Normal Saline) 1,000 mls @ 125 mls/hr IV ASDIRECTED [facility] Last Admin: 07/06/21 04:19 Dose: 125 mls/hr Documented by: Ceftriaxone Sodium 1 gm/ (Sodium Chloride) 50 mls @ 100 mls/hr IV Q24H [facility] Last Admin: 07/06/21 22:13 Dose: 100 mls/hr Documented by: Magnesium Sulfate 2 gm/ Premix 50 mls @ 25 mls/hr IV ONETIME ONE Stop: 07/06/21 14:29 Last Admin: 07/06/21 12:33 Dose: 25 mls/hr Documented by: Influenza Virus Vaccine (Pharmacy To Dose - Influenza Vaccine) 1 each IM ONETIME ONE Stop: 07/05/21 20:33 Influenza Virus Vaccine (Flu Vacc [id number](6mos Up)/Pf 60 Mcg/0.5 Ml Syringe) 60 mcg IM .ONCE ONE Stop: 07/05/21 21:01 Last Admin: 07/06/21 06:09 Dose: Not Given Documented by: Non-Formulary Medication (Glyburide [Glyburide]) 7.5 mg PO BID [facility] Last Admin: 07/05/21 21:37 Dose: 7.5 mg Documented by: Non-Formulary Medication (Metformin [Glucophage]) 1,000 mg PO BIDMEALS [facility] Last Admin: 07/05/21 16:24 Dose: 1,000 mg Documented by: Non-Formulary Medication (Omeprazole [Omeprazole]) 20 mg PO DAILY [facility] Last Admin: 07/05/21 16:24 Dose: 20 mg Documented by: Oxycodone HCl (Oxycodone 5 Mg Tab) 5 mg PO Q6H PRN PRN Reason: Pain Last Admin: 07/06/21 07:53 Dose: 5 mg Documented by: Oxycodone HCl (Oxycodone 5 Mg Tab) 5 mg PO Q6H PRN PRN Reason: Pain - Exam Quality Assessment: No: Supplemental Oxygen Urinary Catheter Total Time: 0Days 14Hours General: Alert, Oriented, Cooperative, No Acute Distress Lungs: Normal Respiratory Effort GI/Abdominal Exam: No Distention Extremities: No Pedal Edema Skin: Warm, Dry Wound/Incisions: Drainage (mild residual bleeding from superior incision ) Psy/Mental Status: Alert, Normal Affect - Patient Data Lab Results Last 24 hrs: Laboratory Results - last 24 hr 07/06/21 07/06/21 07/06/21 Range/Units 12:04 16:29 21:19 WBC (4.5-11.0) K/uL RBC (3.30-5.50) M/uL Hgb (12.0-15.0) g/dL Hct (36.0-48.0) % MCV (80-98) fL MCH (27-31) pg MCHC (32-36) % Plt Count (150-400) K/uL Sodium (140-148) mmol/L Potassium (3.6-5.2) mmol/L Chloride (100-108) mmol/L Carbon Dioxide (21-32) mmol/L Anion Gap (5.0-14.0) mmol/L BUN (7-18) mg/dL Creatinine (0.6-1.0) mg/dL Est Cr Clr Drug Dosing mL/min Estimated GFR (MDRD) (>60) Glucose (74-106) mg/dL POC Glucose 218 H 105 138 H (74-106) mg/dL Calcium (8.5-10.1) mg/dL 07/07/21 07/07/21 07/07/21 Range/Units 05:40 05:40 07:37 WBC 11.8 H (4.5-11.0) K/uL RBC 3.41 (3.30-5.50) M/uL Hgb 9.0 L (12.0-15.0) g/dL Hct 29.4 L (36.0-48.0) % MCV 86 (80-98) fL MCH 26 L (27-31) pg MCHC 31 L (32-36) % Plt Count 761 H (150-400) K/uL Sodium 139 L (140-148) mmol/L Potassium 4.2 (3.6-5.2) mmol/L Chloride 103 (100-108) mmol/L Carbon Dioxide 27 (21-32) mmol/L Anion Gap 13.2 (5.0-14.0) mmol/L BUN 8 (7-18) mg/dL Creatinine 0.5 L (0.6-1.0) mg/dL Est Cr Clr Drug Dosing 107.81 mL/min Estimated GFR (MDRD) > 60 (>60) Glucose 128 H (74-106) mg/dL POC Glucose 124 H (74-106) mg/dL Calcium 8.3 L (8.5-10.1) mg/dL Result Diagrams: 07/07/21 05:40 07/07/21 05:40 Jesu Results Last 24 hrs: Microbiology 07/05/21 14:11 Urine Culture - Final Urine, Catheterized Escherichia Coli Sepsis Event Note - Evaluation Sepsis Screening Result: No Definite Risk - Focused Exam Vital Signs: Vital Signs Temp Pulse Resp BP BP Pulse Ox 07/07/21 10:10 35.8 C L 82 18 110/56 L 91 L 07/07/21 07:27 36.0 C L 88 18 134/74 91 L 07/07/21 02:56 36.1 C 84 16 126/59 L 92 L 07/06/21 23:00 35.7 C L 88 18 132/47 L 90 L - Problem List Review Problem List Initiated/Reviewed/Updated: Yes - My Orders Last 24 Hours: My Active Orders 07/06/21 11:29 Convert IV to Saline Lock [OM.PC] Routine 07/06/21 11:30 oxyCODONE 10 mg PO Q6H PRN 07/06/21 12:00 Celecoxib [CeleBREX] 200 mg PO DAILY 07/06/21 17:19 Urinary Catheter Assessment [RC] ASDIRECTED 07/06/21 17:30 Insert Sam Catheter [Insert Urinary Catheter] [OM.PC] Q24H 07/07/21 11:30 GLUCOSE POC LAB TO COLLECT JPM [POC] QIDACANDBED 07/07/21 16:30 GLUCOSE POC LAB TO COLLECT JPM [POC] QIDACANDBED 07/07/21 21:00 GLUCOSE POC LAB TO COLLECT JPM [POC] QIDACANDBED cephALEXin [Keflex] 500 mg PO BID 07/08/21 07:30 GLUCOSE POC LAB TO COLLECT JPM [POC] QIDACANDBED 07/08/21 11:30 GLUCOSE POC LAB TO COLLECT JPM [POC] QIDACANDBED 07/08/21 16:30 GLUCOSE POC LAB TO COLLECT JPM [POC] QIDACANDBED 07/08/21 21:00 GLUCOSE POC LAB TO COLLECT JPM [POC] QIDACANDBED 07/09/21 07:30 GLUCOSE POC LAB TO COLLECT JPM [POC] QIDACANDBED 07/09/21 11:30 GLUCOSE POC LAB TO COLLECT JPM [POC] QIDACANDBED 07/09/21 16:30 GLUCOSE POC LAB TO COLLECT JPM [POC] QIDACANDBED 07/09/21 21:00 GLUCOSE POC LAB TO COLLECT JPM [POC] QIDACANDBED 07/10/21 07:30 GLUCOSE POC LAB TO COLLECT JPM [POC] QIDACANDBED 07/10/21 11:30 GLUCOSE POC LAB TO COLLECT JPM [POC] QIDACANDBED 07/10/21 16:30 GLUCOSE POC LAB TO COLLECT JPM [POC] QIDACANDBED 07/10/21 21:00 GLUCOSE POC LAB TO COLLECT JPM [POC] QIDACANDBED 07/11/21 07:30 GLUCOSE POC LAB TO COLLECT JPM [POC] QIDACANDBED 07/11/21 11:30 GLUCOSE POC LAB TO COLLECT JPM [POC] QIDACANDBED 07/11/21 16:30 GLUCOSE POC LAB TO COLLECT JPM [POC] QIDACANDBED 07/11/21 21:00 GLUCOSE POC LAB TO COLLECT JPM [POC] QIDACANDBED 07/12/21 07:30 GLUCOSE POC LAB TO COLLECT JPM [POC] QIDACANDBED 07/12/21 11:30 GLUCOSE POC LAB TO COLLECT JPM [POC] QIDACANDBED 07/12/21 16:30 GLUCOSE POC LAB TO COLLECT JPM [POC] QIDACANDBED 07/12/21 21:00 GLUCOSE POC LAB TO COLLECT JPM [POC] QIDACANDBED 07/13/21 07:30 GLUCOSE POC LAB TO COLLECT JPM [POC] QIDACANDBED 07/13/21 11:30 GLUCOSE POC LAB TO COLLECT JPM [POC] QIDACANDBED - Plan Plan:: ASSESSMENT AND PLAN - S/P ORIF RIGHT HIP FRACTURE ON 05/19/2021, RIGHT KNEE FRACTURE 05/19/2021-pain a little better today with changes made yesterday. Able to stand for a few seconds on her left leg. Still has a long road to recovery with physical therapy. -Saline lock IV -Continue oxycodone 10 mg as needed -Scheduled Celebrex -consult to PT -consult to OT -Nonweightbearing right leg Acute cystitis without hematuria-urine culture grew out E. coli. -Change antibiotics to cephalexin Stage II pressure ulcer of the sacral region-mild skin breakdown and redness. Present on admission. Likely related to sitting in her chair for the past week. -Local wound cares Diabetes mellitus type 2-blood sugar control has been good the past 24 hours -POC blood glucose testing before meals -continue Metformin and Glyburide Tobacco dependence - smokes two cigarettes at night for the past 45 years- no interest in quitting. -declines gum or patch -encouraged to quit smoking Anxiety-stable. -continue outpatient medications Maintenance issues -Nutrition: consistent carb diet -DVT -enoxaparin -GI - Protonix 40mg po daily Disposition: I anticipate discharge to a fpc facility for rehab versus possibly home with home care Primary care provider: Dr. Nandini Montoya, [facility], Fletcher Benjamin MD
[2021-07-07] MEDS ORDERED: Trolamine Salicylate/Aloe Vera 10% Crm 85 GM Tube TOP PRN (12:36)
[2021-07-07] MEDS: Amitriptyline 10 MG Tab PO SCH (20:53)
[2021-07-07] MEDS: DULoxetine 30 MG Cap PO SCH (20:53)
[2021-07-07] MEDS: Cephalexin 250 MG Cap PO SCH (20:53)
[2021-07-07] MEDS: fentaNYL 100 MCG/2 ML SDV IVPUSH PRN (23:28)
[2021-07-08] MEDS: oxyCODONE 5 MG Tab PO PRN ×4 (02:06→19:19)
[2021-07-08] MEDS: Pantoprazole 40 MG Tab.CR PO SCH (07:50)
[2021-07-08] MEDS: metFORMIN 500 MG Tab PO SCH ×2 (07:50→16:20)
[2021-07-08] MEDS: diphenhydrAMINE 25 MG Cap PO PRN (08:15)
[2021-07-08] MEDS: Celecoxib 200 MG Cap PO SCH (09:47)
[2021-07-08] MEDS: Docusate Sodium 100 MG Cap PO SCH ×2 (09:47→21:13)
[2021-07-08] MEDS: Ferrous Sulfate 325 MG Tab PO SCH (09:47)
[2021-07-08] MEDS: Cephalexin 250 MG Cap PO SCH ×2 (09:47→21:13)
[2021-07-08] MEDS: Meclizine 25 MG Tab PO SCH (09:47)
[2021-07-08] MEDS: Enoxaparin 40 MG/0.4 ML Syringe SUBCUT SCH (09:47)
[2021-07-08] MEDS ORDERED: Magnesium Hydroxide 400 MG/5 ML Susp 30 ML Cup PO PRN (09:52)
[2021-07-08] MEDS ORDERED: Bisacodyl 10 MG Supp RECTAL ONE (10:05)
--- NOTE | 2021-07-08 10:57 | PCM.PN ---
- General Info Date of Service: 07/08/21 Subjective Update: No acute events overnight. Patient reports she feels well again today. She was able to stand on her left leg for about 5 seconds yesterday. She does continue to have some oozing from the small hematoma on the right hip. Slept well last night. Blood sugars have been well controlled. She is in good spirits and hoping to keep moving forward with physical therapy. Functional Status: Reports: Pain Controlled, Tolerating Diet - Review of Systems General: Reports: Weakness Musculoskeletal: Reports: Leg Pain - Patient Data Vitals - Most Recent: Last Vital Signs Temp 35.3 C L 07/08/21 06:58 Pulse 85 07/08/21 06:58 Resp 18 07/08/21 06:58 BP 129/78 07/08/21 06:58 Pulse Ox 93 L 07/08/21 06:58 Weight - Most Recent: 92.533 kg I&O - Last 24 Hours: Intake & Output 07/07/21 07/08/21 07/08/21 23:59 06:59 14:59 Intake Total Output Total 700 Balance -700 Lab Results Last 24 Hours: Laboratory Results - last 24 hr 07/07/21 Range/Units 16:27 POC Glucose 140 H (74-106) mg/dL Med Orders - Current: Current Medications Albuterol (Albuterol 0.083% 2.5 Mg/3 Ml Neb Soln) 2.5 mg NEB Q4H PRN PRN Reason: Shortness Of Breath/wheezing Amitriptyline HCl (Amitriptyline 10 Mg Tab) 10 mg PO BEDTIME [facility] Last Admin: 07/07/21 20:53 Dose: 10 mg Documented by: Bisacodyl (Bisacodyl 5 Mg Tab) 5 mg PO DAILY PRN PRN Reason: Constipation Last Admin: 07/07/21 08:13 Dose: 5 mg Documented by: Celecoxib (Celecoxib 200 Mg Cap) 200 mg PO DAILY [facility] Last Admin: 07/08/21 09:47 Dose: 200 mg Documented by: Cephalexin (Cephalexin 250 Mg Cap) 500 mg PO BID [facility] Stop: 07/10/21 09:01 Last Admin: 07/08/21 09:47 Dose: 500 mg Documented by: Dimethicone/Zinc Oxide (Dimethicone 20%/Zinc Oxide 25% 56 Gm [place] Bottle) 1 gm TOP ASDIRECTED PRN PRN Reason: Rash Last Admin: 07/05/21 14:34 Dose: 1 applic Documented by: Diphenhydramine HCl (Diphenhydramine 25 Mg Cap) 25 mg PO Q4H PRN PRN Reason: Itching Last Admin: 07/08/21 08:15 Dose: 25 mg Documented by: Docusate Sodium (Docusate Sodium 100 Mg Cap) 100 mg PO BID [facility] Last Admin: 07/08/21 09:47 Dose: 100 mg Documented by: Duloxetine HCl (Duloxetine 30 Mg Cap) 30 mg PO BEDTIME [facility] Last Admin: 07/07/21 20:53 Dose: 30 mg Documented by: Enoxaparin Sodium (Enoxaparin 40 Mg/0.4 Ml Syringe) 40 mg SUBCUT DAILY [facility] Last Admin: 07/08/21 09:47 Dose: 40 mg Documented by: Ferrous Sulfate (Ferrous Sulfate 325 Mg Tab) 325 mg PO DAILY [facility] Last Admin: 07/08/21 09:47 Dose: 325 mg Documented by: Glyburide (Glyburide 2.5 Mg Tab) 7.5 mg PO BID [facility] Lorazepam (Lorazepam 2 Mg/Ml Sdv) 1 mg IV Q6H PRN PRN Reason: Nausea/Vomiting Magnesium Hydroxide (Magnesium Hydroxide 400 Mg/5 Ml Susp 30 Ml Cup) 30 ml PO BID PRN PRN Reason: Constipation Meclizine HCl (Meclizine 25 Mg Tab) 25 mg PO DAILY [facility] Last Admin: 07/08/21 09:47 Dose: 25 mg Documented by: Metformin HCl (Metformin 500 Mg Tab) 1,000 mg PO BIDNVALS [facility] Last Admin: 07/08/21 07:50 Dose: 1,000 mg Documented by: Ondansetron HCl (Ondansetron 4 Mg Tab.Dis) 4 mg PO Q6H PRN PRN Reason: Nausea able to take PO Last Admin: 07/06/21 09:38 Dose: 4 mg Documented by: Oxycodone HCl (Oxycodone 5 Mg Tab) 10 mg PO Q6H PRN PRN Reason: Pain Last Admin: 07/08/21 07:50 Dose: 10 mg Documented by: Pantoprazole Sodium (Pantoprazole 40 Mg Tab.Cr) 40 mg PO ACBREAKFAST [facility] Last Admin: 07/08/21 07:50 Dose: 40 mg Documented by: Senna/Docusate Sodium (Docusate Sodium/Sennosides 50-8.6 Mg Tab) 2 tab PO DAILY PRN PRN Reason: Constipation Last Admin: 07/07/21 19:47 Dose: 2 tab Documented by: Trolamine Salicylate (Trolamine Salicylate/Aloe Vera 10% Crm 85 Gm Tube) 0 gm TOP Q1H PRN PRN Reason: back pain/muscle spasm Discontinued Medications Albuterol/Ipratropium (Albuterol/Ipratropium 3.0-0.5 Mg/3 Ml Neb Soln) 3 ml NEB QID PRN PRN Reason: Shortness Of Breath/wheezing Bisacodyl (Bisacodyl 10 Mg Supp) 10 mg RECTAL ONETIME ONE Stop: 07/08/21 10:06 Fentanyl (Fentanyl 100 Mcg/2 Ml Sdv) 50 mcg IVPUSH Q4H PRN PRN Reason: Pain Last Admin: 07/07/21 23:28 Dose: 50 mcg Documented by: Glyburide (Glyburide 2.5 Mg Tab) Confirm Administered Dose 2.5 mg .ROUTE .STK- MED ONE Stop: 07/05/21 21:22 Last Admin: 07/05/21 21:38 Dose: Not Given Documented by: Sodium Chloride (Normal Saline) 1,000 mls @ 125 mls/hr IV ASDIRECTED [facility] Last Admin: 07/06/21 04:19 Dose: 125 mls/hr Documented by: Ceftriaxone Sodium 1 gm/ (Sodium Chloride) 50 mls @ 100 mls/hr IV Q24H [facility] Last Admin: 07/06/21 22:13 Dose: 100 mls/hr Documented by: Magnesium Sulfate 2 gm/ Premix 50 mls @ 25 mls/hr IV ONETIME ONE Stop: 07/06/21 14:29 Last Admin: 07/06/21 12:33 Dose: 25 mls/hr Documented by: Influenza Virus Vaccine (Pharmacy To Dose - Influenza Vaccine) 1 each IM ONETIME ONE Stop: 07/05/21 20:33 Influenza Virus Vaccine (Flu Vacc [id number](6mos Up)/Pf 60 Mcg/0.5 Ml Syringe) 60 mcg IM .ONCE ONE Stop: 07/05/21 21:01 Last Admin: 07/06/21 06:09 Dose: Not Given Documented by: Meclizine HCl (Meclizine 25 Mg Tab) 25 mg PO Q6H PRN PRN Reason: Dizziness Last Admin: 07/07/21 07:25 Dose: 25 mg Documented by: Non-Formulary Medication (Glyburide [Glyburide]) 7.5 mg PO BID [facility] Last Admin: 07/05/21 21:37 Dose: 7.5 mg Documented by: Non-Formulary Medication (Metformin [Glucophage]) 1,000 mg PO BIDMEALS [facility] Last Admin: 07/05/21 16:24 Dose: 1,000 mg Documented by: Non-Formulary Medication (Omeprazole [Omeprazole]) 20 mg PO DAILY [facility] Last Admin: 07/05/21 16:24 Dose: 20 mg Documented by: Oxycodone HCl (Oxycodone 5 Mg Tab) 5 mg PO Q6H PRN PRN Reason: Pain Last Admin: 07/06/21 07:53 Dose: 5 mg Documented by: Oxycodone HCl (Oxycodone 5 Mg Tab) 5 mg PO Q6H PRN PRN Reason: Pain - Exam Quality Assessment: No: Supplemental Oxygen Urinary Catheter Total Time: 1Days 2Hours General: Alert, Oriented, Cooperative, No Acute Distress Lungs: Normal Respiratory Effort GI/Abdominal Exam: Soft, No Distention Extremities: No Pedal Edema Skin: Warm, Dry Wound/Incisions: Drainage (dark old blood soaking through right hip dressing) Psy/Mental Status: Alert, Normal Affect - Patient Data Lab Results Last 24 hrs: Laboratory Results - last 24 hr 07/07/21 Range/Units 16:27 POC Glucose 140 H (74-106) mg/dL Result Diagrams: 07/07/21 05:40 07/07/21 05:40 Sepsis Event Note - Evaluation Sepsis Screening Result: No Definite Risk - Focused Exam Vital Signs: Vital Signs Temp Pulse Resp BP BP Pulse Ox 07/08/21 06:58 35.3 C L 85 18 129/78 93 L 07/08/21 02:00 35.2 C L 74 16 125/64 94 L - Problem List Review Problem List Initiated/Reviewed/Updated: Yes - My Orders Last 24 Hours: My Active Orders 07/07/21 12:36 Trolamine Salicylate/Aloe Vera [Aspercreme 10%] 0 gm TOP Q1H PRN 07/07/21 21:00 GLUCOSE POC LAB TO COLLECT JPM [POC] QIDACANDBED cephALEXin [Keflex] 500 mg PO BID 07/08/21 09:00 Meclizine [Antivert] 25 mg PO DAILY 07/08/21 09:52 Magnesium Hydroxide [Milk of Magnesia] 30 ml PO BID PRN 07/08/21 17:30 Insert Sam Catheter [Insert Urinary Catheter] [OM.PC] Q24H 07/09/21 05:00 BASIC METABOLIC PANEL,BMP [CHEM] Timed CBC W/O DIFF,HEMOGRAM [HEME] Timed (1) - Plan Plan:: ASSESSMENT AND PLAN - S/P ORIF RIGHT HIP FRACTURE ON 05/19/2021, RIGHT KNEE FRACTURE 05/19/2021-pain has been well controlled. Able to stand for a few seconds on her left leg. Still has a long road to recovery with physical therapy. -Saline lock IV -Continue oxycodone 10 mg as needed -Scheduled Celebrex -consult to PT -consult to OT -Nonweightbearing right leg -Dressing changes for draining right hip hematoma Acute cystitis without hematuria-urine culture grew out E. coli. -Continue cephalexin Stage II pressure ulcer of the sacral region-mild skin breakdown and redness. Present on admission. Likely related to sitting in her chair for the past week. -Local wound cares Diabetes mellitus type 2-blood sugar control has been excellent. -continue Metformin and Glyburide Tobacco dependence - smokes two cigarettes at night for the past 45 years. no interest in quitting. -declines gum or patch -encouraged to quit smoking Anxiety-stable. -continue outpatient medications Maintenance issues -Nutrition: consistent carb diet -DVT -enoxaparin -GI - Protonix 40mg po daily Disposition: I anticipate discharge to a long term facility for rehab versus possibly home with home care Primary care provider: Dr. Nandini Montoya, [facility], Fletcher Benjamin MD
[2021-07-08] MEDS: Amitriptyline 10 MG Tab PO SCH (21:13)
[2021-07-08] MEDS: DULoxetine 30 MG Cap PO SCH (21:13)
[2021-07-09] MEDS: oxyCODONE 5 MG Tab PO PRN ×4 (01:08→22:55)
[2021-07-09] MEDS: Pantoprazole 40 MG Tab.CR PO SCH (07:48)
[2021-07-09] MEDS: diphenhydrAMINE 25 MG Cap PO PRN ×2 (08:12→12:30)
[2021-07-09] MEDS: metFORMIN 500 MG Tab PO SCH ×2 (09:29→16:59)
[2021-07-09] MEDS: Meclizine 25 MG Tab PO SCH (09:30)
[2021-07-09] MEDS: Celecoxib 200 MG Cap PO SCH (09:31)
[2021-07-09] MEDS: Docusate Sodium 100 MG Cap PO SCH ×2 (09:33→21:03)
[2021-07-09] MEDS: Ferrous Sulfate 325 MG Tab PO SCH (09:34)
[2021-07-09] MEDS: Cephalexin 250 MG Cap PO SCH ×2 (09:35→21:04)
[2021-07-09] MEDS: Enoxaparin 40 MG/0.4 ML Syringe SUBCUT SCH (09:52)
[2021-07-09] MEDS: Ondansetron 4 MG Tab.DIS PO PRN (10:49)
--- NOTE | 2021-07-09 14:10 | PCM.PN ---
- General Info Date of Service: 07/09/21 Subjective Update: Ms. Key has been fairly stable since yesterday and reports current pain control is adequate. She is continue to work with physical therapy. There is still some bloody drainage from the wound and a fairly hard area superior which is felt to represent a probable hematoma. Functional Status: Reports: Tolerating Diet, Urinating. Denies: Ambulating - Review of Systems General: Reports: Weakness, Fatigue. Denies: Fever, Chills Pulmonary: Reports: No Symptoms Cardiovascular: Reports: No Symptoms Gastrointestinal: Reports: No Symptoms Genitourinary: Reports: No Symptoms - Patient Data Vitals - Most Recent: Last Vital Signs Temp 95.4 F L 07/09/21 11:46 Pulse 78 07/09/21 11:46 Resp 12 07/09/21 11:46 BP 125/62 07/09/21 11:46 Pulse Ox 92 L 07/09/21 11:46 Weight - Most Recent: 204 lb I&O - Last 24 Hours: Intake & Output 07/08/21 07/09/21 07/09/21 22:59 06:59 14:59 Intake Total 800 240 Output Total 600 1200 535 Balance 200 -1200 -295 Lab Results Last 24 Hours: Laboratory Results - last 24 hr 07/09/21 07/09/21 Range/Units 05:53 05:53 WBC 12.9 H (4.5-11.0) K/uL RBC 3.65 (3.30-5.50) M/uL Hgb 9.4 L (12.0-15.0) g/dL Hct 31.0 L (36.0-48.0) % MCV 85 (80-98) fL MCH 26 L (27-31) pg MCHC 30 L (32-36) % Plt Count 739 H (150-400) K/uL Sodium 138 L (140-148) mmol/L Potassium 4.8 (3.6-5.2) mmol/L Chloride 101 (100-108) mmol/L Carbon Dioxide 30 (21-32) mmol/L Anion Gap 11.8 (5.0-14.0) mmol/L BUN 9 (7-18) mg/dL Creatinine 0.6 (0.6-1.0) mg/dL Est Cr Clr Drug Dosing 89.84 mL/min Estimated GFR (MDRD) > 60 (>60) Glucose 143 H (74-106) mg/dL Calcium 8.7 (8.5-10.1) mg/dL Med Orders - Current: Current Medications Albuterol (Albuterol 0.083% 2.5 Mg/3 Ml Neb Soln) 2.5 mg NEB Q4H PRN PRN Reason: Shortness Of Breath/wheezing Amitriptyline HCl (Amitriptyline 10 Mg Tab) 10 mg PO BEDTIME [facility] Last Admin: 07/08/21 21:13 Dose: 10 mg Documented by: Bisacodyl (Bisacodyl 5 Mg Tab) 5 mg PO DAILY PRN PRN Reason: Constipation Last Admin: 07/07/21 08:13 Dose: 5 mg Documented by: Celecoxib (Celecoxib 200 Mg Cap) 200 mg PO DAILY [facility] Last Admin: 07/09/21 09:31 Dose: 200 mg Documented by: Cephalexin (Cephalexin 250 Mg Cap) 500 mg PO BID [facility] Stop: 07/10/21 09:01 Last Admin: 07/09/21 09:35 Dose: 500 mg Documented by: Dimethicone/Zinc Oxide (Dimethicone 20%/Zinc Oxide 25% 56 Gm [place] Bottle) 1 gm TOP ASDIRECTED PRN PRN Reason: Rash Last Admin: 07/05/21 14:34 Dose: 1 applic Documented by: Diphenhydramine HCl (Diphenhydramine 25 Mg Cap) 25 mg PO Q4H PRN PRN Reason: Itching Last Admin: 07/09/21 12:30 Dose: 25 mg Documented by: Docusate Sodium (Docusate Sodium 100 Mg Cap) 100 mg PO BID [facility] Last Admin: 07/09/21 09:33 Dose: 100 mg Documented by: Duloxetine HCl (Duloxetine 30 Mg Cap) 30 mg PO BEDTIME [facility] Last Admin: 07/08/21 21:13 Dose: 30 mg Documented by: Enoxaparin Sodium (Enoxaparin 40 Mg/0.4 Ml Syringe) 40 mg SUBCUT DAILY [facility] Stop: 07/18/21 10:00 Last Admin: 07/09/21 09:52 Dose: 40 mg Documented by: Ferrous Sulfate (Ferrous Sulfate 325 Mg Tab) 325 mg PO DAILY [facility] Last Admin: 07/09/21 09:34 Dose: 325 mg Documented by: Glyburide (Glyburide 2.5 Mg Tab) 7.5 mg PO BID [facility] Lorazepam (Lorazepam 2 Mg/Ml Sdv) 1 mg IV Q6H PRN PRN Reason: Nausea/Vomiting Magnesium Hydroxide (Magnesium Hydroxide 400 Mg/5 Ml Susp 30 Ml Cup) 30 ml PO BID PRN PRN Reason: Constipation Meclizine HCl (Meclizine 25 Mg Tab) 25 mg PO DAILY [facility] Last Admin: 07/09/21 09:30 Dose: 25 mg Documented by: Metformin HCl (Metformin 500 Mg Tab) 1,000 mg PO BIDMEALS [facility] Last Admin: 07/09/21 09:29 Dose: 1,000 mg Documented by: Ondansetron HCl (Ondansetron 4 Mg Tab.Dis) 4 mg PO Q6H PRN PRN Reason: Nausea able to take PO Last Admin: 07/09/21 10:49 Dose: 4 mg Documented by: Oxycodone HCl (Oxycodone 5 Mg Tab) 10 mg PO Q6H PRN PRN Reason: Pain Last Admin: 07/09/21 08:00 Dose: 10 mg Documented by: Pantoprazole Sodium (Pantoprazole 40 Mg Tab.Cr) 40 mg PO ACBREAKFAST [facility] Last Admin: 07/09/21 07:48 Dose: 40 mg Documented by: Senna/Docusate Sodium (Docusate Sodium/Sennosides 50-8.6 Mg Tab) 2 tab PO DAILY PRN PRN Reason: Constipation Last Admin: 07/07/21 19:47 Dose: 2 tab Documented by: Trolamine Salicylate (Trolamine Salicylate/Aloe Vera 10% Crm 85 Gm Tube) 0 gm TOP Q1H PRN PRN Reason: back pain/muscle spasm Last Admin: 07/08/21 19:20 Dose: 1 applic Documented by: Discontinued Medications Albuterol/Ipratropium (Albuterol/Ipratropium 3.0-0.5 Mg/3 Ml Neb Soln) 3 ml NEB QID PRN PRN Reason: Shortness Of Breath/wheezing Bisacodyl (Bisacodyl 10 Mg Supp) 10 mg RECTAL ONETIME ONE Stop: 07/08/21 10:06 Last Admin: 07/08/21 12:22 Dose: Not Given Documented by: Fentanyl (Fentanyl 100 Mcg/2 Ml Sdv) 50 mcg IVPUSH Q4H PRN PRN Reason: Pain Last Admin: 07/07/21 23:28 Dose: 50 mcg Documented by: Glyburide (Glyburide 2.5 Mg Tab) Confirm Administered Dose 2.5 mg .ROUTE .STK- MED ONE Stop: 07/05/21 21:22 Last Admin: 07/05/21 21:38 Dose: Not Given Documented by: Sodium Chloride (Normal Saline) 1,000 mls @ 125 mls/hr IV ASDIRECTED [facility] Last Admin: 07/06/21 04:19 Dose: 125 mls/hr Documented by: Ceftriaxone Sodium 1 gm/ (Sodium Chloride) 50 mls @ 100 mls/hr IV Q24H [facility] Last Admin: 07/06/21 22:13 Dose: 100 mls/hr Documented by: Magnesium Sulfate 2 gm/ Premix 50 mls @ 25 mls/hr IV ONETIME ONE Stop: 07/06/21 14:29 Last Admin: 07/06/21 12:33 Dose: 25 mls/hr Documented by: Influenza Virus Vaccine (Pharmacy To Dose - Influenza Vaccine) 1 each IM ONETIME ONE Stop: 07/05/21 20:33 Influenza Virus Vaccine (Flu Vacc [id number](6mos Up)/Pf 60 Mcg/0.5 Ml Syringe) 60 mcg IM .ONCE ONE Stop: 07/05/21 21:01 Last Admin: 07/06/21 06:09 Dose: Not Given Documented by: Meclizine HCl (Meclizine 25 Mg Tab) 25 mg PO Q6H PRN PRN Reason: Dizziness Last Admin: 07/07/21 07:25 Dose: 25 mg Documented by: Non-Formulary Medication (Glyburide [Glyburide]) 7.5 mg PO BID [facility] Last Admin: 07/05/21 21:37 Dose: 7.5 mg Documented by: Non-Formulary Medication (Metformin [Glucophage]) 1,000 mg PO BIDMEALS [facility] Last Admin: 07/05/21 16:24 Dose: 1,000 mg Documented by: Non-Formulary Medication (Omeprazole [Omeprazole]) 20 mg PO DAILY [facility] Last Admin: 07/05/21 16:24 Dose: 20 mg Documented by: Oxycodone HCl (Oxycodone 5 Mg Tab) 5 mg PO Q6H PRN PRN Reason: Pain Last Admin: 07/06/21 07:53 Dose: 5 mg Documented by: Oxycodone HCl (Oxycodone 5 Mg Tab) 5 mg PO Q6H PRN PRN Reason: Pain - Exam Quality Assessment: DVT Prophylaxis Urinary Catheter Total Time: 2Days 18Hours General: Alert, Oriented, Cooperative, Mild Distress Lungs: Clear to Auscultation, Normal Respiratory Effort, Decreased Breath Sounds Cardiovascular: Regular Rate, Regular Rhythm, No Murmurs GI/Abdominal Exam: Soft, Non-Tender, No Organomegaly, No Distention Extremities: No Pedal Edema - Patient Data Lab Results Last 24 hrs: Laboratory Results - last 24 hr 07/09/21 07/09/21 Range/Units 05:53 05:53 WBC 12.9 H (4.5-11.0) K/uL RBC 3.65 (3.30-5.50) M/uL Hgb 9.4 L (12.0-15.0) g/dL Hct 31.0 L (36.0-48.0) % MCV 85 (80-98) fL MCH 26 L (27-31) pg MCHC 30 L (32-36) % Plt Count 739 H (150-400) K/uL Sodium 138 L (140-148) mmol/L Potassium 4.8 (3.6-5.2) mmol/L Chloride 101 (100-108) mmol/L Carbon Dioxide 30 (21-32) mmol/L Anion Gap 11.8 (5.0-14.0) mmol/L BUN 9 (7-18) mg/dL Creatinine 0.6 (0.6-1.0) mg/dL Est Cr Clr Drug Dosing 89.84 mL/min Estimated GFR (MDRD) > 60 (>60) Glucose 143 H (74-106) mg/dL Calcium 8.7 (8.5-10.1) mg/dL Result Diagrams: 07/09/21 05:53 07/09/21 05:53 Sepsis Event Note - Evaluation Sepsis Screening Result: Sepsis Risk - Focused Exam Vital Signs: Vital Signs Temp Pulse Resp BP Pulse Ox 07/09/21 11:46 95.4 F L 78 12 125/62 92 L 07/09/21 07:53 96.1 F L 77 14 128/65 96 07/09/21 05:00 95.4 F L 89 16 117/73 92 L - Problem List Review Problem List Initiated/Reviewed/Updated: Yes - My Orders Last 24 Hours: My Active Orders 07/09/21 13:22 Remove Sam Catheter [Urinary Catheter Removal] [RC] PER UNIT ROUTINE 07/09/21 14:05 Consult to Physician [CONS] Routine 07/09/21 14:06 Notify Provider Consults [RC] ASDIRECTED - Plan Plan:: ASSESSMENT AND PLAN - S/P ORIF RIGHT HIP FRACTURE ON 05/19/2021, RIGHT KNEE FRACTURE 05/19/2021-pain has been well controlled. Able to stand for a few seconds on her left leg. Still has a long road to recovery with physical therapy. -Saline lock IV -Continue oxycodone 10 mg as needed -Scheduled Celebrex -consult to PT -consult to OT -Nonweightbearing right leg -Dressing changes for draining right hip hematoma -Consult Dr. Kumari to please assess wound and possible hematoma Acute cystitis without hematuria-urine culture grew out E. coli. -Continue cephalexin Stage II pressure ulcer of the sacral region-mild skin breakdown and redness. Present on admission. Likely related to sitting in her chair for the past week. -Local wound cares Diabetes mellitus type 2-blood sugar control has been excellent. -continue Metformin and Glyburide Tobacco dependence - smokes two cigarettes at night for the past 45 years. no interest in quitting. -declines gum or patch -encouraged to quit smoking Anxiety-stable. -continue outpatient medications Maintenance issues -Nutrition: consistent carb diet -DVT -enoxaparin -GI - Protonix 40mg po daily Disposition: I anticipate discharge to a fdc facility for rehab versus possibly home with home care [facility]
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
--- NOTE | 2021-07-09 15:47 | CR ---
Knee 1V or 2V Rt, Hip Min 2V or 3V Rt CLINICAL HISTORY: Tibial plateau fracture FINDINGS: There is a linear lucency in the lateral right tibia near the intercondylar eminence. Bones appear osteopenic. There is mild periarticular and patellar spurring. Impression: Small lateral tibial plateau fracture Hip Min 2V or 3V Rt CLINICAL HISTORY: Hip fracture, ORIF FINDINGS: Patient has had previous intertrochanteric fracture right hip. There is been placement of an intramedullary marta and compression screw across the trochanteric region. IMPRESSION: Previous intertrochanteric fracture with open reduction
--- NOTE | 2021-07-09 17:53 | PCM.DCSUM1 ---
Discharge Summary - Hospital Course Brief History: Ms. Key is a 61-year-old woman who was admitted through the emergency department because of weakness and the inability to care for herself following recent surgical repair of a right hip fracture. - Discharge Data Discharge Date: 07/10/21 Discharge Disposition: DC/Tfer to SNF 03 Condition: Stable - Referral to Home Health Primary Care Physician: PCP Unknown - Discharge Diagnosis/Problem(s) (1) Weakness SNOMED Code(s): 81436199 ICD Code: R53.1 - WEAKNESS Status: Acute Current Visit: Yes (2) Hematoma complicating a procedure SNOMED Code(s): 784939913, 061260417 ICD Code: [id number] - Status: Acute Current Visit: Yes (3) Fracture of right knee region SNOMED Code(s): 387812835, [id number] ICD Code: TNH9010 - Status: Acute Priority: High Current Visit: Yes Problem Details: nondisplaced tibial plateau fracture (4) Type 2 diabetes mellitus with hyperglycemia SNOMED Code(s): 982057602683101, 411631812930979 ICD Code: E11.65 - TYPE 2 DIABETES MELLITUS WITH HYPERGLYCEMIA Status: Acute Current Visit: No Qualifiers: 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 OT Reason for Consult: ADL's This query below is only for informational purposes and is not editable. Admission Diagnosis/Problem: Rehabilitation therapy PT Evaluation and Treatment [CONS] Routine Please Evaluate and Treat. PT Reason for Consult: Strengthening This query below is only for informational purposes and is not editable. Admission Diagnosis/Problem: Rehabilitation therapy 07/09/21 14:05 Consult to Physician [CONS] Routine Consulting Provider: Frank Kumari Call Completed to Consulting Physician: Yes Reason for Consult: Wound drainage, possible hematoma Hospital Course: Ms. Key is a 61-year-old female who presented to the emergency department with a complaint of ongoing pain. She had presented to the emergency department here on June 18 with a intertrochanteric fracture subsequently transferred to [facility] for surgical intervention. Following operative repair of her right hip fracture she experienced significant pain with attempts at ambulation. Further x-rays did document a tibial plateau fracture that did not require surgical intervention. After the intervention they were unable to secure a rehab facility in the snf for ongoing care and treatment she stayed in the hospital an additional week and then was discharged home. She had been home for a week unfortunately she has not done well she is unable to do any rehab at home has been staying in her recliner most of the time she is currently out of her pain medications. Family members are hoping to find some further treatment options or snf placement for rehab. She was admitted to the hospital here and given IV fluids for hydration as well as increase in pain management regimen. On further evaluation urinalysis did show evidence of underlying urinary tract infection and she was started on oral antibiotic therapy with cephalexin. She was seen daily by physical therapy during her hospital stay. After nazario were removed from surgical incision she did have some bloody drainage from the incision and was noted to have a palpable fullness associated with this it was felt to represent a hematoma. She was seen and evaluated by Dr. Kumari for orthopedic consultation. He felt that the drainage was likely secondary to the hematoma and that it did not require surgical drainage. She will remain on antibiotic therapy until seen for follow- up in 1 week. She will be discharged to the snf for restorative physical therapy and Occupational Therapy. Dr. Kumari recommended 50% weightbearing on the right leg until her follow-up appointment. Follow-up appointment will be scheduled with Dr. Kumari in 1 week. She will be on a diabetic diet. She should return to the emergency department with any increasing drainage from the wound or evidence of infection with erythema or fever. - Patient Instructions Diet: Diabetic Diet Activity: Partial Weight Bearing (50% weightbearing right leg) - Discharge Plan *PRESCRIPTION DRUG MONITORING PROGRAM REVIEWED*: Not Applicable *COPY OF PRESCRIPTION DRUG MONITORING REPORT IN PATIENT KAEL: Not Applicable Prescriptions/Med Rec: Celecoxib [CeleBREX] 200 mg PO DAILY #14 cap cephALEXin [Keflex] 500 mg PO Q8H #21 cap oxyCODONE 10 mg PO Q6H PRN #36 tablet PRN Reason: Pain Home Medications: Home Meds Amitriptyline [Elavil] 10 mg PO BEDTIME 07/29/20 [History] DULoxetine [Cymbalta] 30 mg PO BEDTIME 07/29/20 [History] Meclizine [Antivert] 25 mg PO Q6H PRN 07/29/20 [History] glyBURIDE [Glyburide] 7.5 mg PO BID 07/29/20 [History] metFORMIN [Glucophage] 1,000 mg PO BIDMEALS 07/29/20 [History] diphenhydrAMINE [Benadryl] 25 mg PO Q4H PRN 08/06/20 [History] Ferrous Sulfate [Ferosul] 325 mg PO DAILY 07/05/21 [History] Omeprazole 20 mg PO DAILY 07/05/21 [History] Sennosides/Docusate Sodium [Stool Softener-Laxative] 2 tab PO DAILY PRN 07/05/21 [History] Celecoxib [CeleBREX] 200 mg PO DAILY #14 cap 07/09/21 [Rx] cephALEXin [Keflex] 500 mg PO Q8H #21 cap 07/09/21 [Rx] oxyCODONE 10 mg PO Q6H PRN #36 tablet 07/09/21 [Rx] Patient Handouts: Fall Prevention in the Home, Adult, [id number] Forms: ED Department Discharge Referrals: PCP,Unknown [Primary Care Provider] - - Discharge Summary/Plan Comment DC Time >30 min.: No Total # of Minutes for Discharge Time: 20 - Patient Data Vitals - Most Recent: Last Vital Signs Temp 96.3 F L 07/09/21 15:20 Pulse 83 07/09/21 15:20 Resp 16 07/09/21 15:20 BP 119/53 L 07/09/21 15:20 Pulse Ox 100 07/09/21 15:20 Weight - Most Recent: 204 lb I&O - Last 24 hours: Intake & Output 07/09/21 07/09/21 07/09/21 06:59 14:59 22:59 Intake Total 240 400 Output Total 1200 535 Balance -1200 -295 400 Lab Results - Last 24 hrs: Laboratory Results - last 24 hr 07/09/21 07/09/21 Range/Units 05:53 05:53 WBC 12.9 H (4.5-11.0) K/uL RBC 3.65 (3.30-5.50) M/uL Hgb 9.4 L (12.0-15.0) g/dL Hct 31.0 L (36.0-48.0) % MCV 85 (80-98) fL MCH 26 L (27-31) pg MCHC 30 L (32-36) % Plt Count 739 H (150-400) K/uL Sodium 138 L (140-148) mmol/L Potassium 4.8 (3.6-5.2) mmol/L Chloride 101 (100-108) mmol/L Carbon Dioxide 30 (21-32) mmol/L Anion Gap 11.8 (5.0-14.0) mmol/L BUN 9 (7-18) mg/dL Creatinine 0.6 (0.6-1.0) mg/dL Est Cr Clr Drug Dosing 89.84 mL/min Estimated GFR (MDRD) > 60 (>60) Glucose 143 H (74-106) mg/dL Calcium 8.7 (8.5-10.1) mg/dL Med Orders - Current: Current Medications Albuterol (Albuterol 0.083% 2.5 Mg/3 Ml Neb Soln) 2.5 mg NEB Q4H PRN PRN Reason: Shortness Of Breath/wheezing Amitriptyline HCl (Amitriptyline 10 Mg Tab) 10 mg PO BEDTIME [facility] Last Admin: 07/08/21 21:13 Dose: 10 mg Documented by: Bisacodyl (Bisacodyl 5 Mg Tab) 5 mg PO DAILY PRN PRN Reason: Constipation Last Admin: 07/07/21 08:13 Dose: 5 mg Documented by: Celecoxib (Celecoxib 200 Mg Cap) 200 mg PO DAILY [facility] Last Admin: 07/09/21 09:31 Dose: 200 mg Documented by: Cephalexin (Cephalexin 250 Mg Cap) 500 mg PO BID [facility] Stop: 07/10/21 09:01 Last Admin: 07/09/21 09:35 Dose: 500 mg Documented by: Dimethicone/Zinc Oxide (Dimethicone 20%/Zinc Oxide 25% 56 Gm Fitzgerald Bottle) 1 gm TOP ASDIRECTED PRN PRN Reason: Rash Last Admin: 07/05/21 14:34 Dose: 1 applic Documented by: Diphenhydramine HCl (Diphenhydramine 25 Mg Cap) 25 mg PO Q4H PRN PRN Reason: Itching Last Admin: 07/09/21 12:30 Dose: 25 mg Documented by: Docusate Sodium (Docusate Sodium 100 Mg Cap) 100 mg PO BID [facility] Last Admin: 07/09/21 09:33 Dose: 100 mg Documented by: Duloxetine HCl (Duloxetine 30 Mg Cap) 30 mg PO BEDTIME [facility] Last Admin: 07/08/21 21:13 Dose: 30 mg Documented by: Enoxaparin Sodium (Enoxaparin 40 Mg/0.4 Ml Syringe) 40 mg SUBCUT DAILY [facility] Stop: 07/18/21 10:00 Last Admin: 07/09/21 09:52 Dose: 40 mg Documented by: Ferrous Sulfate (Ferrous Sulfate 325 Mg Tab) 325 mg PO DAILY [facility] Last Admin: 07/09/21 09:34 Dose: 325 mg Documented by: Glyburide (Glyburide 2.5 Mg Tab) 7.5 mg PO BID [facility] Lorazepam (Lorazepam 2 Mg/Ml Sdv) 1 mg IV Q6H PRN PRN Reason: Nausea/Vomiting Magnesium Hydroxide (Magnesium Hydroxide 400 Mg/5 Ml Susp 30 Ml Cup) 30 ml PO BID PRN PRN Reason: Constipation Meclizine HCl (Meclizine 25 Mg Tab) 25 mg PO DAILY [facility] Last Admin: 07/09/21 09:30 Dose: 25 mg Documented by: Metformin HCl (Metformin 500 Mg Tab) 1,000 mg PO BIDMEALS [facility] Last Admin: 07/09/21 16:59 Dose: 1,000 mg Documented by: Ondansetron HCl (Ondansetron 4 Mg Tab.Dis) 4 mg PO Q6H PRN PRN Reason: Nausea able to take PO Last Admin: 07/09/21 10:49 Dose: 4 mg Documented by: Oxycodone HCl (Oxycodone 5 Mg Tab) 10 mg PO Q6H PRN PRN Reason: Pain Last Admin: 07/09/21 14:22 Dose: 10 mg Documented by: Pantoprazole Sodium (Pantoprazole 40 Mg Tab.Cr) 40 mg PO ACBREAKFAST [facility] Last Admin: 07/09/21 07:48 Dose: 40 mg Documented by: Senna/Docusate Sodium (Docusate Sodium/Sennosides 50-8.6 Mg Tab) 2 tab PO DAILY PRN PRN Reason: Constipation Last Admin: 07/07/21 19:47 Dose: 2 tab Documented by: Trolamine Salicylate (Trolamine Salicylate/Aloe Vera 10% Crm 85 Gm Tube) 0 gm TOP Q1H PRN PRN Reason: back pain/muscle spasm Last Admin: 07/08/21 19:20 Dose: 1 applic Documented by: Discontinued Medications Albuterol/Ipratropium (Albuterol/Ipratropium 3.0-0.5 Mg/3 Ml Neb Soln) 3 ml NEB QID PRN PRN Reason: Shortness Of Breath/wheezing Bisacodyl (Bisacodyl 10 Mg Supp) 10 mg RECTAL ONETIME ONE Stop: 07/08/21 10:06 Last Admin: 07/08/21 12:22 Dose: Not Given Documented by: Fentanyl (Fentanyl 100 Mcg/2 Ml Sdv) 50 mcg IVPUSH Q4H PRN PRN Reason: Pain Last Admin: 07/07/21 23:28 Dose: 50 mcg Documented by: Glyburide (Glyburide 2.5 Mg Tab) Confirm Administered Dose 2.5 mg .ROUTE .STK- MED ONE Stop: 07/05/21 21:22 Last Admin: 07/05/21 21:38 Dose: Not Given Documented by: Sodium Chloride (Normal Saline) 1,000 mls @ 125 mls/hr IV ASDIRECTED [facility] Last Admin: 07/06/21 04:19 Dose: 125 mls/hr Documented by: Ceftriaxone Sodium 1 gm/ (Sodium Chloride) 50 mls @ 100 mls/hr IV Q24H [facility] Last Admin: 07/06/21 22:13 Dose: 100 mls/hr Documented by: Magnesium Sulfate 2 gm/ Premix 50 mls @ 25 mls/hr IV ONETIME ONE Stop: 07/06/21 14:29 Last Admin: 07/06/21 12:33 Dose: 25 mls/hr Documented by: Influenza Virus Vaccine (Pharmacy To Dose - Influenza Vaccine) 1 each IM ONETIME ONE Stop: 07/05/21 20:33 Influenza Virus Vaccine (Flu Vacc [id number](6mos Up)/Pf 60 Mcg/0.5 Ml Syringe) 60 mcg IM .ONCE ONE Stop: 07/05/21 21:01 Last Admin: 07/06/21 06:09 Dose: Not Given Documented by: Meclizine HCl (Meclizine 25 Mg Tab) 25 mg PO Q6H PRN PRN Reason: Dizziness Last Admin: 07/07/21 07:25 Dose: 25 mg Documented by: Non-Formulary Medication (Glyburide [Glyburide]) 7.5 mg PO BID [facility] Last Admin: 07/05/21 21:37 Dose: 7.5 mg Documented by: Non-Formulary Medication (Metformin [Glucophage]) 1,000 mg PO BIDMEALS [facility] Last Admin: 07/05/21 16:24 Dose: 1,000 mg Documented by: Non-Formulary Medication (Omeprazole [Omeprazole]) 20 mg PO DAILY [facility] Last Admin: 07/05/21 16:24 Dose: 20 mg Documented by: Oxycodone HCl (Oxycodone 5 Mg Tab) 5 mg PO Q6H PRN PRN Reason: Pain Last Admin: 07/06/21 07:53 Dose: 5 mg Documented by: Oxycodone HCl (Oxycodone 5 Mg Tab) 5 mg PO Q6H PRN PRN Reason: Pain - Exam General: Reports: Alert, Oriented, Cooperative, Mild Distress Lungs: Reports: Clear to Auscultation, Normal Respiratory Effort Cardiovascular: Reports: Regular Rate, Regular Rhythm, No Murmurs GI/Abdominal Exam: Soft, Non-Tender, No Organomegaly, No Distention Extremities: Other (Mild drainage right hip wound with associated large hematoma)
[2021-07-09] MEDS: DULoxetine 30 MG Cap PO SCH (21:03)
[2021-07-09] MEDS: Amitriptyline 10 MG Tab PO SCH (21:06)
[2021-07-10] MEDS: oxyCODONE 5 MG Tab PO PRN ×2 (06:29→11:59)
[2021-07-10] MEDS: Pantoprazole 40 MG Tab.CR PO SCH (08:26)
[2021-07-10] MEDS: Ferrous Sulfate 325 MG Tab PO SCH (08:27)
[2021-07-10] MEDS: metFORMIN 500 MG Tab PO SCH (08:27)
[2021-07-10] MEDS: Docusate Sodium 100 MG Cap PO SCH (08:27)
[2021-07-10] MEDS: Meclizine 25 MG Tab PO SCH (08:27)
[2021-07-10] MEDS: Celecoxib 200 MG Cap PO SCH (08:28)
[2021-07-10] MEDS: Cephalexin 250 MG Cap PO SCH (08:29)
[2021-07-10] MEDS: Ondansetron 4 MG Tab.DIS PO PRN (09:34)
== END 2021-07-10 12:25 | DRG 560 ==
LOC: JP.ED 10:58 → JP.MS 18:56
PROVIDERS: ADMIT Internal Medicine; ATTEND Internal Medicine
DX: S72.141D Displaced intertrochanteric fracture of right femur, subsequent encounter for closed fracture with routine healing (principal); M96.840 Postprocedural hematoma of a musculoskeletal structure following a musculoskeletal system procedure; N30.00 Acute cystitis without hematuria; R53.1 Weakness; E11.65 Type 2 diabetes mellitus with hyperglycemia; X58.XXXD Exposure to other specified factors, subsequent encounter; S82.141D Displaced bicondylar fracture of right tibia, subsequent encounter for closed fracture with routine healing; B96.20 Unspecified Escherichia coli [E. coli] as the cause of diseases classified elsewhere; Y83.8 Other surgical procedures as the cause of abnormal reaction of the patient, or of later complication, without mention of misadventure at the time of the procedure; L89.152 Pressure ulcer of sacral region, stage 2; H54.7 Unspecified visual loss; J45.909 Unspecified asthma, uncomplicated; K21.9 Gastro-esophageal reflux disease without esophagitis; F17.210 Nicotine dependence, cigarettes, uncomplicated; E11.21 Type 2 diabetes mellitus with diabetic nephropathy; E11.42 Type 2 diabetes mellitus with diabetic polyneuropathy; F41.9 Anxiety disorder, unspecified; Z98.51 Tubal ligation status; Z79.899 Other long term (current) drug therapy; Z79.4 Long term (current) use of insulin; Z88.5 Allergy status to narcotic agent; Z88.0 Allergy status to penicillin; Z88.8 Allergy status to other drugs, medicaments and biological substances; Z88.6 Allergy status to analgesic agent; Z87.81 Personal history of (healed) traumatic fracture; Z98.890 Other specified postprocedural states; Z20.822 Contact with and (suspected) exposure to COVID-19
CPT/HCPCS: 0241U; 36415; 51702; 71101-26-LT; 71101-LT; 73502-26-RT; 73502-RT; 73560-26-RT; 73560-RT; 80048; 80053; 81001; 82947; 83735; 85025; 85027; 87086; 87088; 87186; 94762; 97110-GP; 97163-GP; 97165-GO; 97530-GP; 99285-25; A9270-GY; J0696; J1650; J3010; J3475; J7030

== ENCOUNTER 2022-03-05 17:54 | Emergency (ER) | payer MEDICAID | END 2022-03-05 18:59 | disposition home or self-care (01) | LOC: JP.ED 17:54 | DX: R35.89 Other polyuria (principal); E11.40 Type 2 diabetes mellitus with diabetic neuropathy, unspecified; Z91.14 Patient's other noncompliance with medication regimen; F17.210 Nicotine dependence, cigarettes, uncomplicated; Z79.899 Other long term (current) drug therapy; Z88.0 Allergy status to penicillin; Z88.8 Allergy status to other drugs, medicaments and biological substances; Z88.6 Allergy status to analgesic agent | CPT/HCPCS: 81001; 82947; 87086; 87088; 87186; 99283 ==

== ENCOUNTER 2023-01-04 14:22 | Emergency (ER) | payer MEDICAID ==
[2023-01-04] MEDS ORDERED: Ketorolac 30 MG/ML SDV IM ONE (15:18)
== END 2023-01-04 16:27 | disposition home or self-care (01) ==
LOC: JP.ED 14:22
DX: S92.421A Displaced fracture of distal phalanx of right great toe, initial encounter for closed fracture (principal); J45.909 Unspecified asthma, uncomplicated; E11.21 Type 2 diabetes mellitus with diabetic nephropathy; E11.40 Type 2 diabetes mellitus with diabetic neuropathy, unspecified; Z88.8 Allergy status to other drugs, medicaments and biological substances; Z88.5 Allergy status to narcotic agent; Z88.0 Allergy status to penicillin; Z79.84 Long term (current) use of oral hypoglycemic drugs; Z87.891 Personal history of nicotine dependence
CPT/HCPCS: 73660; 96372; 99283; J1885; 99282

== ENCOUNTER 2024-12-17 09:47 | Inpatient (IN) | payer MEDICAID ==
[2024-12-17] MEDS ORDERED: Melatonin 3 MG Tab PO PRN (11:45)
[2024-12-17] MEDS ORDERED: Ondansetron 4 MG/2 ML SDV IV PRN (11:45)
[2024-12-17] MEDS ORDERED: Sennosides/Docusate Sodium 50-8.6 MG Tab PO PRN (11:45)
[2024-12-17] MEDS: ceFAZolin 2 GM in Sodium Chloride 0.9% 50 ML IV SCH (14:04)
[2024-12-17] MEDS ORDERED: tiZANidine 2 MG Tab PO PRN (14:32)
[2024-12-17] MEDS: Ondansetron 4 MG Tab.DIS PO PRN (15:54)
[2024-12-17] MEDS: HYDROmorphone 2 MG Tab PO PRN (15:55)
[2024-12-17] MEDS: Insulin Lispro 100 Unit/ML 3 ML KwikPen SUBCUT SCH (17:15)
[2024-12-17] MEDS: Lactobacillus Rhamnosus GG (Probiotic) Cap PO SCH (21:08)
[2024-12-17] MEDS: Calcium Carbonate/Vitamin D3 1500 MG-400 Units Tab PO SCH (21:08)
[2024-12-17] MEDS: Melatonin 3 MG Tab PO SCH (21:08)
[2024-12-17] MEDS: DULoxetine 30 MG Cap PO SCH (21:08)
[2024-12-17] MEDS: Insulin Glargine,Human Rec. Analog 100 Units/ML 3 ML Pen SUBCUT SCH (21:08)
[2024-12-17] MEDS: Amitriptyline 25 MG Tab PO SCH (21:08)
[2024-12-18] MEDS: Cholecalciferol (Vitamin D3) 25 MCG Tab PO SCH (08:52)
[2024-12-18] MEDS: atorvaSTATin 20 MG Tab PO SCH (08:52)
[2024-12-18] MEDS: Pantoprazole 40 MG Tab.CR PO SCH (08:52)
[2024-12-18] MEDS: Lidocaine 4% Patch TOP SCH (10:25)
[2024-12-19] MEDS ORDERED: Insulin Glargine,Human Rec. Analog 100 Units/ML 3 ML Pen SUBCUT SCH (09:00)
[2024-12-22 05:49] LABS: BASOPHILS ABSOLUTE AUTO 0.05 K/uL (0.00-0.10); BASOPHILS PERCENT AUTO 0.4 % (0.1-1.3); EOSINOPHILS ABSOLUTE AUTO 0.49 K/uL (0.00-0.40); EOSINOPHILS PERCENT AUTO 4.2 % (0.0-5.4); HEMATOCRIT 26.3 % (34.3-46.0); HEMOGLOBIN 8.5 g/dL (11.2-15.5); IMMATURE GRAN ABSOLUTE AUTO 0.08 K/uL (0.00-0.23); IMMATURE GRAN PERCENT AUTO 0.7 % (0.0-0.7); LYMPHOCYTES ABSOLUTE AUTO 1.49 K/uL (0.8-3.3); LYMPHOCYTES PERCENT AUTO 12.7 % (11.4-47.7); MEAN CORPUSCULAR HEMOGLOBIN 28.6 pg (31.6-35.5); MEAN CORPUSCULAR HGB CONC 32.3 g/dL (31.6-35.5); MEAN CORPUSCULAR VOLUME 88.6 fL (81.4-99.0); MONOCYTES ABSOLUTE AUTO 0.78 K/uL (0.20-0.90); MONOCYTES PERCENT AUTO 6.7 % (3.3-12.6); NEUTROPHILS PERCENT AUTO 75.3 % (40.0-78.1); PLATELET COUNT,PLT 324 K/uL (130-375); RED BLOOD CELL COUNT 2.97 M/uL (3.77-5.24); WHITE BLOOD CELL COUNT,WBC 11.7 K/uL (3.2-11.0)
[2024-12-22 06:10] LABS: A/G RATIO 0.5 (1.2-2.2); ALANINE AMINOTRANSFERASE,ALT 10 U/L (12-78); ALKALINE PHOSPHATASE 128 U/L (46-116); ASPARTATE AMNIOTRANSFERASE,AST 23 U/L (15-37); BILIRUBIN TOTAL 0.5 mg/dL (0.2-1.0); BLOOD UREA NITROGEN,BUN 19 mg/dL (7-18); C-REACTIVE PROTEIN 5.47 mg/dL (<0.50); CALCIUM 8.3 mg/dL (8.5-10.1); CARBON DIOXIDE,CO2 28 mmol/L (21-32); CHLORIDE,CL 104 mmol/L (100-108); CREATININE 1.2 mg/dL (0.6-1.0); EST CRCL DRUG DOSING (CG) 43.41 mL/min; ESTIMATED GFR 50 mL/min (>60); GLUCOSE RANDOM 130 mg/dL (74-106); POTASSIUM,K 3.8 mmol/L (3.6-5.2); PROTEIN TOTAL,TP 6.4 g/dL (6.4-8.2); SODIUM,NA 139 mmol/L (140-148)
[2024-12-22 06:13] LABS: ANION GAP 10.8 mmol/L (5.0-14.0)
[2024-12-24 07:23] LABS: HEMATOCRIT 28.9 % (34.3-46.0); HEMOGLOBIN 9.5 g/dL (11.2-15.5); MEAN CORPUSCULAR HGB CONC 32.9 g/dL (31.6-35.5); MEAN CORPUSCULAR VOLUME 88.1 fL (81.4-99.0); RED BLOOD CELL COUNT 3.28 M/uL (3.77-5.24); WHITE BLOOD CELL COUNT,WBC 14.3 K/uL (3.2-11.0)
[2024-12-24 07:44] LABS: A/G RATIO 0.5 (1.2-2.2); ALANINE AMINOTRANSFERASE,ALT 11 U/L (12-78); ALBUMIN 2.1 g/dL (3.4-5.0); ALKALINE PHOSPHATASE 129 U/L (46-116); ANION GAP 6.5 mmol/L (5.0-14.0); ASPARTATE AMNIOTRANSFERASE,AST 19 U/L (15-37); BILIRUBIN TOTAL 0.4 mg/dL (0.2-1.0); BLOOD UREA NITROGEN,BUN 22 mg/dL (7-18); CALCIUM 8.5 mg/dL (8.5-10.1); CARBON DIOXIDE,CO2 30 mmol/L (21-32); CHLORIDE,CL 104 mmol/L (100-108); CREATININE 1.3 mg/dL (0.6-1.0); EST CRCL DRUG DOSING (CG) 40.07 mL/min; ESTIMATED GFR 45 mL/min (>60); GLUCOSE RANDOM 156 mg/dL (74-106); POTASSIUM,K 4.4 mmol/L (3.6-5.2); PROTEIN TOTAL,TP 6.8 g/dL (6.4-8.2); SODIUM,NA 140 mmol/L (140-148)
[2024-12-27] MEDS: Ibuprofen 600 MG Tab PO PRN (08:05)
[2024-12-28] MEDS: Sodium Chloride 0.9% 10 ML Syringe IV PRN (04:51)
[2024-12-30 08:09] LABS: BASOPHILS ABSOLUTE AUTO 0.08 K/uL (0.00-0.10); BASOPHILS PERCENT AUTO 0.7 % (0.1-1.3); EOSINOPHILS ABSOLUTE AUTO 0.69 K/uL (0.00-0.40); EOSINOPHILS PERCENT AUTO 6.3 % (0.0-5.4); HEMATOCRIT 28.9 % (34.3-46.0); HEMOGLOBIN 9.2 g/dL (11.2-15.5); IMMATURE GRAN ABSOLUTE AUTO 0.04 K/uL (0.00-0.23); IMMATURE GRAN PERCENT AUTO 0.4 % (0.0-0.7); LYMPHOCYTES ABSOLUTE AUTO 1.32 K/uL (0.8-3.3); LYMPHOCYTES PERCENT AUTO 12.1 % (11.4-47.7); MEAN CORPUSCULAR HEMOGLOBIN 28.4 pg (31.6-35.5); MEAN CORPUSCULAR HGB CONC 31.8 g/dL (31.6-35.5); MEAN CORPUSCULAR VOLUME 89.2 fL (81.4-99.0); MONOCYTES ABSOLUTE AUTO 0.71 K/uL (0.20-0.90); MONOCYTES PERCENT AUTO 6.5 % (3.3-12.6); PLATELET COUNT,PLT 353 K/uL (130-375); RED BLOOD CELL COUNT 3.24 M/uL (3.77-5.24); WHITE BLOOD CELL COUNT,WBC 10.9 K/uL (3.2-11.0)
[2024-12-30 08:29] LABS: A/G RATIO 0.5 (1.2-2.2); ALANINE AMINOTRANSFERASE,ALT 8 U/L (12-78); ALBUMIN 2.4 g/dL (3.4-5.0); ALKALINE PHOSPHATASE 112 U/L (46-116); ANION GAP 7.7 mmol/L (5.0-14.0); ASPARTATE AMNIOTRANSFERASE,AST 15 U/L (15-37); BILIRUBIN TOTAL 0.4 mg/dL (0.2-1.0); BLOOD UREA NITROGEN,BUN 30 mg/dL (7-18); C-REACTIVE PROTEIN 1.62 mg/dL (<0.50); CALCIUM 8.8 mg/dL (8.5-10.1); CARBON DIOXIDE,CO2 27 mmol/L (21-32); CHLORIDE,CL 105 mmol/L (100-108); CREATININE 1.1 mg/dL (0.6-1.0); EST CRCL DRUG DOSING (CG) 47.35 mL/min; ESTIMATED GFR 55 mL/min (>60); GLUCOSE RANDOM 145 mg/dL (74-106); POTASSIUM,K 4.6 mmol/L (3.6-5.2); SODIUM,NA 140 mmol/L (140-148)
[2025-01-05] MEDS: Ibuprofen 400 MG Tab PO PRN (09:34)
[2025-01-06 06:08] LABS: BASOPHILS ABSOLUTE AUTO 0.11 K/uL (0.00-0.10); EOSINOPHILS ABSOLUTE AUTO 0.72 K/uL (0.00-0.40); EOSINOPHILS PERCENT AUTO 6.9 % (0.0-5.4); HEMATOCRIT 28.7 % (34.3-46.0); HEMOGLOBIN 9.2 g/dL (11.2-15.5); IMMATURE GRAN ABSOLUTE AUTO 0.05 K/uL (0.00-0.23); IMMATURE GRAN PERCENT AUTO 0.5 % (0.0-0.7); LYMPHOCYTES ABSOLUTE AUTO 1.65 K/uL (0.8-3.3); LYMPHOCYTES PERCENT AUTO 15.7 % (11.4-47.7); MEAN CORPUSCULAR HEMOGLOBIN 28.2 pg (31.6-35.5); MEAN CORPUSCULAR HGB CONC 32.1 g/dL (31.6-35.5); MONOCYTES ABSOLUTE AUTO 0.74 K/uL (0.20-0.90); MONOCYTES PERCENT AUTO 7.1 % (3.3-12.6); NEUTROPHILS ABSOLUTE AUTO 7.22 K/uL (1.0-7.6); NEUTROPHILS PERCENT AUTO 68.8 % (40.0-78.1); PLATELET COUNT,PLT 317 K/uL (130-375); RED BLOOD CELL COUNT 3.26 M/uL (3.77-5.24); WHITE BLOOD CELL COUNT,WBC 10.5 K/uL (3.2-11.0)
[2025-01-06 06:30] LABS: A/G RATIO 0.6 (1.2-2.2); ALANINE AMINOTRANSFERASE,ALT 9 U/L (12-78); ALBUMIN 2.4 g/dL (3.4-5.0); ALKALINE PHOSPHATASE 94 U/L (46-116); ANION GAP 8.1 mmol/L (5.0-14.0); ASPARTATE AMNIOTRANSFERASE,AST 12 U/L (15-37); BILIRUBIN TOTAL 0.4 mg/dL (0.2-1.0); BLOOD UREA NITROGEN,BUN 25 mg/dL (7-18); C-REACTIVE PROTEIN 0.74 mg/dL (<0.50); CALCIUM 8.7 mg/dL (8.5-10.1); CARBON DIOXIDE,CO2 26 mmol/L (21-32); CHLORIDE,CL 107 mmol/L (100-108); EST CRCL DRUG DOSING (CG) 52.09 mL/min; ESTIMATED GFR 62 mL/min (>60); GLUCOSE RANDOM 153 mg/dL (74-106); POTASSIUM,K 5.2 mmol/L (3.6-5.2); PROTEIN TOTAL,TP 6.7 g/dL (6.4-8.2); SODIUM,NA 141 mmol/L (140-148)
[2025-01-08] MEDS: Fluticasone NASAL Spray 16 GM Bottle NASBOTH SCH (11:29)
[2025-01-12] MEDS: Loratadine 10 MG Tab PO SCH (13:20)
[2025-01-13 06:12] LABS: BASOPHILS ABSOLUTE AUTO 0.08 K/uL (0.00-0.10); BASOPHILS PERCENT AUTO 0.8 % (0.1-1.3); EOSINOPHILS ABSOLUTE AUTO 0.61 K/uL (0.00-0.40); EOSINOPHILS PERCENT AUTO 6.1 % (0.0-5.4); HEMATOCRIT 31.4 % (34.3-46.0); HEMOGLOBIN 9.9 g/dL (11.2-15.5); IMMATURE GRAN ABSOLUTE AUTO 0.06 K/uL (0.00-0.23); IMMATURE GRAN PERCENT AUTO 0.6 % (0.0-0.7); LYMPHOCYTES ABSOLUTE AUTO 1.76 K/uL (0.8-3.3); LYMPHOCYTES PERCENT AUTO 17.5 % (11.4-47.7); MEAN CORPUSCULAR HEMOGLOBIN 28.3 pg (31.6-35.5); MEAN CORPUSCULAR HGB CONC 31.5 g/dL (31.6-35.5); MEAN CORPUSCULAR VOLUME 89.7 fL (81.4-99.0); NEUTROPHILS ABSOLUTE AUTO 6.83 K/uL (1.0-7.6); PLATELET COUNT,PLT 278 K/uL (130-375)
[2025-01-13 06:35] LABS: A/G RATIO 0.6 (1.2-2.2); ALANINE AMINOTRANSFERASE,ALT 10 U/L (12-78); ALBUMIN 2.5 g/dL (3.4-5.0); ALKALINE PHOSPHATASE 118 U/L (46-116); ANION GAP 9.1 mmol/L (5.0-14.0); ASPARTATE AMNIOTRANSFERASE,AST 13 U/L (15-37); BILIRUBIN TOTAL 0.3 mg/dL (0.2-1.0); BLOOD UREA NITROGEN,BUN 32 mg/dL (7-18); CALCIUM 8.7 mg/dL (8.5-10.1); CARBON DIOXIDE,CO2 27 mmol/L (21-32); CHLORIDE,CL 107 mmol/L (100-108); CREATININE 1.1 mg/dL (0.6-1.0); EST CRCL DRUG DOSING (CG) 47.35 mL/min; ESTIMATED GFR 55 mL/min (>60); GLUCOSE RANDOM 152 mg/dL (74-106); POTASSIUM,K 4.4 mmol/L (3.6-5.2); PROTEIN TOTAL,TP 6.5 g/dL (6.4-8.2); SODIUM,NA 143 mmol/L (140-148)
[2025-01-13 06:43] LABS: C-REACTIVE PROTEIN < 0.50 mg/dL (<0.50)
[2025-01-19 06:09] LABS: BASOPHILS ABSOLUTE AUTO 0.08 K/uL (0.00-0.10); BASOPHILS PERCENT AUTO 0.7 % (0.1-1.3); EOSINOPHILS ABSOLUTE AUTO 0.66 K/uL (0.00-0.40); EOSINOPHILS PERCENT AUTO 6.2 % (0.0-5.4); HEMATOCRIT 32.6 % (34.3-46.0); HEMOGLOBIN 10.4 g/dL (11.2-15.5); IMMATURE GRAN ABSOLUTE AUTO 0.07 K/uL (0.00-0.23); IMMATURE GRAN PERCENT AUTO 0.7 % (0.0-0.7); LYMPHOCYTES ABSOLUTE AUTO 1.82 K/uL (0.8-3.3); LYMPHOCYTES PERCENT AUTO 17.1 % (11.4-47.7); MEAN CORPUSCULAR HEMOGLOBIN 28.7 pg (31.6-35.5); MEAN CORPUSCULAR HGB CONC 31.9 g/dL (31.6-35.5); MEAN CORPUSCULAR VOLUME 90.1 fL (81.4-99.0); MONOCYTES ABSOLUTE AUTO 0.58 K/uL (0.20-0.90); MONOCYTES PERCENT AUTO 5.4 % (3.3-12.6); NEUTROPHILS ABSOLUTE AUTO 7.46 K/uL (1.0-7.6); NEUTROPHILS PERCENT AUTO 69.9 % (40.0-78.1); PLATELET COUNT,PLT 219 K/uL (130-375); RED BLOOD CELL COUNT 3.62 M/uL (3.77-5.24); WHITE BLOOD CELL COUNT,WBC 10.7 K/uL (3.2-11.0)
[2025-01-19 06:27] LABS: A/G RATIO 0.6 (1.2-2.2); ALANINE AMINOTRANSFERASE,ALT 8 U/L (12-78); ALBUMIN 2.6 g/dL (3.4-5.0); ALKALINE PHOSPHATASE 118 U/L (46-116); ANION GAP 9.1 mmol/L (5.0-14.0); ASPARTATE AMNIOTRANSFERASE,AST 17 U/L (15-37); BILIRUBIN TOTAL 0.4 mg/dL (0.2-1.0); BLOOD UREA NITROGEN,BUN 34 mg/dL (7-18); C-REACTIVE PROTEIN 0.59 mg/dL (<0.50); CALCIUM 8.5 mg/dL (8.5-10.1); CARBON DIOXIDE,CO2 27 mmol/L (21-32); CHLORIDE,CL 106 mmol/L (100-108); CREATININE 1.1 mg/dL (0.6-1.0); EST CRCL DRUG DOSING (CG) 47.35 mL/min; ESTIMATED GFR 55 mL/min (>60); GLUCOSE RANDOM 158 mg/dL (74-106); POTASSIUM,K 4.3 mmol/L (3.6-5.2); PROTEIN TOTAL,TP 6.7 g/dL (6.4-8.2); SODIUM,NA 142 mmol/L (140-148)
== END 2025-01-20 14:05 | disposition home or self-care (01) | DRG 950 ==
LOC: JP.MS 10:52
PROVIDERS: ADMIT Internal Medicine; ATTEND Hospitalist
DX: T84.59XD Infection and inflammatory reaction due to other internal joint prosthesis, subsequent encounter (principal); J45.909 Unspecified asthma, uncomplicated; K21.9 Gastro-esophageal reflux disease without esophagitis; E11.21 Type 2 diabetes mellitus with diabetic nephropathy; H54.7 Unspecified visual loss; F41.9 Anxiety disorder, unspecified; F32.A Depression, unspecified; F17.210 Nicotine dependence, cigarettes, uncomplicated; E11.65 Type 2 diabetes mellitus with hyperglycemia; Z88.5 Allergy status to narcotic agent; Z88.0 Allergy status to penicillin; Z88.8 Allergy status to other drugs, medicaments and biological substances; Z79.84 Long term (current) use of oral hypoglycemic drugs; Z79.4 Long term (current) use of insulin; Z79.899 Other long term (current) drug therapy; Z87.81 Personal history of (healed) traumatic fracture; Z98.51 Tubal ligation status; Y83.1 Surgical operation with implant of artificial internal device as the cause of abnormal reaction of the patient, or of later complication, without mention of misadventure at the time of the procedure
CPT/HCPCS: 36415; 80053; 82947; 85025; 85027; 86140; 97110-GP; 97116-GP; 97161-GP; 97165-GO; 97530-GP; 97535-GO; 99305; 99308; 99309; 99315; A9270-GY; J0690; J1815; J1815-GY; Q0162